=== PATIENT | female | born 1970 | race Caucasian/White ===

== ENCOUNTER 2017-02-27 21:03 | Observation (INO) ==
--- NOTE | 2017-02-27 21:15 | Emergency Department Note ---
Disposition Clinical Impression: Chest pain Qualifiers: Chest pain type: unspecified Qualified Code(s): R07.9 - Chest pain, unspecified Leukocytosis Qualifiers: Leukocytosis type: unspecified Qualified Code(s): D72.829 - Elevated white blood cell count, unspecified Disposition: Admitted As Inpatient Time of Disposition: 02:02 Chest Pain HPI - General Chief Complaint: ED Chest Pain Stated Complaint: Chest pain Time Seen by Provider: 02/27/17 21:06 Source: patient Limitations: no limitations Vital Signs Reviewed: Yes Nursing Notes Reviewed: Yes - History of Present Illness Pt complaint: chest pain Onset (ago): hour(s) Duration: intermittent Onset: during rest Pain Location: right chest Severity scale (1-10): 10 Pain Radiation: back (right thoracic region) Improves with: nothing Worsens with: inspiration Associated symptoms: Denies: vomiting, diaphoresis, dyspnea, palpitations, fever , cough, leg swelling Treatments prior to arrival chest pain: none - Related Data Home Medications Medication Instructions Recorded Confirmed Hydrochlorothiazide 25 mg PO DAILY 04/28/15 04/28/15 Loratadine [Claritin] 10 mg PO DAILY PRN 04/28/15 04/28/15 Previous Rx's Medication Instructions Recorded ALPRAZolam [Xanax 0.5 MG Tablet] 0.5 mg PO TID PRN #90 tablet 04/29/15 Docusate [Colace] 100 mg PO BID PRN #60 capsule 04/29/15 Ferrous Sulfate 325 mg PO BID #60 tablet 04/29/15 Ibuprofen [Motrin] 600 mg PO Q6HR PRN #40 tablet 04/29/15 OxyCODONE/APAP 5/325 [Percocet 1 each PO Q4HR PRN #40 tablet 04/29/15 5/325] Allergies Allergy/AdvReac Type Severity Reaction Status Date / Time No Known Allergies Allergy Verified 04/21/15 12:18 All systems ED: reviewed and negative except as stated. Constitutional: Denies: fever, chills Eyes: Denies: eye pain ENT ED: Denies: ear pain Cardiovascular: Reports: as per HPI Respiratory: Denies: cough, dyspnea, wheezes, hemoptysis Gastrointestinal: Denies: abdominal pain Musculoskeletal: Reports: as per HPI. Denies: neck pain Integumentary: Denies: rash Neurological: Denies: headache Psychiatric: Reports: anxiety Endocrine: Denies: fatigue Hematological/Lymphatic: Denies: easy bleeding Allergic/Immunologic: Denies: facial swelling Chest Pain PMH - Past Medical History Medical history: Reports: no medical history Psychiatric history: Reports: anxiety - Social History Smoking Status: Never smoker Alcohol use: Reports: none, occasionally Drug use: Reports: none Physical Exam - General Limitations: no limitations General appearance: alert, in no apparent distress - Head Head exam: normocephalic - Eye Eye exam: Present: EOMI - ENT ENT exam: mucous membranes moist - Neck Neck exam: Present: full ROM. Absent: tenderness - Chest Chest inspection: Present: symmetric chest wall rise - Respiratory Respiratory exam: Present: normal lung sounds bilaterally. Absent: respiratory distress, wheezes, stridor, accessory muscle use - Cardiovascular Cardiovascular exam: Present: regular rate, normal rhythm, normal heart sounds - Abdominal Exam Abdominal exam: Present: soft, Non-Tender - Extremities Exam Extremities exam: Present: full ROM - Back Exam Back exam: Present: full ROM. Absent: CVA tenderness (R), CVA tenderness (L) - Neurological Exam Neurological exam: Present: alert - Psychiatric Psychiatric exam: Present: normal affect - Skin Skin exam: Present: warm, dry, intact, normal color. Absent: rash, cyanosis, diaphoresis Course Course Narrative: Patient is a 46-year-old female male ambulates to the exam room with complaints of intermittent right-sided chest pain that started earlier today. Patient was initially seen at triage area per request of the nursing. Patient hypertensive otherwise vitals within normal limits. Patient denies history of PE, DVT, cough , fever, dyspnea, orthopnea, or similar symptoms on exertion. Patient is in no acute distress, she does not look toxic. Lungs clear to auscultation. Heart regular rate and rhythm. Pain is not worse with palpation , or movement of extremities. No radiation of pain to back, or upper extremities. No labored breathing, no diaphoresis. Radial pulses equal bilaterally. Workup initiated. - Reevaluation(s) Reevaluation #1: EKG ST changes in v4-v6, with comparison to EKG from 2015. Patient was discussed with Dr. Hutchinson who agreed with workup and decision for admit for cardiac rule out. Patient also mentions she had a stress test and echo a few months ago with her disaster or damage control specialist Julius. She had these performed after having palpitations. Patient tells me that these had been normal, and a performed at [facility] [place]. I have requested her records. Patient had contacted Dr. Madrid via text messaging while she was here in the department, patient mentioned she was agreeable for phone call. I had called Dr. Madrid and spoke with him regarding the patient. He did mention that patient had a normal stress and echo earlier this year, but had agreed that patient should be admitted regardless of patient's EKG comparison with her more recent EKG. Patient had initially declined IV, but is now agreeable, and is now requesting pain medication as well. Aspirin ordered. Nitroglycerin ordered. Time: 22:09 Reevaluation #2: No relief from Nitro. Two-view chest x-ray shows right middle lobe infiltrate. Patient also has a slight increased white blood cell count he denies fever home and is afebrile here. She does mention a cough, and is observed coughing in exam room, but states it is related to her allergies. Blood cultures, lactic ordered. Time: 22:18 Reevaluation #3: Patient did become hypotensive after nitroglycerin, fluids have been ordered. She has declined IV morphine for pain but was agreeable to Toradol, with mild improveent. At this point we have not received records from [facility] where patient had had recent cardiac workup. She is resting comfortably in exam bed. Patient discussed with and accepted by hospitalist Dr. Lopez who had requested repeat troponin, IV Rocephin, and po azithromycin. Time: 02:01 Vital Signs Temperature 98.2 F 02/27/17 21:04 Pulse Rate 91 02/27/17 21:04 Respiratory Rate 20 02/27/17 21:04 Blood Pressure 169/95 02/27/17 21:04 O2 Sat by Pulse Oximetry 100 02/27/17 21:04 Temperature 98.2 F 02/27/17 21:04 Pulse Rate 80 02/28/17 00:49 Respiratory Rate 18 02/28/17 00:49 Blood Pressure 117/78 02/28/17 00:49 O2 Sat by Pulse Oximetry 98 02/28/17 00:49 Oxygen Delivery Oxygen Delivery Room Air Chest Pain - Lab Data Result diagrams: 02/27/17 21:30 02/27/17 21:30 Lab Results 02/27/17 02/27/17 02/27/17 Range/Units 21:30 21:30 21:30 WBC 11.4 H (4.3-11.1) K/mcL RBC 4.58 (3.82-4.97) M/mcL Hgb 13.5 (11.5-15.4) g/dL Hct 39.4 (35.3-44.9) % MCV 86.0 (83.0-100.0) fL MCH 29.5 (28.0-33.3) pg MCHC 34.3 (31.6-35.5) g/dL RDW 12.7 (11.5-14.5) % Plt Count 360 (140-400) K/mcL MPV 9.4 (9.4-12.4) fL Immature Gran % 0.4 (0-4) % Seg Neutrophils % 67.6 % Lymphocytes % 21.6 % Monocytes % 8.7 % Eosinophils % 1.3 % Basophils % 0.4 % Neutrophils # 7.7 (1.6-8.9) K/mcL Lymphocytes # 2.5 (0.6-4.6) K/mcL Monocytes # 1.0 (0.0-1.3) K/mcL Eosinophils # 0.2 (0.0-0.6) K/mcL Basophils # 0.1 (0.0-0.2) K/mcL Immature Plt Fraction 2.0 (1.1-6.1) % Sodium 138 (136-145) mEq/L Potassium 3.0 L (3.5-4.5) mEq/L Chloride 102 (98-109) mEq/L Carbon Dioxide 23 (19-29) mEq/L BUN 24 H (7-20) mg/dL Creatinine 1.00 (0.57-1.11) mg/dL Est GFR ( Amer) > 60 (> 60) Est GFR (Non-Af Amer) 60 (> 60) BUN/Creatinine Ratio 24 (6-26) Glucose 95 (70-99) mg/dL Calculated Osmolality 290 (280-300) Lactic Acid (0.5-2.2) mmol/L Calcium 9.4 (8.6-10.8) mg/dL Troponin I 0.00 (0-0.03) ng/mL 08/31/17 Range/Units 22:38 WBC (4.3-11.1) K/mcL RBC (3.82-4.97) M/mcL Hgb (11.5-15.4) g/dL Hct (35.3-44.9) % MCV (83.0-100.0) fL MCH (28.0-33.3) pg MCHC (31.6-35.5) g/dL RDW (11.5-14.5) % Plt Count (140-400) K/mcL MPV (9.4-12.4) fL Immature Gran % (0-4) % Seg Neutrophils % % Lymphocytes % % Monocytes % % Eosinophils % % Basophils % % Neutrophils # (1.6-8.9) K/mcL Lymphocytes # (0.6-4.6) K/mcL Monocytes # (0.0-1.3) K/mcL Eosinophils # (0.0-0.6) K/mcL Basophils # (0.0-0.2) K/mcL Immature Plt Fraction (1.1-6.1) % Sodium (136-145) mEq/L Potassium (3.5-4.5) mEq/L Chloride (98-109) mEq/L Carbon Dioxide (19-29) mEq/L BUN (7-20) mg/dL Creatinine (0.57-1.11) mg/dL Est GFR ( Amer) (> 60) Est GFR (Non-Af Amer) (> 60) BUN/Creatinine Ratio (6-26) Glucose (70-99) mg/dL Calculated Osmolality (280-300) Lactic Acid 0.6 (0.5-2.2) mmol/L Calcium (8.6-10.8) mg/dL Troponin I (0-0.03) ng/mL - EKG Data EKG attestation: Yes I reviewed and interpreted this EKG. EKG results narrative: Moderate ST depression precordial leads, new with Comparison to EKG of 2015 Ventricular rate 82, IA interval 153, QRS duration 86, QT/QTc is 365/404 EKG shows normal: sinus rhythm Rate: normal Rhythm: arrhythmia ST segment depression in: v4, v5, v6 When compared to previous EKG there are: changes noted Attestation Statement - Attestation Attestation: For this encounter, I have reviewed the OUTREACH COUNSELOR or PA documentation, treatment plan, and medical decision making; and I have had face to face time with this patient 46-year-old with chest pain with radiation to the arm. No history of previous TX. Physical exam lungs are clear abdomen soft. EKG shows some new ST segment depression in precordial leads. Labs are pending patient will likely require admission.
[2017-02-27 21:37] LABS: Basophils # 0.1 K/mcL (0.0-0.2); Basophils % 0.4 %; Eosinophils # 0.2 K/mcL (0.0-0.6); Eosinophils % 1.3 %; Hematocrit 39.4 % (35.3-44.9); Hemoglobin 13.5 g/dL (11.5-15.4); Immature Granulocytes % 0.4 % (0-4); Lymphocytes # 2.5 K/mcL (0.6-4.6); Lymphocytes % 21.6 %; Mean Corpuscular HGB Conc 34.3 g/dL (31.6-35.5); Mean Corpuscular Hemoglobin 29.5 pg (28.0-33.3); Mean Platelet Volume 9.4 fL (9.4-12.4); Monocytes % 8.7 %; Neutrophils # 7.7 K/mcL (1.6-8.9); Platelet Count 360 K/mcL (140-400); Red Blood Count 4.58 M/mcL (3.82-4.97); Red Cell Distribution Width 12.7 % (11.5-14.5); Segmented Neutrophils % 67.6 %
[2017-02-27] MEDS ORDERED: Ondansetron 4 MG/2 ML VIAL IVP ONE (22:02)
[2017-02-27] MEDS ORDERED: Aspirin 81 MG TAB.CHEW PO ONE (22:02)
[2017-02-27] MEDS ORDERED: *HR* Morphine 2 MG/ML SYRINGE IVP PRN (22:02)
[2017-02-27 22:13] LABS: BUN/Creatinine Ratio 24 (6-26); Blood Urea Nitrogen 24 mg/dL (7-20); Calcium 9.4 mg/dL (8.6-10.8); Carbon Dioxide 23 mEq/L (19-29); Chloride 102 mEq/L (98-109); Glucose 95 mg/dL (70-99); Osmolality,Calculated 290 (280-300); Sodium 138 mEq/L (136-145); eGFR For African Americans > 60 (> 60); eGFR For Non-African Americans 60 (> 60)
[2017-02-27] MEDS: Nitroglycerin 0.4 MG TAB.SUBL SL ONE ×3 (22:30→22:40)
[2017-02-27] MEDS ORDERED: 0.9 % Sodium Chloride 1,000 ML ONE (22:45)
[2017-02-27] MEDS ORDERED: 0.9 % Sodium Chloride 1,000 ML IVC ONE ×2 (22:46→23:34)
[2017-02-27] MEDS ORDERED: Ketorolac 15 MG/ML VIAL IVP ONE (23:34)
[2017-02-28] MEDS ORDERED: *HR* OxyCODONE/APAP 5/325 TABLET PO ONE ×2 (00:23→06:01)
[2017-02-28] MEDS ORDERED: Azithromycin 250 MG TABLET PO ONE (01:58)
[2017-02-28] MEDS ORDERED: ALPRAZolam 0.5 MG TABLET PO ONE (06:00)
[2017-02-28] MEDS ORDERED: *HR* Morphine 2 MG/ML SYRINGE IVP PRN (06:16)
[2017-02-28] MEDS ORDERED: Ondansetron 4 MG/2 ML VIAL IVP PRN (06:16)
[2017-02-28] MEDS ORDERED: Acetaminophen 325 MG TABLET PO PRN (06:16)
[2017-02-28] MEDS ORDERED: Naloxone 0.4 MG/ML INJ IVP PRN (06:16)
[2017-02-28] MEDS ORDERED: ALPRAZolam 0.5 MG TABLET PO PRN (06:20)
--- NOTE | 2017-02-28 06:29 | Internal Med History&Physical ---
Date of Encounter: 02/28/17 Time of Encounter: 05:50 Assessment and Plan (1) Pneumonia Current visit: Yes Status: Acute Chest x-ray shows right mid lobe infiltrate. Consider community-acquired pneumonia. Not meet criteria for sepsis. - We will continue treat patient with IV azithromycin and Rocephin. - Pain control. Symptomatic and supportive treatment Qualifiers: Pneumonia type: due to Pneumococcus Laterality: right Lung location: middle lobe of lung Qualified Code(s): J13 - Pneumonia due to Streptococcus pneumoniae (2) DVT prophylaxis Current visit: Yes Status: Acute Heparin subcutaneously. (3) Chest pain Current visit: Yes Status: Acute Patient has right-sided infiltrate on chest x-ray. Right-sided pleural pain most likely caused by pneumonia. However, we will rule out others severe conditions. - We will place patient on cardiac monitoring and check 3 sets of troponin to rule out ACS. - Patient has a pleural pain, need to rule out segmental PE, will check d-dimer , if positive patient needs a CTA to rule out PE. Qualifiers: Chest pain type: chest pain on breathing Qualified Code(s): R07.1 - Chest pain on breathing; R07.81 - Pleurodynia Internal Medicine - H&P: HPI Chief complaint: Chest pain Admitted From: Home Plans for Post Hospital Care: Home History of present illness: Ms. Harrington is a 46 year old female with history of hypertension, S/P hysterectomy, present to ER for chest pain. Patient said that the pain started yesterday, located on the right chest, 10 out of 10, stabbing and sharp, radiated to the right side back. Pain is worse when patient moves or takes deep breath. Patient denies fever, shortness of breath, nausea, diaphoresis. Patient has a mild cough but it is chronic and was thought due to her allergy. Patient had stress test in [facility] recently (in this summer but cannot remember exact date), result is negative. In the emergency room, chest x-ray shows right middle lobe infiltrate. Patient was admitted as pneumonia. Past Med Surg Social Fam HX - Past Medical History Medical history: no medical history Psychiatric history: anxiety - Past Surgical History Surgical History: hysterectomy - Social History Smoking Status: Never smoker Smokeless Tobacco Status: No Alcohol use: none, occasionally Drug use: none - Family History Mother Living Status: Still Living Hx Family Cardiac Disorders: Yes Hx Family Respiratory Disorders: No Hx Family Cancer: No Hx Family GI Disorders: No Hx Family Genitourinary Disorders: No Hx Family Endocrine Disorder: No Hx Family Musculoskeletal Disorders: No Hx Family Neuromuscular Disorders: No Hx Family Neurologic Disorders: No Hx Family HEENT Disorders: No Hx Family Autoimmune Disorders: No Hx Family Reproductive Disorders: No Hx Family Psychosocial Disorders: No Hx Family Medical Disorders: No Internal Medicine - H&P: Meds Hydrochlorothiazide 25 mg PO DAILY 04/28/15 [History] Loratadine [Claritin] 10 mg PO DAILY PRN 04/28/15 [History] ALPRAZolam [Xanax 0.5 MG Tablet] 0.5 mg PO TID PRN #90 tablet 04/29/15 [Rx] Docusate [Colace] 100 mg PO BID PRN #60 capsule 04/29/15 [Rx] Ferrous Sulfate 325 mg PO BID #60 tablet 04/29/15 [Rx] Ibuprofen [Motrin] 600 mg PO Q6HR PRN #40 tablet 04/29/15 [Rx] OxyCODONE/APAP 5/325 [Percocet 5/325] 1 each PO Q4HR PRN #40 tablet 04/29/15 [Rx ] 3 Allergy/AdvReac Type Severity Reaction Status Date / Time No Known Allergies Allergy Verified 04/21/15 12:18 All Systems PM: A 10-system review of systems was performed and is negative for pertinent findings except as documented above in the HPI. - Constitutional Vitals: Temp Pulse Resp BP Pulse Ox 97.8 F 75 14 112/66 98 02/28/17 03:11 02/28/17 03:11 02/28/17 03:02/28/17 03:11 02/28/17 03:11 General appearance: Present: mild distress, A&O X 3, answers questions appropriately - Head Head exam: Present: atraumatic, normocephalic - Eye Eye exam: Present: PERRL, conjuntiva pink, sclera anicteric Pupils: Present: PERRL - Neck Neck exam general surgery: Present: supple, trachea midline. Absent: lymphadenopathy - Respiratory Respiratory exam: Present: CTAB. Absent: accessory muscle use, rales, rhonchi, wheezes - Cardiovascular Cardiovascular exam: Present: RRR, +S1, +S2. Absent: diastolic murmur, gallop, rubs, systolic murmur - GI/Abdominal GI/Abdominal exam: Present: normal bowel sounds, soft, no peritoneal signs. Absent: distended, tenderness - Extremities Exam Extremities exam: Present: warm, radial pulses palpable and symmetrical. Absent : calf tenderness, cyanotic, pedal edema - Neurological Exam Neurological exam: Present: CN II-XII intact, oriented X3, no focal deficits. Absent: pronater drift, facial droop, speech deficit - Skin Skin exam: Present: dry, intact Internal Med - H&P Results - Labs CBC & Chem 7: 02/27/17 21:30 02/27/17 21:30 Labs: Cardiac Enzymes 02/28/17 Range/Units 03:15 Troponin I 0.00 (0-0.03) ng/mL - EKG Data -: EKG Interpreted by Myself EKG shows normal: sinus rhythm (Mild ST depression)
[2017-02-28] MEDS: 0.9 % Sodium Chloride 1,000 ML IVC SCH ×2 (06:45→21:29)
[2017-02-28] MEDS: *HR* Heparin 5,000 UNIT/ML VIAL SQ SCH ×2 (06:46→17:33)
[2017-02-28] MEDS: hydroCHLOROthiazide 25 MG TABLET PO SCH (08:11)
[2017-02-28 09:44] LABS: Hematocrit 33.6 % (35.3-44.9); Mean Corpuscular HGB Conc 32.7 g/dL (31.6-35.5); Mean Corpuscular Hemoglobin 28.9 pg (28.0-33.3); Mean Corpuscular Volume 88.2 fL (83.0-100.0); Platelet Count 253 K/mcL (140-400); Red Blood Count 3.81 M/mcL (3.82-4.97); Red Cell Distribution Width 12.7 % (11.5-14.5)
[2017-02-28 09:51] LABS: Alanine Aminotransferase 6 Units/L (0-55); Albumin 2.7 g/dL (3.5-5.0); Alkaline Phosphatase 63 Units/L (38-126); Aspartate Amino Transferase 11 Units/L (5-34); BUN/Creatinine Ratio 20 (6-26); Bilirubin,Total 0.6 mg/dL (0.2-1.2); Blood Urea Nitrogen 20 mg/dL (7-20); Calcium 8.2 mg/dL (8.6-10.8); Carbon Dioxide 29 mEq/L (19-29); Chloride 106 mEq/L (98-109); Globulin 2.8 g/dL (2.4-3.5); Glucose 140 mg/dL (70-99); Osmolality,Calculated 295 (280-300); Potassium 3.4 mEq/L (3.5-4.5); Sodium 140 mEq/L (136-145); Total Protein 5.5 g/dL (6.0-8.3); eGFR For African Americans > 60 (> 60); eGFR For Non-African Americans > 60 (> 60)
[2017-02-28] MEDS: *HR* HYDROcodone/Acet 5/325 mg TABLET PO PRN ×2 (14:29→21:21)
--- NOTE | 2017-02-28 14:57 | Event Note ---
Date of Encounter: 02/28/17 Time of Encounter: 14:53 Seen and examoned at [facility]. Admitted overnight for pneumonia and chest pain. Says she feels better today, CP improved and occurs with deep inspiration. 1. Pneumonia: Chest x-ray shows right mid lobe infiltrate. Cont IV azithromycin and Rocephin. Urinary antigens, sputum culture, respiratory PCR pending 2. Chest pain: reports right sided CP, worse wit inspiration and now improved. Serial troponins negative, d-dimer normal. Low suspicion for ACS or pulmonary embolism. Suspect secondary to pneumonia. Treat underlying cause.
[2017-02-28 18:59] LABS: Adenovirus Not Detected (Not Detect); Bordetella Pertussis Not Detected (Not Detect); Chlamydophila pneumoniae Not Detected (Not Detect); Coronavirus 229E Not Detected (Not Detect); Coronavirus HKU1 Not Detected (Not Detect); Coronavirus NL63 Not Detected (Not Detect); Coronavirus OC43 Not Detected (Not Detect); Human Metapneumovirus Not Detected (Not Detect); Human Rhinovirus/Enterovirus Not Detected (Not Detect); Influenza A Subtype 2009 H1 Not Detected (Not Detect); Influenza A Untypeable Not Detected (Not Detect); Influenza B Not Detected (Not Detect); Mycoplasma pneumoniae Not Detected (Not Detect); Parainfluenza Virus 1 Not Detected (Not Detect); Parainfluenza Virus 2 Not Detected (Not Detect); Parainfluenza Virus 3 Not Detected (Not Detect); Parainfluenza Virus 4 Not Detected (Not Detect); Respiratory Syncytial Virus Not Detected (Not Detect)
[2017-03-01 01:49] LABS: Basophils % 0.7 %; Eosinophils # 0.2 K/mcL (0.0-0.6); Eosinophils % 3.1 %; Hematocrit 33.5 % (35.3-44.9); Hemoglobin 11.1 g/dL (11.5-15.4); Immature Granulocytes % 0.2 % (0-4); Lymphocytes # 2.2 K/mcL (0.6-4.6); Mean Corpuscular HGB Conc 33.1 g/dL (31.6-35.5); Mean Corpuscular Hemoglobin 29.6 pg (28.0-33.3); Mean Corpuscular Volume 89.3 fL (83.0-100.0); Mean Platelet Volume 10.1 fL (9.4-12.4); Monocytes # 0.5 K/mcL (0.0-1.3); Monocytes % 9.7 %; Neutrophils # 2.6 K/mcL (1.6-8.9); Platelet Count 234 K/mcL (140-400); Red Blood Count 3.75 M/mcL (3.82-4.97); Red Cell Distribution Width 12.8 % (11.5-14.5); Segmented Neutrophils % 47.3 %
[2017-03-01 02:06] LABS: BUN/Creatinine Ratio 20 (6-26); Blood Urea Nitrogen 23 mg/dL (7-20); Calcium 8.5 mg/dL (8.6-10.8); Carbon Dioxide 28 mEq/L (19-29); Chloride 109 mEq/L (98-109); Glucose 106 mg/dL (70-99); Osmolality,Calculated 300 (280-300); Potassium 3.7 mEq/L (3.5-4.5); Sodium 143 mEq/L (136-145); eGFR For African Americans > 60 (> 60); eGFR For Non-African Americans 51 (> 60)
[2017-03-01] MEDS: *HR* Heparin 5,000 UNIT/ML VIAL SQ SCH (06:00)
[2017-03-01] MEDS: *HR* HYDROcodone/Acet 5/325 mg TABLET PO PRN ×2 (06:00→14:54)
[2017-03-01] MEDS ORDERED: Azithromycin 500 MG in D5% in Water 250 ML IVPB SCH (07:00)
[2017-03-01] MEDS: hydroCHLOROthiazide 25 MG TABLET PO SCH (07:14)
[2017-03-01 08:58] LABS: Hematocrit 32.2 % (35.3-44.9); Hemoglobin 10.5 g/dL (11.5-15.4); Immature Platelets 1.5 % (1.1-6.1); Mean Corpuscular HGB Conc 32.6 g/dL (31.6-35.5); Mean Corpuscular Hemoglobin 29.3 pg (28.0-33.3); Mean Corpuscular Volume 89.9 fL (83.0-100.0); Mean Platelet Volume 9.9 fL (9.4-12.4); Red Blood Count 3.58 M/mcL (3.82-4.97); Red Cell Distribution Width 12.7 % (11.5-14.5)
[2017-03-01 09:12] LABS: Alanine Aminotransferase 35 Units/L (0-55); Albumin 2.6 g/dL (3.5-5.0); Albumin/Globulin Ratio 0.9 (1.1-2.2); Alkaline Phosphatase 63 Units/L (38-126); Aspartate Amino Transferase 54 Units/L (5-34); BUN/Creatinine Ratio 20 (6-26); Blood Urea Nitrogen 19 mg/dL (7-20); Calcium 8.1 mg/dL (8.6-10.8); Carbon Dioxide 26 mEq/L (19-29); Chloride 111 mEq/L (98-109); Globulin 2.9 g/dL (2.4-3.5); Glucose 152 mg/dL (70-99); Osmolality,Calculated 297 (280-300); Potassium 3.8 mEq/L (3.5-4.5); Sodium 141 mEq/L (136-145); Total Protein 5.5 g/dL (6.0-8.3); eGFR For African Americans > 60 (> 60); eGFR For Non-African Americans > 60 (> 60)
[2017-03-01 09:15] LABS: Bilirubin,Total < 0.3 mg/dL (0.2-1.2)
[2017-03-01 11:26] VITALS: BP 118/77
--- NOTE | 2017-03-01 14:56 | Discharge Summary ---
Date of Encounter: 03/01/17 Time of Encounter: 14:48 - Discharge Diagnosis (1) Community acquired bacterial pneumonia Priority: Primary Status: Acute - Discharge Medications Prescriptions: HYDROcodone/Acet 5/325 mg [Hunt 5-325 mg] 1 tab PO Q4HR PRN #10 tab PRN Reason: Moderate Pain (4-6) Azithromycin [Zithromax] 250 mg PO DAILY #3 tablet Cefdinir [Omnicef] 300 mg PO BID #8 capsule Naproxen [Naprosyn] 500 mg PO BID #20 tablet Home Medications: Hydrochlorothiazide 25 mg PO DAILY 04/28/15 [History] Loratadine [Claritin] 10 mg PO DAILY PRN 04/28/15 [History] Docusate [Colace] 100 mg PO BID PRN #60 capsule 04/29/15 [Rx] Ferrous Sulfate 325 mg PO BID #60 tablet 04/29/15 [Rx] ALPRAZolam [Xanax 1 MG Tablet] 1 mg PO TID PRN 02/28/17 [History] Azithromycin [Zithromax] 250 mg PO DAILY #3 tablet 03/01/17 [Rx] Cefdinir [Omnicef] 300 mg PO BID #8 capsule 03/01/17 [Rx] HYDROcodone/Acet 5/325 mg [Hunt 5-325 mg] 1 tab PO Q4HR PRN #10 tab 03/01/17 [ Rx] Naproxen [Naprosyn] 500 mg PO BID #20 tablet 03/01/17 [Rx] Allergies/Adverse Reactions: 3 Allergy/AdvReac Type Severity Reaction Status Date / Time No Known Allergies Allergy Verified 04/21/15 12:18 Date of admission: 02/28/17 02:05 Primary care physician: Ramón Stone Discharging clinician: Ever Diop - Patient Status Disposition: Home, Self-Care Condition: Good - Discharge Instructions Instructions: Chest Pain (DC), Community-acquired Pneumonia (DC) Follow Up With: Ramón Stone DO [Primary Care Provider] - Additional Instructions: Follow-up appointments: If there is not an appointment listed below, please call your physician and schedule a follow-up appointment. If you have congestive heart failure and your symptoms return, make an appointment with your physician. Medication List: Carry an up to date list of medications you are taking at all time. We have given you an updated medication list including any new medications that you have been prescribed. Please provide that list to your primary provider Symptoms: If your condition changes or you experience any of the following symptoms, notify your physician immediately: Unusual or worsening pain, fever, persistent nausea and vomiting, bleeding, increase in swelling (especially in your legs), sudden weight gain, extreme dizziness, chest pain, increased drainage or redness from a wound or incision. Go to the emergency department if you experience a problem with breathing. Weights: If you have a history of swelling or shortness of breath, weigh yourself daily and notify your physician if you have a weight gain of two or more pounds in one day or 5 or more pounds in a week. If you experience any of the warning signs for stroke: Sudden numbness or weakness of the face, arm or leg; especially on one side of the body, sudden confusion, trouble speaking or understanding, sudden trouble seeing in one or both eyes, sudden trouble walking, dizziness, loss of balance or coordination, sudden sever headache with no cause; Call 911 or go to the emergency room. Stroke is a medical emergency. Some risk factors for stroke: Age, cigarette smoking, diabetes, excessive alcohol consumption, family history , high blood pressure, overweight, physical inactivity, prior stroke, heart attack, diagnosis of carotid artery stenosis or other artery disease. If you smoke, STOP: Smoking or tobacco use significantly increases your risk of heart and lung disease. Your chance of disease greatly increases if you continue to smoke. For more information, call the [place] tobacco quit line for smoking cessation QUIT-NOW ( ) - Diet and Activity Activity: increase activity as tolerated Diet: advance to your usual diet Interval History: Ms. Harrington is a 46 year old female with history of hypertension, S/P hysterectomy, present to ER for chest pain. Patient said that the pain started yesterday, located on the right chest, 10 out of 10, stabbing and sharp, radiated to the right side back. Pain is worse when patient moves or takes deep breath. Patient denies fever, shortness of breath, nausea, diaphoresis. Patient has a mild cough but it is chronic and was thought due to her allergy. Patient had stress test in [facility] recently (in this summer but cannot remember exact date), result is negative. In the emergency room, chest x-ray shows right middle lobe infiltrate. Patient was admitted as pneumonia. Hospital course: Ms. Harrington is a 46 year old female She was treated with Two doses of Rocephin and azithromycin. She was discharged home in good condition to finish course of Omnicef and azithromycin. - Time Spent with Patient Total time spent providing and/or coordinating discharge services: - Constitutional Vitals: Temp Pulse Resp BP Pulse Ox 97.6 F 75 16 118/77 98 03/01/17 11:25 03/01/17 11:25 03/01/17 11:25 03/01/17 11:25 03/01/17 11:25 General appearance: Present: mild distress, A&O X 3, answers questions appropriately - Respiratory Respiratory exam: Present: CTAB. Absent: accessory muscle use, rales, rhonchi, wheezes - Cardiovascular Cardiovascular exam: Present: RRR, +S1, +S2. Absent: diastolic murmur, gallop, rubs, systolic murmur - GI/Abdominal GI/Abdominal exam: Present: normal bowel sounds, soft, no peritoneal signs. Absent: distended, tenderness
--- NOTE | 2017-03-04 07:55 | Electrocardiograph Report ---
[place] [id number] Test Date: 2017-02-27 Pat Name: Autumn Harrington Department: 104 Room: 3B14 Gender: F Sample Wrapper: RENEE : 1970 Requested By: Joseph Cortez Order Number: [id number] Reading MD: Toy Pruett DO Measurements Intervals [place] Rate: 82 P: 62 [place]: 153 QRS: 38 QRSD: 86 T: 45 QT: 365 QTc: 404 Interpretive Statements Sinus rhythm with sinus arrhythmia Electronically Signed On 02-28-2017 17:01:31 EDT by Toy Pruett DO
== END 2017-03-01 15:30 | disposition home or self-care (01) ==
LOC: 3BNU 21:03 → EMEROO 21:03 → 3BNU 02-28 02:45
PROVIDERS: ADMIT Internal Medicine; ATTEND Registered Nurse

== ENCOUNTER 2018-08-20 22:59 | Inpatient (IN) ==
[2018-08-20 23:29] LABS: Basophils # 0.1 K/mcL (0.0-0.2); Basophils % 0.8 %; Eosinophils # 0.2 K/mcL (0.0-0.6); Eosinophils % 2.1 %; Hematocrit 43.8 % (35.3-44.9); Hemoglobin 14.6 g/dL (11.5-15.4); Immature Granulocytes % 0.3 % (0-4); Lymphocytes # 2.1 K/mcL (0.6-4.6); Lymphocytes % 24.4 %; Mean Corpuscular HGB Conc 33.3 g/dL (31.6-35.5); Mean Corpuscular Hemoglobin 29.4 pg (28.0-33.3); Mean Corpuscular Volume 88.1 fL (83.0-100.0); Mean Platelet Volume 9.5 fL (9.4-12.4); Monocytes # 0.5 K/mcL (0.0-1.3); Neutrophils # 5.7 K/mcL (1.6-8.9); Platelet Count 350 K/mcL (140-400); Red Blood Count 4.97 M/mcL (3.82-4.97); Red Cell Distribution Width 13.2 % (11.5-14.5); Segmented Neutrophils % 66.4 %
--- NOTE | 2018-08-20 23:37 | Emergency Department Note ---
Disposition Clinical Impression: Unstable angina pectoris Chest pain Qualifiers: Chest pain type: unspecified Qualified Code(s): R07.9 - Chest pain, unspecified Disposition: Admitted As Inpatient Condition: Undetermined Time of Disposition: 00:16 Chest Pain HPI - General Chief Complaint: ED Chest Pain Stated Complaint: chest pains, just had ekg, had 24 hr monitor Time Seen by Provider: 08/20/18 23:05 Source: patient Mode of arrival: ambulatory Limitations: no limitations Vital Signs Reviewed: Yes Nursing Notes Reviewed: Yes - History of Present Illness HPI Narrative: 48-year-old female with history of diabetes, hypertension, arrives to the emergency department with intermittent episodes of bilateral chest pain radiating down to bilateral upper extremities with a large amount of pressure in bilateral arms that has been intermittent over the course the past 4 weeks. The patient states mostly this occurs when she is sitting walking up and down stairs or exerting herself slightly but states that over the past 2448 hrs. she has had episodes when she has been doing nothing. Patient's last episode just prior to arrival she went up steps and started having chest pain and it went away when she gets up steps. The patient states then she got into a bathtub and what she was sitting down in the bathtub had another episode of chest discomfort. The patient states she has associated shortness of breath, no diaphoresis or nausea at that time. Denies any other complaints at this time. She is resting comfortably with no chest pain at this time. Patient denies any hemoptysis, unilateral leg swelling, recent surgeries or immobilizations, history DVT or PE. - Related Data Home Medications Medication Instructions Recorded Confirmed Xanax 05/24/18 Previous Rx's Medication Instructions Recorded RX: Metformin HCl 500 mg PO BID #60 tablet 05/24/18 RX: glipiZIDE [Glucotrol] 5 mg PO BID #60 tablet 05/24/18 Allergies Allergy/AdvReac Type Severity Reaction Status Date / Time Penicillins [PCN] Allergy See Verified 05/24/18 15:10 Comments All systems ED: reviewed and negative except as stated. Constitutional: Denies: fever, chills, weakness ENT ED: Denies: dysphagia Cardiovascular: Reports: chest pain, dyspnea on exertion. Denies: orthopnea, edema, syncope Respiratory: Reports: dyspnea. Denies: cough, sputum production Gastrointestinal: Denies: abdominal pain, nausea, vomiting Genitourinary: Denies: urgency, dysuria Musculoskeletal: Denies: back pain Integumentary: Denies: rash Neurological: Denies: headache Chest Pain PMH - Past Medical History Medical history: Reports: diabetes, hypertension Surgical history: Reports: hysterectomy Psychiatric history: Reports: anxiety - Social History Smoking Status: Never smoker Alcohol use: Reports: none Drug use: Reports: none Physical Exam - General Limitations: no limitations General appearance: alert, in no apparent distress - Head Head exam: atraumatic, normocephalic, normal inspection - Eye Eye exam: Present: normal appearance, PERRL, EOMI - ENT ENT exam: normal exam, normal oropharynx, mucous membranes moist - Neck Neck exam: Present: normal inspection, full ROM, trachea midline - Chest Chest inspection: Present: normal inspection, symmetric chest wall rise - Respiratory Respiratory exam: Present: normal lung sounds bilaterally - Cardiovascular Cardiovascular exam: Present: regular rate, normal rhythm, normal heart sounds - Abdominal Exam Abdominal exam: Present: soft, Non-Tender. Absent: tenderness, distention, guarding, rebound, rigidity - Extremities Exam Extremities exam: Present: normal inspection, full ROM. Absent: tenderness, pedal edema - Neurological Exam Neurological exam: Present: alert, oriented X3 - Skin Skin exam: Present: warm, dry, intact, normal color Course Vital Signs Pulse Rate 83 08/20/18 23:14 Respiratory Rate 16 08/20/18 23:14 Blood Pressure 160/103 08/20/18 23:14 O2 Sat by Pulse Oximetry 100 08/20/18 23:14 Pulse Rate 83 08/20/18 23:14 Respiratory Rate 16 08/20/18 23:14 Blood Pressure 160/103 08/20/18 23:14 O2 Sat by Pulse Oximetry 100 08/20/18 23:14 Oxygen Delivery Oxygen Delivery Room Air Chest Pain - MDM Narrative Medical decision making narrative: Patient's evaluation in the emergency department given trace no acute findings. I am concerned with the patient's chest pain and concern about unstable angina. The patient will be admitted to the hospital at this time for further observation and workup and care. Patient made aware and agrees to plan. No further questions or concerns noted. Accepted by Dr. Espinal. - Lab Data Lab results reviewed: Yes I reviewed the patient's lab results. Result diagrams: 08/20/18 23:15 08/20/18 23:15 Lab Results 08/20/18 08/20/18 08/20/18 Range/Units 23:05 23:15 23:15 WBC 8.6 (4.3-11.1) K/mcL RBC 4.97 (3.82-4.97) M/mcL Hgb 14.6 (11.5-15.4) g/dL Hct 43.8 (35.3-44.9) % MCV 88.1 (83.0-100.0) fL MCH 29.4 (28.0-33.3) pg MCHC 33.3 (31.6-35.5) g/dL RDW 13.2 (11.5-14.5) % Plt Count 350 (140-400) K/mcL MPV 9.5 (9.4-12.4) fL Immature Gran % 0.3 (0-4) % Seg Neutrophils % 66.4 % Lymphocytes % 24.4 % Monocytes % 6.0 % Eosinophils % 2.1 % Basophils % 0.8 % Neutrophils # 5.7 (1.6-8.9) K/mcL Lymphocytes # 2.1 (0.6-4.6) K/mcL Monocytes # 0.5 (0.0-1.3) K/mcL Eosinophils # 0.2 (0.0-0.6) K/mcL Basophils # 0.1 (0.0-0.2) K/mcL PT 11.5 (9.4-12.1) Seconds INR 1.0 APTT 32.2 (26.0-36.0) Seconds Sodium 139 (136-145) mEq/L Potassium 3.7 (3.5-5.1) mEq/L Chloride 103 (98-107) mEq/L Carbon Dioxide 29 (23-29) mEq/L BUN 16 (6-20) mg/dL Creatinine 0.81 (0.60-1.20) mg/dL Est GFR ( Amer) > 60 (> 60) Est GFR (Non-Af Amer) > 60 (> 60) BUN/Creatinine Ratio 20 (6-26) Glucose 149 H (70-105) mg/dL Calculated Osmolality 292 (280-300) Calcium 9.3 (8.6-10.3) mg/dL Troponin I < 0.03 (< 0.04) ng/mL - Radiology Data Radiology results reviewed: Yes I reviewed the patient's radiology results. Chest X-Ray 08/20/18 23:05 IMPRESSION: No acute cardiopulmonary disease. D/ / Sameer Patrick MD / Sameer Patrick MD Interpreting Provider: Sameer Patrick MD - EKG Data EKG attestation: Yes I reviewed and interpreted this EKG. EKG results narrative: Heart rate 81 beats for minute. Normal sinus rhythm. No ST elevation or ST depression noted. EKG similar appearance EKG from August 18 2018. Attestation Statement - Attestation Attestation: Dr. Donovan note: Patient seen in conjunction with resident Dr. Timmy Le. Please see his ch arting for complete documentation. I spent [id number] time with the patient and I agree with the patient's treatment and disposition. Pain-free at time of my evaluation. No vomiting diarrhea. No diaphoresis. Patient is having episodes parasternal chest pain both at rest tonight and often with exertion of stairs. Pain goes to both arms and is lasting anywhere between a couple seconds up to 10 minutes. She is a new onset diabetic with a strong family history of coronary disease. Discusses a stress test that was true 4 years ago. Admitted in stable condition with unremarkable blood work and EKG.
[2018-08-20 23:41] LABS: Prothrombin Time 11.5 Seconds (9.4-12.1)
[2018-08-20 23:43] LABS: Activated Partial Thrombo Time 32.2 Seconds (26.0-36.0)
[2018-08-20 23:48] LABS: BUN/Creatinine Ratio 20 (6-26); Blood Urea Nitrogen 16 mg/dL (6-20); Calcium 9.3 mg/dL (8.6-10.3); Carbon Dioxide 29 mEq/L (23-29); Chloride 103 mEq/L (98-107); Glucose 149 mg/dL (70-105); Osmolality,Calculated 292 (280-300); Potassium 3.7 mEq/L (3.5-5.1); Sodium 139 mEq/L (136-145); eGFR For Non-African Americans > 60 (> 60)
[2018-08-20 23:49] LABS: Troponin I < 0.03 ng/mL (< 0.04)
[2018-08-21] MEDS ORDERED: Aspirin 81 MG TAB.CHEW PO STA (00:01)
[2018-08-21] MEDS ORDERED: Naloxone 0.4 MG/ML INJ IVP PRN (01:48)
[2018-08-21] MEDS ORDERED: D5% in Water 1,000 ML IVC PRN (01:52)
[2018-08-21] MEDS ORDERED: *HR* Dextrose 50 % in Water (Syg) 50 ML SYRINGE IVP PRN (01:52)
[2018-08-21] MEDS ORDERED: Dextrose Gel 15 GM/37.5 ML TUBE PO PRN ×2 (01:52)
[2018-08-21] MEDS ORDERED: Dextrose 4 GM Chewable Tablets PO PRN ×2 (01:52)
--- NOTE | 2018-08-21 02:07 | Internal Med History&Physical ---
Date of Encounter: 08/21/18 Time of Encounter: 01:00 Internal Medicine - H&P: HPI Chief complaint: Chest Pain Admitted From: Home Plans for Post Hospital Care: Home History of present illness: Ms. Harrington is a 48 year old female with past medical history significant for hypertension, diabetes, and anxiety who presents for complaints of intermittent 10/10 sharp chest pain across chest for past 3-4 weeks radiating down both arms and to jaw. Pain is associated with shortness of breath and is worse with exertion. Pain resolves spontaneously without intervention and usually lasts only minutes, however episode that prompted current ER visit lasted longer than an hour. Denies current headache, chest pain, palpitations, shortness of breath, cough, nausea, bowel or bladder changes. ER reported EKG as sinus rhythm with no ST elevation or ST depression noted, similar in appearance to EKG from 08/18/18. Has been following with PCP Dr Clarke for the same and reports having normal EKG, normal chest xray, and 24 hour holter monitor that she reports turning in yesterday but has yet to be analyzed. Also has independently set up an appointment with Dr Madrid in August who is a payment manager at [facility] for the same. Has seen Dr Madrid around two years ago for palpitations and reports a normal echocardiogram and stress test being completed at that time. Also follows regularly with gynecology Dr Centeno. Checks blood sugars regularly at home and reports they have been averaging around 100. Has signifi cant cardiac family history with father having CABG, mother having valve replacement, and 2 brothers with history of [place]. Denies any tobacco or drug use, reports seldom alcohol use. Past Med Surg Social Fam HX - Past Medical History Medical history: diabetes, hypertension Additional medical history: diabetes type 2, x 2. Psychiatric history: anxiety - Past Surgical History Surgical History: hysterectomy Additional surgical history: TMJ sx. - Social History Smoking Status: Never smoker Smokeless Tobacco Status: No Alcohol use: none, rarely, occasionally Drug use: none - Family History Mother Living Status: Still Living Hx Family Cardiac Disorders: Yes Hx Family Respiratory Disorders: No Hx Family Cancer: No Hx Family GI Disorders: No Hx Family Endocrine Disorder: No Hx Family Neuromuscular Disorders: No Hx Family Neurologic Disorders: No Hx Family HEENT Disorders: No Hx Family Autoimmune Disorders: No Brother Hx Family Cardiac Disorders: Yes Father Hx Family Cardiac Disorders: Yes Internal Medicine - H&P: Meds Metformin HCl 500 mg PO BID #60 tablet 05/24/18 [Rx] Xanax 05/24/18 [History] glipiZIDE [Glucotrol] 5 mg PO BID #60 tablet 05/24/18 [Rx] Allergy/AdvReac Type Severity Reaction Status Date / Time Penicillins [PCN] Allergy See Verified 05/24/18 15:10 Comments All Systems PM: A 10-system review of systems was performed and is negative for pertinent findings except as documented above in the HPI. - Constitutional Vitals: Temp Pulse Resp BP Pulse Ox 97.5 F L 80 18 144/85 99 08/21/18 00:50 08/21/18 00:50 08/21/18 00:50 08/21/18 00:50 08/21/18 00:50 Exam: General: Alert and oriented. Skin:Normal color, no rash, no lesions. HEENT:Pupils equal, round and reactive. Cardiovascular:Normal S1 & S2, no rubs, murmurs or gallops. No JVD. Pulse regular. Lungs:Normal breath sounds, no wheezes or crackles. Abdomen:Soft, non-tender, no rigidity. Normoactive bowel sounds. Extremities:No deformity, no edema or tenderness, no joint swelling or clubbing. Neurological:Normal cognition and motor skills. Pulses:Carotid and radial pulses normal +2. Rest of the physical exam is non contributory. Internal Med - H&P Results - Labs CBC & Chem 7: 08/20/18 23:15 08/20/18 23:15 Labs: Short CBC 08/20/18 Range/Units 23:15 WBC 8.6 (4.3-11.1) K/mcL Hgb 14.6 (11.5-15.4) g/dL Hct 43.8 (35.3-44.9) % Plt Count 350 (140-400) K/mcL Neutrophils # 5.7 (1.6-8.9) K/mcL BMP 08/20/18 23:15 Sodium 139 Potassium 3.7 Chloride 103 Carbon Dioxide 29 BUN 16 Creatinine 0.81 Glucose 149 H Calcium 9.3 Cardiac Enzymes 08/20/18 Range/Units 23:15 Troponin I < 0.03 (< 0.04) ng/mL - Impressions ITS Impressions Chest X-Ray 08/20/18 23:05 IMPRESSION: No acute cardiopulmonary disease. D/ / Sameer Patrick MD / Sameer Patrick MD Interpreting Provider: Sameer Patrick MD - Assessment and plan (1) Chest pain Current Visit: Yes Status: Acute Assessment and plan: Continuous cardiac monitoring. Initial troponin negative, serial troponins ordered. Echocardiogram and stress test ordered. 24 hour holter monitor turned in yesterday to [facility], check for evaluation in a.m. NPO. Qualifiers: Chest pain type: unspecified Qualified Code(s): R07.9 - Chest pain, unspecified (2) Diabetes mellitus Current Visit: Yes Status: Chronic Assessment and plan: Hold home medications. Accucheck q6 hours. Sliding scale insulin. Qualifiers: Diabetes mellitus type: type 2 Diabetes mellitus chcf insulin use: without chcf use Diabetes mellitus complication status: without complication Qualified Code(s): E11.9 - Type 2 diabetes mellitus without complications (3) Hypertension Current Visit: Yes Status: Chronic Assessment and plan: Currently not on any antihypertensives. Previously on Hydrochlorothiazide. Monitor blood pressures q4 hours. Qualifiers: Hypertension type: unspecified Qualified Code(s): I10 - Essential (primary) hypertension (4) Anxiety Current Visit: Yes Status: Chronic Assessment and plan: Continue home medications once verified. - Time Spent With Patient Total time spent is greater than 50% in coordination of care (as documented) at patient's floor/unit and/or counseling patient:
[2018-08-21] MEDS: Insulin LISPRO 300 UNITS/3 ML VIAL SQ SCH ×3 (05:38→19:48)
[2018-08-21] MEDS: *HR* Heparin 5,000 UNIT/ML VIAL SQ SCH ×2 (05:39→17:15)
[2018-08-21 07:03] LABS: BUN/Creatinine Ratio 22 (6-26); Blood Urea Nitrogen 16 mg/dL (6-20); Calcium 8.4 mg/dL (8.6-10.3); Carbon Dioxide 23 mEq/L (23-29); Chloride 104 mEq/L (98-107); Glucose 91 mg/dL (70-105); Osmolality,Calculated 289 (280-300); Potassium 3.5 mEq/L (3.5-5.1); Sodium 139 mEq/L (136-145); eGFR For Non-African Americans > 60 (> 60)
[2018-08-21 07:14] LABS: Troponin I < 0.03 ng/mL (< 0.04)
[2018-08-21 08:57] LABS: Basophils # 0.1 K/mcL (0.0-0.2); Basophils % 0.9 %; Eosinophils # 0.4 K/mcL (0.0-0.6); Eosinophils % 6.2 %; Hematocrit 36.8 % (35.3-44.9); Immature Granulocytes % 0.4 % (0-4); Lymphocytes # 1.9 K/mcL (0.6-4.6); Lymphocytes % 28.2 %; Mean Corpuscular Hemoglobin 29.5 pg (28.0-33.3); Mean Corpuscular Volume 86.8 fL (83.0-100.0); Mean Platelet Volume 9.6 fL (9.4-12.4); Monocytes # 0.5 K/mcL (0.0-1.3); Monocytes % 7.5 %; Neutrophils # 3.9 K/mcL (1.6-8.9); Platelet Count 299 K/mcL (140-400); Red Blood Count 4.24 M/mcL (3.82-4.97); Red Cell Distribution Width 13.2 % (11.5-14.5); Segmented Neutrophils % 56.8 %
[2018-08-21 09:02] LABS: Hemoglobin 12.5 g/dL (11.5-15.4)
[2018-08-21 09:29] LABS: Thyroid Stimulating Hormone 1.239 mcIU/mL (0.340-5.600)
--- NOTE | 2018-08-21 13:45 | Cardiology Consult Note ---
<Colby Frazier - Last Filed: 08/21/18 13:42> Date of Encounter: 08/21/18 Time of Encounter: 13:42 Assessment and Plan (1) Chest pain Current Visit: Yes Status: Acute Patient presented for 4 weeks intermittent chest pain on exertion Associated radiation to both arms and neck with heaviness No previous cardiac disease, negative stress and echo 2 years ago On admission EKG, CXR, Trops normal. Repeat EKG T inversion in V2-V3 Stress test demonstrated med/large reversible perfusion defect in anterior apical segment, Gated EF 70% Report reviewed, test read and confirmed by Dr Flores Based on significantly abnormal stress test and history patient is candidate for cardiac catheterization Recommendations Discussed cath with patient Discussed with Dr. Lozano for cath, waiting on patient consent/NPO status Further recommendations per Dr Flores Qualifiers: Chest pain type: chest pain due to myocardial ischemia Ischemic chest pain type: stable angina pectoris Qualified Code(s): I20.8 - Other forms of angina pectoris (2) Abnormal cardiovascular stress test Current Visit: Yes Status: Acute As noted above Discussion w patient/family: The assessment and plan as outlined above was discussed with the patient and/or family members who expressed understanding and agreement. All questions were answered. Thank you for involving us in the care of your patient. Please call with any questions. History of Present Illness Consult date: 08/21/18 Requesting physician: Armida Ramos Consult reason: abnormal stress Chief complaint: chest pain History of present illness: Ms. Harrington is a 48 year old female with a past medical history of HTN, DM. She presented with the chief complaint of chest pain x 4 weeks. Chest pain has been intermittent 10/10 pain, occurring daily on exertion with associated radiation to both arms. Cardiac history includes normal stress and echo 2 years ago. On admission EKG NSR and troponin negative, CXR negative. Repeat EKG T wave inversion in V2-V3. Stress test demonstrated large reversible perfusion defect in anterior apical segment, Gated EF 70%. Cardiology consulted for abnormal st ress. Patient confirmed HPI and history. Positive family history for early cardiac in 1st degree relatives. Past Med Surg Social Fam HX - Past Medical History Medical history: diabetes, hypertension Additional medical history: diabetes type 2, x 2. Psychiatric history: anxiety - Past Surgical History Surgical History: hysterectomy Additional surgical history: TMJ sx. - Social History Smoking Status: Never smoker Smokeless Tobacco Status: No Alcohol use: none Drug use: none - Family History Mother Living Status: Still Living Hx Family Cardiac Disorders: Yes Hx Family Respiratory Disorders: No Hx Family Cancer: No Hx Family GI Disorders: No Hx Family Endocrine Disorder: No Hx Family Neuromuscular Disorders: No Hx Family Neurologic Disorders: No Hx Family HEENT Disorders: No Hx Family Autoimmune Disorders: No Brother Hx Family Cardiac Disorders: Yes Father Living Status: Still Living Hx Family Cardiac Disorders: Yes Hx Family Cancer: Yes (colon) Medications and Allergies ALPRAZolam [Xanax 1 MG Tablet] 1 mg PO HS PRN 05/24/18 [History] Metformin HCl 500 mg PO BID #60 tablet 05/24/18 [Rx] Aspirin 81 mg PO DAILY 08/21/18 [History] Allergy/AdvReac Type Severity Reaction Status Date / Time Penicillins [PCN] Allergy Gastrointestinal Verified 08/21/18 09:07 Upset/nausea/vomiting All Systems Review: The remainder of the systems were reviewed and are negative - Constitutional Constitutional: no chills, no fever(s) - Cardiovascular Cardiovascular: chest pain with exertion, radiating jaw, neck or arm pain, other (chest pain wakes her up at night), no dyspnea at rest, no dyspnea on exertion, no irregular heart rhythm, no palpitations, no paroxysmal nocturnal dyspnea - Respiratory Respiratory: no cough, no dyspnea - Gastrointestinal Gastrointestinal: no abdominal pain, no nausea - Genitourinary Genitourinary: no dysuria - Musculoskeletal Musculoskeletal: no myalgias - Integumentary Integumentary: no erythema, no rash - Neurological Neurological: no abnormal speech, no focal weakness, no syncope - Psychiatric Psychiatric: no anxiety (patient was diagnosed with anxiety by PCP because of chest pains but patient denies, states chest pains were cardiac) - Hematological/Lymphatic Hematologic/Lymphatic: no easy bleeding, no easy bruising Physical Examination Vital Signs, Last 4 Hours Temp Pulse Resp BP Pulse Ox 08/21/18 11:44 98.0 F 77 16 161/99 98 General: Conversant, No Apparent Distress HEENT: Atraumatic, Normocephaly Neck: No JVD, Normal carotid pulses Cardiac: Reg Rate and Rhythm, Normal S1 and S2, No Murmur Lungs: Normal Breath Sounds, No Wheeze, Rales, Rhonchi Neuro: Alert and responsive, No focal deficits noted Abdomen: Soft, Non-Tender Skin: No rashes noted on visualized skin Musculoskeletal: No Chest Wall Tenderness Extremities: No Edema, Normal Pulses Results 08/21/18 08:27 08/21/18 06:02 Lab Results 08/20/18 08/20/18 08/20/18 23:05 23:15 23:15 WBC 8.6 Hgb 14.6 Hct 43.8 Plt Count 350 INR 1.0 APTT 32.2 Sodium 139 Potassium 3.7 Chloride 103 Carbon Dioxide 29 BUN 16 Creatinine 0.81 Glucose 149 H Calcium 9.3 Troponin I < 0.03 TSH 08/21/18 08/21/18 08/21/18 06:02 08:27 08:27 WBC 6.8 Hgb 12.5 D Hct 36.8 Plt Count 299 INR APTT Sodium 139 Potassium 3.5 Chloride 104 Carbon Dioxide 23 BUN 16 Creatinine 0.73 Glucose 91 Calcium 8.4 L Troponin I < 0.03 TSH 1.239 - Imaging and Cardiology Chest Xray: report reviewed (normal) Stress Test: report reviewed (medium to large reversible perfusion defect in anterior apical segment, gated EF 70%) Cardiac cath: pending Consult Discharge Plan - Plan Referrals: NONE,PCP [Primary Care Provider] - <Choco Flores - Last Filed: 08/21/18 15:17> Date of Encounter: 08/21/18 - Attending Attestation Patient was seen and evaluated independently by me. Findings, assessment and plan were discussed at length with patient, questions answered. Agree with nurse practitioner's/resident's documentation. Addition as follows, 48 yoCF ho DM, FH premature CAD. P/w accelerating typical exertional angina 4-5 wks, now class III, lasting up to 1 hr. ECG SR, TWI V2-3. Exercise SPECT + severe cp, large apical-mid/basal anterior and apical ischemia SDS 8, stress EF>70%. CBC/BMP wnl, no bleeding diathesis, no surgery in plan. VSS, CTA, RR, no LE edema, radial and DP 2+ B/L A: Accelerating exertional angina, class III Moderate to severe anterior ischemia on SPECT, likely >10% myocardium DM P: LHC today ASA, statin Choco Flores MD, PhD Assessment and Plan Discussion w patient/family: The assessment and plan as outlined above was discussed with the patient and/or family members who expressed understanding and agreement. All questions were answered. Thank you for involving us in the care of your patient. Please call with any questions. History of Present Illness History of present illness: Ms. Harrington is a 48 year old female All Systems Review: The remainder of the systems were reviewed and are negative Physical Examination Vital Signs, Last 4 Hours Temp Pulse Resp BP Pulse Ox 08/21/18 14:39 97.8 F 95 18 176/90 95 08/21/18 11:44 98.0 F 77 16 161/99 98 Results 08/21/18 08:27 08/21/18 06:02 Lab Results 08/20/18 08/20/18 08/20/18 23:05 23:15 23:15 WBC 8.6 Hgb 14.6 Hct 43.8 Plt Count 350 INR 1.0 APTT 32.2 Sodium 139 Potassium 3.7 Chloride 103 Carbon Dioxide 29 BUN 16 Creatinine 0.81 Glucose 149 H Calcium 9.3 Troponin I < 0.03 TSH 08/21/18 08/21/18 08/21/18 06:02 08:27 08:27 WBC 6.8 Hgb 12.5 D Hct 36.8 Plt Count 299 INR APTT Sodium 139 Potassium 3.5 Chloride 104 Carbon Dioxide 23 BUN 16 Creatinine 0.73 Glucose 91 Calcium 8.4 L Troponin I < 0.03 TSH 1.239
[2018-08-21] MEDS ORDERED: *HR* Heparin 10,000 UNIT/10 ML VIAL ONE (13:47)
[2018-08-21] MEDS ORDERED: ISOVUE-370 200 ML INFUS..BTL ONE ×2 (13:47→15:50)
[2018-08-21] MEDS ORDERED: Heparin 1,000 UNITS/500 mL 500 ML ONE (13:47)
[2018-08-21] MEDS ORDERED: 0.9 % Sodium Chloride 1,000 ML ONE (13:48)
[2018-08-21] MEDS ORDERED: Nitroglycerin 1,000 MCG/10 ML VIAL IV ONE (13:50)
--- NOTE | 2018-08-21 14:05 | Pre-Sedation Evaluation ---
Pre-sedation evaluation - Pre-sedation checklist Date of procedure: 08/21/18 Procedure: [facility] Recent Vitals: Last Vital Signs Temp 98.0 F 08/21/18 11:44 Pulse 77 08/21/18 11:44 Resp 16 08/21/18 11:44 BP 161/99 08/21/18 11:44 Pulse Ox 98 08/21/18 11:44 H&P (including ROS) documented in medical record: Yes Previous reaction to sedatives/anesthetics: No Dietary Status: NPO after Midnight Airway Assessment: Patient can open mouth completely, TMJ function normal, Micrognathia (under-bite, receding chin) absent, Neck with adequate range of mot ion Dentition: No loose teeth or bridges Possible difficult airway: No ASA Classification *see protocol: CLASS II-Mild systemic disease Plan of Care: Pt appropriate candidate for procedure/moderate/conscious sedation, Risks/benefits of procedure/sedation discussed w/ patient/family Cardiac Registry (Cardio Only) - Functional Capacity Functional Capacity: >=4 METS with symptoms - Clincal Frailty Scale Clinical Frailty Scale: Managing Well
[2018-08-21] MEDS ORDERED: *HR* FentaNYL (PF) 100 MCG/2 ML VIAL ONE (14:57)
[2018-08-21] MEDS ORDERED: *HR* Midazolam HCl 2 MG/2 ML VIAL ONE ×2 (14:57→15:25)
[2018-08-21] MEDS ORDERED: *HR* Bivalirudin 250 MG VIAL IVC ONE (15:08)
[2018-08-21] MEDS ORDERED: *HR* Ticagrelor 90 MG TABLET ONE (15:54)
[2018-08-21] MEDS ORDERED: Nitroglycerin 0.4 MG TAB.SUBL SL PRN (16:15)
[2018-08-21] MEDS ORDERED: 0.9 % Sodium Chloride 1,000 ML IVC SCH (16:15)
[2018-08-21] MEDS ORDERED: Acetaminophen 325 MG TABLET PO PRN (16:15)
--- NOTE | 2018-08-21 16:33 | Invasive Diagnostic Lab Proc ---
Name: Autumn Harrington Date of Study: 08/21/2018 Date: 1970 Ht: 59.8in Medical Record#: [id number] Age: 48 Wt: 103.62lb Gender: Female BSA: 1.41 Order #: [id number] BMI: 20.34 Physicians Procedure Physician: Soraya Lozano MD, [facility] Referring MD: Referring MD: Staff Name Position Time In Thu Frazier RN Monitor 02:57 PM Elieser Hernández RN Aquatics Instructor 02:57 PM Yokasta Tompkins RT Scrub 02:58 PM Indications Indication Abnormal Test - Stress Procedures Performed Procedure L HRT ARTERY/VENTRICLE ANGIO PRQ CARD ROBERTA STENT W/ANGIO 1 VSL Pre-Procedure Checklist Informed consent is complete signed and on chart. H&P is on chart. ID band is on and ID verified with patient. Patient NPO for procedure The procedure was described for the patient and questions were answered. Blood Pressure: 161/99 ECG is on chart. Rhythm: NSR Plan of Care Patient will tolerate the procedure without complications. Adequate level of comfort will be maintained. Hemodynamics will remain stable Patient will recover from procedure without complications. Respiratory function will be maintained. Cardiac rhythm will remain stable. Patient temperature will be maintained. Patient and/or family have verbalized understanding of the procedure. Patient Education Chief Complaint/Reason for Test: Cardiac Cath Developmental Category: Adult (18-64 years) Developmentally Appropriate for Age: Yes Learning Barriers: None Education Needs: Procedure Education Method: Verbal Information Taught: Cardiac Cath Educational Evaluation: Able to repeat information Intravenous Access Time IV Size Location DC'd Fluid/Drip Rate Units RN 02:02 PM 20g 1 07/03" Patent On Arrival 0.9NaCl 25 ml/hr Elieser Hernández RN Allergies No Known Allergies Penicillins NKA Vital Signs Time BP (mmHg) HR (bpm) O2 Sat. RR (bpm) LOC 02:02 PM 161 / 99 77 98 % 16 5 = Fully awake and oriented or at pre-proc level 02:58 PM / % 5 = Fully awake and oriented or at pre-proc level 02:58 PM / % 4 = Oriented but drowsy 03:13 PM / % 4 = Oriented but drowsy 03:28 PM / % 4 = Oriented but drowsy 03:43 PM / % 4 = Oriented but drowsy 03:07 PM 183 / 102 87 98 % 13 03:11 PM 169 / 98 87 99 % 15 03:16 PM 171 / 104 78 99 % 21 03:21 PM 176 / 109 80 99 % 26 03:26 PM 175 / 107 87 98 % 27 03:31 PM 176 / 115 103 98 % 15 03:36 PM 172 / 109 109 98 % 21 03:41 PM 186 / 126 113 97 % 28 03:46 PM 179 / 101 95 93 % 19 03:51 PM 149 / 101 106 95 % 22 03:56 PM 150 / 89 89 96 % 28 Procedural Medications Time Medication Dose Units Method Given By 03:06 PM Oxygen 2 L/min nasal cannula Elieser Hernández RN 03:08 PM Versed 2 mg Intravenous Elieser Hernández RN 03:08 PM Fentanyl 50 mcg Intravenous Elieser Hernández RN 03:18 PM Benadryl 25 mg Intravenous Elieser Hernández RN 03:25 PM Versed 1 mg Intravenous Elieser Hernández RN 03:25 PM Fentanyl 25 mcg Intravenous Elieser Hernández RN 03:28 PM Lidocaine 2% 18 ml Subcutaneous Soraya Lozano MD, FACC 03:38 PM Angiomax 0.75mg/kg bolus: 7 ml Intravenous Elieser Hernández RN 03:39 PM Angiomax 1.75mg/kg/hr: 16.4 ml/hr Intravenous Elieser Hernández RN 03:39 PM Versed 1 mg Intravenous Elieser Hernández RN 03:39 PM Fentanyl 25 mcg Intravenous Elieser Hernández RN 03:49 PM Nitroglycerin 200 mcg Intracoronary Soraya Lozano MD, FACC 03:49 PM Nitroglycerin 200 mcg Intracoronary Soraya Lozano MD, FACC 03:56 PM Brilinta 180 mg Orally Elieser Hernández RN ASA Classification: CLASS II- Mild systemic disease (i.e. well-controlled diabetes, hypertension, asthma, cigarette smoking) Art Score Preprocedure Postprocedure Activity 2- Moves 4 extremities sustained head lift Activity 2- Moves 4 extremities sustained head lift Circulation 2- SBP +/= 20 points of pre-anesthetic level Circulation 2- SBP +/= 20 points of pre-anesthetic level Consciousness 2- Awake and alert oriented x 3 Consciousness 2- Awake and alert oriented x 3 O2 Saturation 2- Able to maintain O2 satruation of 92% on room air O2 Saturation 2- Able to maintain O2 satruation of 92% on room air Respiratory 2- Able to deep breathe and cough well Respiratory 2- Able to deep breathe and cough well Total Score 10 Total Score 10 Contrast Agent: Isovue Diagnostic Contrast: 164 ml Total Contrast: 164 ml Fluoro Dose: 20 mGy Procedure Log Time Note Enter By 02:57 PM 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 at 14:57 [email or web address] 02:57 PM Patient charges- Angio tray pack, Navilyst 3mm J, Pulse Oximetry and ACIST tubing and transducer [email or web address] 02:57 PM Thu Frazier RN Position: Monitor Time in: 14:57 [email or web address] 02:58 PM Elieser Hernández RN Position: Aquatics Instructor Time in: 14:57 [email or web address] 02:58 PM Yokasta Tompkins Position: Scrub Time in: 14:58 [email or web address] 02:58 PM Time: 14:58 Patient comfortable and pain free: Yes [email or web address] 02:58 PM Time: 14:58LOC: 5 = Fully awake and oriented or at pre-proc level [email or web address] 02:58 PM CathStat 03:05 PM Physician arrived 15:04 [email or web address] 03:05 PM Jakob and gay completed [email or web address] 03:05 PM Sign in performed according to hospital policy. Informed consent was obtained. [email or web address] 03:05 PM Procedure start 15:05 [email or web address] 03:05 PM Vitals capture started with the following parameters, Patient=Adult, Interval=5 min, Initial Hhrcspam=104 mmHg, Deflation Rate=3 mmHg, Cuff placed on Right Arm 03:06 PM Time: 15:06 Oxygen on at 2 L/min per nasal cannula by Elieser Hernández RN [email or web address] 03:07 PM HR=87 bpm, ANUW=210/102 mmhg, SpO2=98.0 %, Resp=13 B/min, EtCO2=25 mmHg, Comment=nsr 03:08 PM Time: 15:08 Versed 2 mg Intravenous Given by Elieser Hernández RN [email or web address] 03:08 PM Time: 15:08 Fentanyl 50 mcg Intravenous Given by Elieser Hernández RN [email or web address] 03:10 PM Case Delayed no [email or web address] 03:10 PM Hair removed from procedure site in procedure lab using clippers. Bilateral groin prepped with Chloraprep by Alejandra Gale RN, then patient was draped. Skin intact. [email or web address] 03:11 PM HR=87 bpm, VLMU=139/98 mmhg, SpO2=99.0 %, Resp=15 B/min, EtCO2=27 mmHg 03:13 PM Time: 14:58LOC: 4 = Oriented but drowsy [email or web address] 03:13 PM Time: 14:58 Patient comfortable and pain free: Yes [email or web address] 03:16 PM HR=78 bpm, WXJM=148/104 mmhg, SpO2=99.0 %, Resp=21 B/min, Comment=nsr 03:18 PM Time: 15:18 Benadryl 25 mg Intravenous Given by Elieser Hernández RN [email or web address] 03:21 PM HR=80 bpm, NZFO=352/109 mmhg, SpO2=99.0 %, Resp=26 B/min, Comment=nsr 03:25 PM ASA Class CLASS II- Mild systemic disease (i.e. well-controlled diabetes, hypertension, asthma, cigarette smoking) scoates 03:25 PM Time: 15:25 Versed 1 mg Intravenous Given by Elieser Hernández RN scoates 03:25 PM Time: 15:25 Fentanyl 25 mcg Intravenous Given by Elieser Hernández RN scoates 03:26 PM HR=87 bpm, DPEE=210/107 mmhg, SpO2=98.0 %, Resp=27 B/min, Comment=nsr 03:28 PM Time out was performed according to hospital policy. Conscious sedation and anesthesia was achieved (see medication log with in this report above) scoates 03:28 PM Time: 15:28 18 ml Lidocaine 2% to right groin Subcutaneous Given by Soraya Lozano MD, [facility] scoates 03:28 PM Access obtained by percutaneous puncture. 5Fr 10cm Terumo Richardson sheath placed in right Femoral artery. [id number] scoates 03:28 PM Time: 15:13 Patient comfortable and pain free: Yes scoates 03:28 PM Time: 15:13LOC: 4 = Oriented but drowsy scoates 03:28 PM 5Fr FL 4 catheter inserted over the wire [facility] scoates 03:30 PM Pressure channel 3 zeroed. 03:30 PM Recorded Pressure: Ao, HR=91, Condition=Condition 1 (Aorta) Ao 166/110/135 03:31 PM SM=226 bpm, FJAQ=368/115 mmhg, SpO2=98.0 %, Resp=15 B/min, Comment=nsr 03:31 PM LCA angiography performed in multiple views. scoates 03:31 PM Catheter removed scoates 03:32 PM 5Fr FR 4 catheter inserted over the wire [facility] scoates 03:32 PM RCA angiography performed in multiple views. scoates 03:32 PM Recorded Pressure: Ao, XS=744, Condition=Condition 1 (Aorta) Ao 165/119/142 03:33 PM Coronary Dominance: right scoates 03:33 PM Catheter removed scoates 03:33 PM physician reviewing films scoates 03:35 PM Recorded Pressure: LV, KE=457, Condition=Condition 1 (Left Ventricle) LV 187/-3/23 03:35 PM 5Fr Pigtail catheter inserted over the wire [facility] scoates 03:35 PM Catheter crossed the aortic valve and was selectively placed in the left ventricle. Pressures recorded on pullback for left heart catheterization. scoates 03:36 PM Bolus angiogram of left Ventricle complete: 8 ml/sec for a total of 24 mls scoates 03:36 PM Recorded Pressure: LV, Ao, BB=360, Condition=Condition 1 (Left Ventricle) LV 157/57/73, (Aorta) Ao 161/105/139 03:36 PM Catheter removed scoates 03:36 PM PCI Status Urgent scoates 03:36 PM UE=924 bpm, BFJN=838/109 mmhg, SpO2=98.0 %, Resp=21 B/min, Comment=nsr 03:36 PM Sheath exchanged for a 6 Fr 11 cm Cordis Hailey sheath [id number] scoates 03:36 PM 6Fr XB LAD 3.5 [place] Bright-Tip guide catheter was used to cannulate the PCI vessel successfully. reused? No scoates 03:37 PM Inflation device was opened. scoates 03:39 PM Time: 15:38 Angiomax 0.75mg/kg bolus: 7 ml Intravenous Given by Elieser Hernández RN Yang pump scoates 03:39 PM Time: 15:39 Angiomax 1.75mg/kg/hr: 16.4 ml/hr Intravenous Given by Elieser Hernández RN Yang pump scoates 03:39 PM Time: 15:39 Versed 1 mg Intravenous Given by Elieser Hernández RN scoates 03:39 PM Time: 15:39 Fentanyl 25 mcg Intravenous Given by Elieser Hernández RN scoates 03:39 PM Lesion found in Proximal LAD. Pre Stenosis: 99 Pre LITTLE Flow: 3: Complete and Brisk Flow/Perfusion scoates 03:40 [address] pads in place scoates 03:41 PM .014 Prowater 182cm guide wire across target lesion- successful. reused? No scoates 03:41 PM Complaint: Pain; Pain Score: 10 (1-10); Pain Location: Chest; Relief Measure: Medication,MD aware; Response: . scoates 03:41 PM FB=664 bpm, SVVZ=409/126 mmhg, SpO2=97.0 %, Resp=28 B/min, EtCO2=28 mmHg, Comment=nsr 03:41 PM Recorded Pressure: Ao, LI=659, Condition=Condition 1 (Aorta) Ao 189/119/151 03:43 PM 2.0 mm x 8 mm Emerge Monorail balloon across target lesion- successful. reused? No scoates 03:43 PM Time: 15:28LOC: 4 = Oriented but drowsy scoates 03:43 PM Balloon inflated @ 10 lex for 15 seconds scoates 03:44 PM Balloon inflated @ 10 lex for 15 seconds scoates 03:45 PM Recorded Pressure: Ao, JZ=829, Condition=Condition 1 (Aorta) Ao 169/111/138 03:46 PM Balloon catheter removed intact. scoates 03:46 PM 2.75mm x 16mm Synergy drug-eluting stent across target lesion- successful Lot #[id number] scoates 03:46 PM HR=95 bpm, BJET=570/101 mmhg, SpO2=93.0 %, Resp=19 B/min, Comment=nsr 03:47 PM Stent deployed @ 12 lex for 30 seconds scoates 03:47 PM Recorded Pressure: Ao, KQ=134, Condition=Condition 1 (Aorta) Ao 158/116/136 03:48 PM Stent delivery system removed intact. scoates 03:49 PM Time: 15:49 Nitroglycerin 200 mcg Intracoronary Given by Soraya Lozano MD, [facility] scoates 03:50 PM Time: 15:49 Nitroglycerin 200 mcg Intracoronary Given by Soraya Lozano MD, [facility] scoates 03:51 PM Stent delivery system removed intact. scoates 03:51 PM Guide wire removed intact. scoates 03:51 PM XX=344 bpm, OGMB=649/101 mmhg, SpO2=95.0 %, Resp=22 B/min, Comment=nsr 03:52 PM Guide catheter removed intact. scoates 03:53 PM Bolus angiogram of right Femoral complete: 4 ml/sec for a total of 7 mls scoates 03:54 PM Procedure completed at 15:54 08/21/2018 scoates 03:56 PM Time: 15:56 Brilinta 180 mg Orally Given by Elieser Hernández RN scoates 03:56 PM HR=89 bpm, SCGM=565/89 mmhg, SpO2=96.0 %, Resp=28 B/min 03:56 PM Did you address LITTLE flow and Dominance? Yes scoates 03:58 PM Sign out completed: Radiation Dose 195 mGy, 20 Gy/cm2 Fluoro Time: 4.6 Isovue 370 - 200ml contrast 164 ml given by Soraya Lozano MD, [facility]. Complications: None. 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 Sedation minutes 33. Cardiac Rehab Consult needed: Yes. Confirmed administered medications: Yes scoates 03:58 PM Time: 15:43LOC: 4 = Oriented but drowsy scoates 03:58 PM Isovue 370 - 200ml,2 Bottle(s) used. scoates 03:58 PM Sheath left in place to be pulled on floor/holding area scoates 03:58 PM Estimated Blood Loss: less than 20cc scoates 03:58 PM Post ECG NSR scoates 03:59 PM Post Blood Pressure 150/89 scoates 03:59 PM 15:59 Post Pulses Bilateral DP & PT 2+ scoates 03:59 PM Information taught Cardiac Cath and PCI scoates 04:00 PM pt states that she is completely chest pain free at this time scoates 04:03 PM Education needs Procedure, Plan of Care, and Responsibilities of Patient in Care scoates 04:03 PM Learning barriers :None scoates 04:03 PM Education Methods Verbal scoates 04:03 PM Education evaluation Able to repeat information scoates 04:03 PM Site status No bleeding/hematoma - Rt Groin as reported by Keisha Murray RT (R) at 16:03 scoates 04:03 PM Opsite applied scoates 04:03 PM Plavix, Effient or Brilinta given Yes scoates 04:08 PM Report given to Imani JOSHI Pt taken to 2N Room #9. 16:08 scoates 04:08 PM Delay to floor No scoates 04:08 PM Patient out of room: 16:08 scoates 04:08 PM Family placed in consult room. scoates 04:11 PM Lesion found in Proximal RCA. Pre Stenosis: 30 Pre LITTLE Flow: scoates 04:11 PM Lesion found in Mid LAD. Pre Stenosis: 25 Pre LITTLE Flow: scoates 04:11 PM Lesion found in 1st Marginal. Pre Stenosis: 40 Pre LITTLE Flow: scoates 04:12 PM Arterial sheath pulled using manual compression and V+ Pad for 15 minutes by 2N nurse when appropriate scoates Complications Complication None Hemodynamics Pressures Site Systolic/A Wave Diastolic/V Wave Mean AO 166 110 135 AO 165 119 142 LV 187 -3 23 LV 157 57 73 AO 161 105 139 AO 189 119 151 AO 169 111 138 AO 158 116 136 Post Procedure Information Blood Pressure: 150/89 mmHg Rhythm: NSR Post procedural instructions were given Closure Device Time Device Success/Fail 08/21/2018 4:11:00 PM Manual Compression - sheath to be pulled on 2n when appropriate Site Checks Time Location Status Staff Sheath In? Note 04:03 PM Rt Groin No bleeding/hematoma Keisha Murray RT (R) Pulses Time Site Pre-Procedure Post-Procedure Note 08/21/2018 2:02:00 PM Bilateral DP & PT 2+ 08/21/2018 2:02:00 PM Bilateral radial 2+ 3:59:00 PM Bilateral DP & PT 2+ Updated by Katie Sanchez, RT(R) on 08/21/2018 4:23:24 PM electronically signed on 08/21/2018 4:25:13 PM with status of Final
[2018-08-21] MEDS ORDERED: *HR* Atropine Sulfate 1 MG/10 ML SYRINGE ONE (19:49)
[2018-08-21] MEDS ORDERED: ALPRAZolam 1 MG TABLET PO ONE (21:00)
[2018-08-21] MEDS ORDERED: Haloperidol Lactate 5 MG/ML VIAL IVP ONE (22:15)
[2018-08-22] MEDS: Insulin LISPRO 300 UNITS/3 ML VIAL SQ SCH ×2 (00:05→05:48)
[2018-08-22 04:07] LABS: Cholesterol 156 mg/dL (< 200); HDL Cholesterol 39 mg/dL (40-59); LDL Cholesterol,Calculated 100 mg/dL (0-99); Triglycerides 83 mg/dL (< 150)
[2018-08-22] MEDS: *HR* Heparin 5,000 UNIT/ML VIAL SQ SCH (05:47)
[2018-08-22 08:30] LABS: BUN/Creatinine Ratio 19 (6-26); Blood Urea Nitrogen 13 mg/dL (6-20); Carbon Dioxide 24 mEq/L (23-29); Chloride 108 mEq/L (98-107); Glucose 233 mg/dL (70-105); Osmolality,Calculated 296 (280-300); Potassium 3.7 mEq/L (3.5-5.1); Sodium 139 mEq/L (136-145); eGFR For Non-African Americans > 60 (> 60)
[2018-08-22 08:32] LABS: Basophils # 0.1 K/mcL (0.0-0.2); Basophils % 0.9 %; Eosinophils # 0.2 K/mcL (0.0-0.6); Eosinophils % 3.2 %; Hematocrit 33.5 % (35.3-44.9); Hemoglobin 11.1 g/dL (11.5-15.4); Immature Granulocytes % 0.3 % (0-4); Lymphocytes # 1.7 K/mcL (0.6-4.6); Lymphocytes % 24.5 %; Mean Corpuscular HGB Conc 33.1 g/dL (31.6-35.5); Mean Corpuscular Hemoglobin 29.8 pg (28.0-33.3); Mean Corpuscular Volume 90.1 fL (83.0-100.0); Mean Platelet Volume 10.1 fL (9.4-12.4); Monocytes # 0.6 K/mcL (0.0-1.3); Monocytes % 9.1 %; Neutrophils # 4.2 K/mcL (1.6-8.9); Platelet Count 267 K/mcL (140-400); Red Blood Count 3.72 M/mcL (3.82-4.97); Red Cell Distribution Width 13.3 % (11.5-14.5)
--- NOTE | 2018-08-22 08:33 | Cardiology Progress Note ---
Date of Encounter: 08/22/18 Time of Encounter: 08:27 Assessment and Plan (1) CAD (coronary artery disease) Current Visit: Yes Status: Acute LHC yesterday for abnormal stress test. Single vessel CAD. Successful PTCA/ROBERTA to pLAD. DAPT (ASA and Brilinta) uninterrupted x 1 year. Pt verbalizes understanding. Continue Statin, BB, ACEi. Right femoral access site healing well. No bleeding, hematoma or ecchymosis noted. Restrictions discussed. TTE EF preserved. Cardiology signing off. Reconsult PRN .Will coordinate outpt follow-up in 3-4 weeks. Qualifiers: Coronary Disease-Associated Artery/Lesion type: [place] artery [place] vs. transplanted heart: [place] heart Associated angina: angina presence unspecified Qualified Code(s): I25.10 - Atherosclerotic heart disease of [place] coronary artery without angina pectoris Discussion w patient/family: The assessment and plan as outlined above was discussed with the patient and/or family members who expressed understanding and agreement. All questions were answered. Thank you for involving us in the care of your patient. Please call with any questions. I will discuss all the above with Dr. Flores and make changes as necessary. Subjective Principal diagnosis: CAD Interval history: Reports diaphoresis this AM d/t hypoglycemia. Denies chest pain or dyspnea overnight. S/P LHC yesterday with PTCA/ROBERTA to pLAD. Objective Vital Signs, Last 4 Hours Temp Pulse Resp BP Pulse Ox 08/22/18 07:42 97.8 F 82 16 134/91 98 08/22/18 07:40 98 08/22/18 07:03 87 98 Vital Signs Temp Pulse Pulse Resp BP Pulse Ox 08/22/18 07:42 97.8 F 82 16 134/91 98 08/22/18 07:40 98 08/22/18 07:03 87 98 08/22/18 04:03 98.2 F 83 15 116/72 97 08/22/18 04:00 98.2 F 81 15 116/72 98 08/22/18 01:10 87 117/69 97 08/21/18 23:57 98.8 F 86 14 111/71 97 08/21/18 22:45 70 132/81 99 08/21/18 21:57 78 132/82 97 08/21/18 21:05 92 154/87 98 08/21/18 20:43 98.0 F 75 18 151/91 98 08/21/18 20:36 86 83 144/88 08/21/18 20:20 85 85 145/91 08/21/18 20:16 81 81 157/91 08/21/18 20:10 88 88 156/93 08/21/18 20:05 88 88 168/98 08/21/18 20:00 89 89 149/93 08/21/18 19:15 80 150/89 08/21/18 18:30 82 82 148/89 08/21/18 18:00 78 78 146/96 08/21/18 17:30 75 138/86 08/21/18 17:15 78 78 142/89 08/21/18 17:00 81 81 147/90 08/21/18 16:45 79 79 145/90 08/21/18 16:38 98.1 F 96 96 16 144/86 98 08/21/18 14:39 97.8 F 95 18 176/90 95 08/21/18 11:44 98.0 F 77 16 161/99 98 Intake and Output 08/21/18 08/22/18 08/22/18 23:59 07:59 15:59 Intake Total 200 / 200 200 / 200 120 / 120 Output Total 400 / 400 700 / 700 Balance -200 / -200 -500 / -500 120 / 120 Intake: Oral 200 / 200 200 / 200 120 / 120 Output: Urine 400 / 400 700 / 700 Other: Meal NPO Percent of Meal Consumed 0% Weight 50.9 kg Blood Glucose* 199 28 157 Patient Weight 08/22/18 23:59 Weight 50.9 kg General: Conversant, No Apparent Distress HEENT: Atraumatic, Normocephaly, Mucus Membranes Moist Neck: No JVD, Normal carotid pulses Cardiac: Reg Rate and Rhythm, Normal S1 and S2, No Murmur Lungs: Normal Breath Sounds, No Wheeze, Rales, Rhonchi Neuro: Alert and responsive, No focal deficits noted Abdomen: Soft, Non-Tender Skin: Other (right femoral access site healing well. No bleeding, hematoma or ecchymosis noted.) Musculoskeletal: No Chest Wall Tenderness Extremities: No Clubbing, No Cyanosis, No Edema, Normal Pulses Results 08/21/18 08:27 08/22/18 03:24 Lab Results 08/21/18 08/21/18 08:27 08:27 WBC 6.8 Hgb 12.5 D Hct 36.8 Plt Count 299 TSH 1.239 Short CBC 08/21/18 Range/Units 08:27 WBC 6.8 (4.3-11.1) K/mcL Hgb 12.5 D (11.5-15.4) g/dL Hct 36.8 (35.3-44.9) % Plt Count 299 (140-400) K/mcL Neutrophils # 3.9 (1.6-8.9) K/mcL BMP 08/22/18 Range/Units 03:24 Sodium 139 (136-145) mEq/L Potassium 3.7 (3.5-5.1) mEq/L Chloride 108 H (98-107) mEq/L Carbon Dioxide 24 (23-29) mEq/L BUN 13 (6-20) mg/dL Creatinine 0.69 (0.60-1.20) mg/dL Glucose 233 H (70-105) mg/dL Calcium 8.0 L (8.6-10.3) mg/dL Impressions Echocardiogram 08/21/18 01:50 Impressions: LVEF 60-65%. Normal LV chamber size and function. Normal left ventricular diastolic function. Mild concentric left ventricular hypertrophy. Normal right ventricular structure and function. Unable to estimate RVSP due to lack of TR jet. No significant valvular dysfunction. Left Ventricular Wall Motion: Rest Echo Findings All wall segments showed normal motion. Findings: Study Quality * Technically adequate exam. ECG Findings * Normal sinus rhythm. Left Ventricle * LVEF 60-65%. * Normal LV chamber size and function. * Normal left ventricular diastolic function. * Mild concentric left ventricular hypertrophy. Right Ventricle * Normal right ventricular structure and function. Left Atrium * Normal left atrial size. Right Atrium * Normal right atrial size. Interatrial Septum * No evidence of PFO by color Doppler. Aortic Valve * No aortic regurgitation. * No aortic stenosis. * Aortic valve not well visualized. Mitral Valve * Normal mitral valve structure. * No mitral regurgitation. * No mitral stenosis. Tricuspid Valve * Trace tricuspid regurgitation. * No tricuspid stenosis. * Normal tricuspid valve structure. * Unable to estimate RVSP due to lack of TR jet. Pulmonic Valve * No pulmonic regurgitation. Aorta * Normally sized aortic root. Pericardium * The pericardium appears normal. IVC * Normal IVC dimensions and inspiratory collapse. Pulmonary Artery * Normal visualized portions of the main pulmonary artery. Active Medications Acetaminophen (Tylenol) 650 mg PO Q6HR PRN PRN Reason: Mild Pain Stop: 02/20/19 16:16 Last Admin: 08/21/18 20:35 Dose: 650 mg Aspirin (Aspirin) 81 mg PO DAILY [facility] Stop: 02/21/19 09:01 Last Admin: 08/22/18 07:37 Dose: 81 mg Atorvastatin Calcium (Lipitor) 80 mg PO HS [facility] Stop: 02/20/19 21:01 Last Admin: 08/21/18 20:35 Dose: 80 mg Carvedilol (Coreg) 6.25 mg PO BIDWM [facility]; Protocol Stop: 02/20/19 17:01 Last Admin: 08/22/18 07:36 Dose: 6.25 mg Dextrose (Glucose Tablets) 28 gm PO ONCE PRN PRN Reason: Hypoglycemia Stop: 02/20/19 01:53 Dextrose (Glucose Tablets) 16 gm PO ONCE PRN PRN Reason: Hypoglycemia Stop: 02/20/19 01:53 Dextrose/Water (Dextrose 50% (Syg)) 25 ml IVP AD PRN PRN Reason: Hypoglycemia Stop: 02/20/19 01:53 Last Admin: 08/22/18 07:59 Dose: 25 ml Glucagon (Glucagen) 1 mg IM ONCE PRN PRN Reason: Hypoglycemia Stop: 02/20/19 01:53 Glucose (Gluctose) 15 gm PO ONCE PRN PRN Reason: Hypoglycemia Stop: 02/20/19 01:53 Glucose (Gluctose) 30 gm PO ONCE PRN PRN Reason: Hypoglycemia Stop: 02/20/19 01:53 Heparin Sodium (Porcine) (Heparin) 5,000 unit SQ Q12HCO [facility] Stop: 02/20/19 06:01 Last Admin: 08/22/18 05:47 Dose: 5,000 unit Dextrose (Dextrose 5%) 1,000 mls @ 100 mls/hr IVC .Q10H PRN PRN Reason: HYPOGLYCEMIA Stop: 02/20/19 01:53 Insulin Human Lispro (Humalog) 0 units SQ Q6HR [facility]; Protocol Stop: 02/20/19 06:01 Last Admin: 08/22/18 05:48 Dose: 4 units Lisinopril (Zestril) 2.5 mg PO DAILY [facility]; Protocol Stop: 02/21/19 09:01 Last Admin: 08/22/18 07:37 Dose: 2.5 mg Naloxone HCl (Narcan) 0.4 mg IVP Q2M PRN PRN Reason: SEE COMMENTS Stop: 02/20/19 01:49 Nitroglycerin (Nitroglycerin) 0.4 mg SL Q5M PRN PRN Reason: Chest Pain Stop: 02/20/19 16:16 Ticagrelor (Brilinta) 90 mg PO BID [facility] Stop: 02/21/19 09:01 Last Admin: 08/22/18 07:36 Dose: 90 mg - Imaging and Cardiology Echo: report reviewed Cardiac cath: report reviewed - EKG Interpretation EKG results cardiology: other (12 hr tele AVG HR 78, SR) Consult Discharge Plan - Plan Referrals: NONE,PCP [Primary Care Provider] -
[2018-08-22] MEDS ORDERED: *HR* Ticagrelor 90 MG TABLET PO SCH (09:00)
[2018-08-22] MEDS ORDERED: Aspirin 81 MG TAB.CHEW PO SCH (09:00)
--- NOTE | 2018-08-22 09:17 | Discharge Summary ---
- NOTES TO OUTPATIENT PROVIDER Notes to Outpatient Provider: Patient discharged on aspirin, atorvastatin, Coreg, lisinopril and Brillinta. Patient to follow-up cardiology in 3-4 weeks Orders not resulted at time of discharge: Pending orders 08/21/18 01:51 NM kristy perf SPECT multi [NM] Routine 08/21/18 16:15 ECG 12 lead ECG [ECG] Stat 08/22/18 06:00 ECG 12 lead ECG [ECG] AM 0600 Date of Encounter: 08/22/18 Time of Encounter: 09:14 - Discharge Diagnosis (1) Chest pain Priority: Primary Status: Acute Qualifiers: Chest pain type: chest pain due to myocardial ischemia Ischemic chest pain type: stable angina pectoris Qualified Code(s): I20.8 - Other forms of angina pectoris (2) Diabetes mellitus Priority: Secondary Status: Chronic Qualifiers: Diabetes mellitus type: type 2 Diabetes mellitus shelter insulin use: without shelter use Diabetes mellitus complication status: without complication Qualified Code(s): E11.9 - Type 2 diabetes mellitus without complications (3) Anxiety Priority: Secondary Status: Chronic (4) Hypertension Priority: Secondary Status: Chronic Qualifiers: Hypertension type: unspecified Qualified Code(s): I10 - Essential (primary) hypertension (5) CAD (coronary artery disease) Priority: Primary Status: Acute Qualifiers: Coronary Disease-Associated Artery/Lesion type: [place] artery [place] vs. transplanted heart: [place] heart Associated angina: angina presence unspecified Qualified Code(s): I25.10 - Atherosclerotic heart disease of [place] coronary artery without angina pectoris Hospital course: Ms. Harrington is a 48 year old female with past medical history of hypertension, diabetes and anxiety who came in with chest pain. Initial set of troponins were negative. Chest x-ray was unremarkable Patient had a stress test done which was positive for ischemia. Cardiology was consulted. Patient underwent LHC which showed single-vessel disease and had PTCA/ROBERTA to pLAD. Patient's echocardiogram with preserved ejection fraction of 60-65%, mild LVH, normal segmental wall motion. Patient was started on aspirin and Brillinta which is to be continued for 1 year uninterrupted. Patient to also continue atorvastatin, Coreg and lisinopril. Patient is stable to be discharged home. All prescriptions were provided to the patient. Patient to follow-up with cardiology in 2-4 weeks. Discharge discussed with: patient, nurse - Time Spent with Patient Total time spent providing and/or coordinating discharge services: Greater than 30 minutes - Discharge Medications Prescriptions: New Atorvastatin [Lipitor] 80 mg PO HS 30 Days #30 tablet Carvedilol [Coreg] 6.25 mg PO BIDWM 30 Days #60 tablet Lisinopril [Zestril] 2.5 mg PO DAILY 30 Days #30 tablet Nitroglycerin 0.4 mg SL Q5M PRN 30 Days #15 tab.subl PRN Reason: Chest Pain Ticagrelor [Brilinta] 90 mg PO BID 30 Days #60 tablet Continue ALPRAZolam [Xanax 1 MG Tablet] 1 mg PO HS PRN PRN Reason: Anxiety Metformin HCl 500 mg PO BID #60 tablet Aspirin 81 mg PO DAILY Home Medications: ALPRAZolam [Xanax 1 MG Tablet] 1 mg PO HS PRN 05/24/18 [History] Metformin HCl 500 mg PO BID #60 tablet 05/24/18 [Rx] Aspirin 81 mg PO DAILY 08/21/18 [History] Atorvastatin [Lipitor] 80 mg PO HS 30 Days #30 tablet 08/22/18 [Rx] Carvedilol [Coreg] 6.25 mg PO BIDWM 30 Days #60 tablet 08/22/18 [Rx] Lisinopril [Zestril] 2.5 mg PO DAILY 30 Days #30 tablet 08/22/18 [Rx] Nitroglycerin 0.4 mg SL Q5M PRN 30 Days #15 tab.subl 08/22/18 [Rx] Ticagrelor [Brilinta] 90 mg PO BID 30 Days #60 tablet 08/22/18 [Rx] Allergies/Adverse Reactions: Allergy/AdvReac Type Severity Reaction Status Date / Time Penicillins [PCN] Allergy Gastrointestinal Verified 08/21/18 09:07 Upset/nausea/vomiting Date of admission: 08/21/18 13:04 Primary care physician: PCP NONE Consults: 08/21/18 12:58 Consult to Cardiology [CONS] Routine Comment: Consulting Provider: Cardiology Tiffany Reason for Consult: abnormal stress test Call Completed: Yes 08/21/18 16:15 Consult to Cardiac Rehabilitation-Phase1 [CONS] Routine Comment: Reason for Consult: post op PCI Call Completed: Yes Discharging clinician: Salvador Antonio - Constitutional Vitals: Temp Pulse Resp BP Pulse Ox 97.8 F 82 16 134/91 98 08/22/18 07:42 08/22/18 07:42 08/22/18 07:42 08/22/18 07:42 08/22/18 07:42 Exam: General: In no acute distress. Conversant. Respiratory exam: CTAB. no accessory muscle use, rales, rhonchi, wheezes Cardiovascular exam: RRR, +S1, +S2. no murmur, gallop, rubs. GI/Abdominal exam: Non-tender, Non-distended, normal bowel sounds, soft, no peritoneal signs. Extremities exam: full ROM, no pedal edema, warm, pulses palpable in b/l lower extremities. no calf tenderness. Rt femoral site without hematoma or ecchymosis Neurological exam: CN II-XII intact, AO X3, no focal deficits. no pronater drift, facial droop, speech deficit Skin exam: No skin rash, ulcer, purpura or ecchymosis. - Patient Status Disposition: Home, Self-Care Condition: Undetermined - Discharge Instructions Instructions: Diabetes Mellitus Type 2 in Adults (GEN) Follow Up With: Neftaly Green, WET PROCESS TECHNICIAN [Advanced Practice Nurse] - NONE,PCP [Primary Care Provider] - Additional Instructions: RISK FACTORS: STOP SMOKING: If you smoke, STOP. Smoking or tobacco use significantly increases your risk of heart disease because nicotine causes the arteries to narrow or constrict. It also causes fats to stick to the artery. Your chances of having a heart attack are greatly increased if you continue to smoke. For more information, call the education line for smoking cessation 0-335-DDFSJBZ EAT A LOW FAT/CHOLESTEROL/SODIUM DIET: This diet may help reduce your chances of having a heart attack. LIFTING: Avoid lifting anything more than 10 pounds for 5-7 days Prior to straining, laughing, sneezing and/or coughing, apply manual pressure directly over insertion site. ACTIVITY: You may walk or climb stairs as tolerated You can resume sexual activity as tolerated In general, you are encouraged to engage in a minimum of 30 minutes or more of moderate intensity physical activity, such as brisk walking, daily or at least 3-4 times weekly BATHING Do not submerge the site into water (bath tub, hot tub, swimming pool) for 1 week. This can be a source for infection into the blood stream. You may shower after 24 hours SITE CARE: After 24 hours, you may remove the dressing and leave the site open to air. Keep the site clean and dry. Clean gently and pat dry. You can expect bruising and tenderness that gradually resolve within a week or two. Return to work as instructed per your physician Resume driving as instructed per physician Keep all scheduled follow up appointments Resume medications as instructed IMPORTANT: If prescribed a Platelet Aggregation Inhibitor such as, Plavix, Brilinta or Effient: Duration of therapy is minimum one year These medications are often used in combination with Aspirin in prevention of future heart attacks Never discontinue unless consult with your Retrofit Installer STROKE (CVA) Risk factors for a stroke are: Age, cigarette smoking, diabetes, excessive alcohol consumption, family history, high blood pressure, overweight, physical inactivity, prior stroke, heart attack, diagnosis of carotid artery stenosis or other artery disease. Warning signs: Sudden numbness or weakness of the face, arm or leg; especially on one side of the body, sudden confusion, trouble speaking or understanding, sudden trouble seeing in one or both eyes, sudden trouble walking, dizziness, loss of balance or coordination, sudden severe headache with no cause. Call 911 or go to the Emergency Room. CONGESTIVE HEART FAILURE: If you have been diagnosed with Congestive Heart Failure (CHF) and your symptoms return, make an appointment with your physician Weigh yourself daily. Notify your physician if you have a weight gain of two or more pounds in one day or five or more pounds in one week. If you experience any difficulty breathing, please call 911 BLEEDING: Although the risk of bleeding is minimal, it can happen. If you have any bleeding from the site, apply firm pressure above the puncture site for 10-15 minutes. If the bleeding does not stop, continue manual pressure and call 911 Contact your physician if: You develop a fever greater than 101 degrees Fahrenheit Your site becomes reddened or has any drainage You have an increase in pain or burning at the site or if a large knot forms at the site. If you experience chest pain, shortness of breath, dizziness, or extreme tiredness, stop the activity and rest. Please notify your physicians office if you experience any of these symptoms and they are not relieved by rest please call 911! - Diet and Activity Diet: diabetic diet
[2018-08-22 11:29] VITALS: BP 145/85
--- NOTE | 2018-08-22 20:34 | Electrocardiograph Report ---
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
--- NOTE | 2018-08-22 20:57 | Electrocardiograph Report ---
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
== END 2018-08-22 12:15 | disposition home or self-care (01) | DRG 175 ==
LOC: EMEROOARM 22:59 → 3BNU 22:59 → SUATTDRO 08-21 13:04 → 2NNU 08-21 16:11
PROVIDERS: ADMIT Pediatrics; ATTEND Internal Medicine

== ENCOUNTER 2019-02-09 17:16 | Inpatient (IN) ==
[2019-02-09] MEDS ORDERED: 0.9 % Sodium Chloride 1,000 ML IVC ONE ×3 (18:32→22:57)
--- NOTE | 2019-02-09 18:32 | Emergency Department Note ---
Disposition Clinical Impression: Pyelonephritis Disposition: Admitted As Inpatient Condition: Fair Time of Disposition: 21:02 General Adult HPI - General Chief complaint: ED Abdominal Pain Stated complaint: Low BP Time Seen by Provider: 02/09/19 18:00 Source: patient Mode of arrival: ambulatory Nursing Notes Reviewed: Yes Vital Signs Reviewed: Yes - History of Present Illness HPI Narrative: Patient is a 48-year-old female with a past medical history of CAD with stent placement in 2019, as well as bilateral renal stones currently seeing Dr. Guillen presents the ED for evaluation of worsening right-sided flank pain as well as blood and urine and fever. She was seen at her primary care physician's office prior to arrival and he noted a blood pressure with a systolic in the 80s given his concerns she was sent to the ER for evaluation. She states she has plans to see Dr. Guillen next week for removal of one of her kidney stones. Pain Scale: 5 - Related Data Home Medications Medication Instructions Recorded Confirmed ALPRAZolam [Xanax 1 MG Tablet] 1 mg PO HS PRN 05/24/18 02/10/19 Aspirin 81 mg PO DAILY 08/21/18 02/10/19 Atorvastatin Calcium [Lipitor] 80 mg PO HS 09/24/18 02/10/19 Carvedilol [Coreg] 6.25 mg PO BID 09/24/18 02/10/19 Lisinopril 5 mg PO DAILY 09/24/18 02/10/19 Nitroglycerin [Nitrostat] 0.4 mg SL PRN PRN 09/24/18 02/10/19 Ticagrelor [Brilinta] 90 mg PO BID 09/24/18 02/10/19 OxyCODONE/APAP 5/325 [Percocet 1 each PO Q12H PRN 02/10/19 02/10/19 5/325 MG] Previous Rx's Medication Instructions Recorded Metformin HCl 500 mg PO BID #60 tablet 05/24/18 Allergies Allergy/AdvReac Type Severity Reaction Status Date / Time Penicillins [PCN] Allergy Gastrointestinal Verified 02/10/19 08:45 Upset/nausea/vomiting All systems ED: reviewed and negative except as stated. Review of Systems: As Per HPI Constitutional: Reports: fever, chills Cardiovascular: Denies: chest pain, palpitations, dyspnea on exertion Respiratory: Denies: cough, dyspnea Gastrointestinal: Reports: abdominal pain, nausea, vomiting. Denies: diarrhea, constipation, hematemesis, melena Genitourinary: Reports: hematuria. Denies: urgency, dysuria, frequency, discharge, abnormal menses Musculoskeletal: Denies: back pain, neck pain Integumentary: Denies: rash Past Medical History - Past Medical History Attestation: Yes The following information was validated with the patient. 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 Temp of 101.8 on my evaluation and tachycardic. HEAD: Normocephalic; atraumatic. EYES: PERRL, no scleral icterus. NOSE: The nose is normal in appearance without rhinorrhea RESP: Normal chest excursion with respiration; breath sounds clear and equal bilaterally; no wheezes, rhonchi, or rales CARD: Regular rhythm, without murmurs, rub or gallop ABD: Non-distended; non-tender, soft,without rigidity, rebound or guarding BACK: Right CVA tenderness. SKIN: Normal for age and race; warm and dry; no apparent lesions - General General appearance: alert, in no apparent distress Course Course Narrative: Inner sepsis evaluation she is found have a leukocytosis as well as DESHAWN and a lactic acid of 3.0. Her urine was positive for infection. Initially chest x- ray was ordered she did have a cough that started today however my evaluation it appears negative for pneumonia at this time. She is given 2 L of fluid total. She had improvement of her tachycardia. She is also given a dose of Tylenol for fever. She is treated her pain with Dilaudid. I discussed her case with Dr. Guillen urologist on-call and he agrees to see her in the mornings I placed a consult ordered. She will be admitted to hospital for further management and started on Rocephin antibiotic Vital Signs Temperature 99.1 F 02/09/19 17:18 Pulse Rate 84 02/09/19 17:18 Respiratory Rate 16 02/09/19 17:18 Blood Pressure 107/59 02/09/19 17:18 O2 Sat by Pulse Oximetry 98 02/09/19 17:18 Temperature 99.3 F 02/09/19 21:40 Pulse Rate 97 02/09/19 21:40 Respiratory Rate 16 02/09/19 18:01 Blood Pressure 105/62 02/09/19 21:40 O2 Sat by Pulse Oximetry 98 02/09/19 21:40 Oxygen Delivery Oxygen Delivery Room Air Medical Decision Making - Medical Records Medical records reviewed: Yes I reviewed the patient's medical records. - Lab Data Lab results reviewed: Yes I reviewed the patient's lab results. Result diagrams: 02/10/19 03:32 02/10/19 03:32 Lab Results 02/09/19 02/09/19 02/09/19 Range/Units 18:30 18:30 18:30 WBC 15.6 H D (4.3-11.1) K/mcL RBC 3.88 (3.82-4.97) M/mcL Hgb 11.9 (11.5-15.4) g/dL Hct 36.2 (35.3-44.9) % MCV 93.3 (83.0-100.0) fL MCH 30.7 (28.0-33.3) pg MCHC 32.9 (31.6-35.5) g/dL RDW 13.4 (11.5-14.5) % Plt Count 236 (140-400) K/mcL MPV 9.8 (9.4-12.4) fL Immature Gran % 0.4 (0-4) % Seg Neutrophils % 84.5 % Lymphocytes % 5.2 % Monocytes % 9.8 % Eosinophils % 0.0 % Basophils % 0.1 % Neutrophils # 13.2 H (1.6-8.9) K/mcL Lymphocytes # 0.8 (0.6-4.6) K/mcL Monocytes # 1.5 H (0.0-1.3) K/mcL Eosinophils # 0.0 (0.0-0.6) K/mcL Basophils # 0.0 (0.0-0.2) K/mcL Sodium 134 L (136-145) mEq/L Potassium 4.1 (3.5-5.1) mEq/L Chloride 100 (98-107) mEq/L Carbon Dioxide 24 (23-29) mEq/L BUN 24 H (6-20) mg/dL Creatinine 1.51 H (0.60-1.20) mg/dL Est GFR ( Amer) 45 L (> 60) Est GFR (Non-Af Amer) 37 L (> 60) BUN/Creatinine Ratio 16 (6-26) Glucose 152 H (70-105) mg/dL Calculated Osmolality 285 (280-300) Lactic Acid 3.0 H (0.5-2.2) mmol/L Calcium 8.9 (8.6-10.3) mg/dL Urine Color (Yellow) Urine Clarity (Clear) Urine pH (5.0-8.0) pH Units Ur Specific [place] (1.010-1.025) Urine Protein (Neg-Trace) mg/dL Urine Glucose (UA) (Normal) mg/dL Urine Ketones (Negative) mg/dL Urine Blood (Negative) Urine Nitrite (Negative) Urine Bilirubin (Negative) Urine Urobilinogen (Normal) mg/dL Ur Leukocyte Esterase (Negative) Urine Microscopic RBC (0-3) per hpf Urine Microscopic WBC (0-3) per hpf Ur Squamous Epith Cells (None-Few) per lpf Urine Bacteria (None-Few) per hpf Hyaline Casts (None-Few) per lpf Ur Culture Indicated? (NO) 02/09/19 Range/Units 19:26 WBC (4.3-11.1) K/mcL RBC (3.82-4.97) M/mcL Hgb (11.5-15.4) g/dL Hct (35.3-44.9) % MCV (83.0-100.0) fL MCH (28.0-33.3) pg MCHC (31.6-35.5) g/dL RDW (11.5-14.5) % Plt Count (140-400) K/mcL MPV (9.4-12.4) fL Immature Gran % (0-4) % Seg Neutrophils % % Lymphocytes % % Monocytes % % Eosinophils % % Basophils % % Neutrophils # (1.6-8.9) K/mcL Lymphocytes # (0.6-4.6) K/mcL Monocytes # (0.0-1.3) K/mcL Eosinophils # (0.0-0.6) K/mcL Basophils # (0.0-0.2) K/mcL Sodium (136-145) mEq/L Potassium (3.5-5.1) mEq/L Chloride (98-107) mEq/L Carbon Dioxide (23-29) mEq/L BUN (6-20) mg/dL Creatinine (0.60-1.20) mg/dL Est GFR ( Amer) (> 60) Est GFR (Non-Af Amer) (> 60) BUN/Creatinine Ratio (6-26) Glucose (70-105) mg/dL Calculated Osmolality (280-300) Lactic Acid (0.5-2.2) mmol/L Calcium (8.6-10.3) mg/dL Urine Color Dark Yellow (Yellow) Urine Clarity Turbid A (Clear) Urine pH 5.5 (5.0-8.0) pH Units Ur Specific [place] 1.021 (1.010-1.025) Urine Protein >=300 H (Neg-Trace) mg/dL Urine Glucose (UA) Normal (Normal) mg/dL Urine Ketones Negative (Negative) mg/dL Urine Blood Large H (Negative) Urine Nitrite Positive A (Negative) Urine Bilirubin Small H (Negative) Urine Urobilinogen Normal (Normal) mg/dL Ur Leukocyte Esterase Moderate H (Negative) Urine Microscopic RBC TNTC H (0-3) per hpf Urine Microscopic WBC TNTC H (0-3) per hpf Ur Squamous Epith Cells Many H (None-Few) per lpf Urine Bacteria Many H (None-Few) per hpf Hyaline Casts None Seen (None-Few) per lpf Ur Culture Indicated? YES A (NO) - Radiology Data Radiology results reviewed: Yes I reviewed the patient's radiology results. Vital Signs Temp Pulse Resp BP Pulse Ox 02/09/19 19:44 101.8 F H 108 115/67 100 02/09/19 18:14 98 02/09/19 18:01 99.1 F 84 16 107/59 98 02/09/19 17:18 99.1 F 84 16 107/59 98 Intake and Output 02/09/19 02/09/19 02/09/19 07:59 15:59 23:59 Intake Total 2009 Balance 2009 Intake: IV Fluids 2009 0.9 % Sodium Chloride 1,000 ML 1999 / 1999 @ 999 mls/hr IVC .Q1H1M ONE Rx# :[id number] Rocephin 1,000 MG In Water for inj. (sterile) 10 ML @ 600 mls/ hr IVP ONCE ONE Rx#:[id number] Other: Weight 42.184 kg Patient Weight 02/09/19 23:59 Weight 42.184 kg Abdomen/Pelvis CT 02/09/19 18:20 IMPRESSION: Bilateral nephrolithiasis with a fairly large stone on each side, larger on the right. These have increased in size. The right-sided stone is in the central renal pelvis. However no hydronephrosis or other obstructive change of either kidney and no ureteral stone. D/ / Manny Durand MD / Manny Durand MD Interpreting Provider: Manny Durand MD Attestation Statement - Attestation Attestation: I, Harjinder Lopez, examined this patient and my medical decision-making was reviewed with the TECHNICAL SUPPORT TECHNICIAN/PA/Advanced Practice Nurse/Resident Physician. I agree with the documented findings, disposition and treatment plan as described except to the extent set forth below. 48-year-old female presents emergency Department with concerns of abdominal pain and pain in the bilateral low back. Patient reports a history of bilateral nephrolithiasis 4 months ago. She is scheduled for procedure to be performed with urologist within the next 2 weeks. Today the patient reports having fever, rigor, and had a low blood pressure at the primary care provider's office prior to arrival. Patient was hypotensive upon arrival. This improved with IV fluids. Patient was started on antibiotics in the emergency department. Patient is awake alert and answered questions appropriate. She will be admitted to hospitalist for further care and evaluation.
[2019-02-09 19:08] LABS: Basophils % 0.1 %; Hematocrit 36.2 % (35.3-44.9); Hemoglobin 11.9 g/dL (11.5-15.4); Immature Granulocytes % 0.4 % (0-4); Lymphocytes # 0.8 K/mcL (0.6-4.6); Lymphocytes % 5.2 %; Mean Corpuscular HGB Conc 32.9 g/dL (31.6-35.5); Mean Corpuscular Hemoglobin 30.7 pg (28.0-33.3); Mean Corpuscular Volume 93.3 fL (83.0-100.0); Mean Platelet Volume 9.8 fL (9.4-12.4); Monocytes # 1.5 K/mcL (0.0-1.3); Monocytes % 9.8 %; Platelet Count 236 K/mcL (140-400); Red Blood Count 3.88 M/mcL (3.82-4.97); Red Cell Distribution Width 13.4 % (11.5-14.5); Segmented Neutrophils % 84.5 %
[2019-02-09 19:16] LABS: Neutrophils # 13.2 K/mcL (1.6-8.9); White Blood Count 15.6 K/mcL (4.3-11.1)
[2019-02-09 19:18] LABS: Calcium 8.9 mg/dL (8.6-10.3); Potassium 4.1 mEq/L (3.5-5.1)
[2019-02-09] MEDS ORDERED: cefTRIAXone 1,000 MG in Water for inj. (sterile) 10 ML IVP ONE (19:32)
[2019-02-09 19:47] LABS: Bilirubin,Urine Small (Negative); Blood,Urine Large (Negative); Clarity,Urine Turbid (Clear); Color,Urine Dark Yellow (Yellow); Glucose,Urine (UA) Normal (Normal); Ketones,Urine Negative (Negative); Leukocyte Esterase,Urine Moderate (Negative); Nitrite,Urine Positive (Negative); PH,Urine 5.5 pH Units (5.0-8.0); Protein,Urine >=300 mg/dL (Neg-Trace); Specific Gravity,Urine 1.021 (1.010-1.025); Urobilinogen,Urine Normal (Normal)
[2019-02-09 19:48] LABS: Bacteria,Urine Many per hpf (None-Few); Hyaline Casts,Urine None Seen per lpf (None-Few); Squamous Epithelial Cell,Urine Many per lpf (None-Few); WBC,Urine TNTC per hpf (0-3)
[2019-02-09] MEDS ORDERED: *HR* HYDROmorphone (PF) 1 MG/ML SYRINGE IVP ONE (19:56)
[2019-02-09 19:58] LABS: RBC,Urine TNTC per hpf (0-3)
[2019-02-09] MEDS ORDERED: Naloxone 0.4 MG/ML INJ IVP PRN (22:45)
[2019-02-09] MEDS ORDERED: Ondansetron 4 MG/2 ML VIAL IVP PRN (22:45)
--- NOTE | 2019-02-09 22:57 | Internal Med History&Physical ---
<Jose Matos - Last Filed: 02/10/19 04:25> Date of Encounter: 02/10/19 Time of Encounter: 01:00 Internal Medicine - H&P: HPI History of present illness: Ms. Harrington is a 48-year-old female with a PMH of CAD S/P stent placement 2019, b/l renal stones, DM, HLD, HTN, and anxiety who presented to [facility] ED on 02/09/19 with chief complaint of worsening R-sided flank pain, hematuria, and fever. Was seen by PCP prior to arrival; was noted to have a BP in the 80s; was sent to the ER as a result of this. Had an appointment to see Dr. Guillen next week for removal of one of her kidney stones. Upon arrival, vital signs were significant for a BP of 107/59, temperature 99.1. All other vital signs were WNL. Labs demonstrated elevated WBCs of 15.6 with L shift, low Na+ at 134, Cr 1.51, glucose 152, and lactate 3.0. UA demonstrated the presence of turbid urine with a large amount of blood, (+) nitrates, moderate amount of leukocyte esterase, TNTC RBCs and WBCs, and many urine bacte beatrice. Urine CX was obtained. CT abd/pelv demonstrated b/l nephrolithiasis with a fairly large stone in each side, larger on the R. Stones with increased in size compared to prior study. R stone is in central renal pelvis. No hydronephrosis or obstructive changes seen. No stones visualized in the ureters. Patient was given 2 L of fluid in the emergency department. Tachycardia improved. She was given Tylenol for her temperature. Also was given Dilaudid for pain control. Urologist Dr. Guillen was consulted from the ED. Blood cultures 2 were ordered. She was also given a one-time dose of Rocephin in the ED. During my assessment, patient states that she is feeling better than when she did prior to arrival. She still reports some flank pain, but overall states that this has improved. Our plan is to continue IV Rocephin 1 g daily. We will continue IV fluid hydration with normal saline at 125 mL per hour for her acute kidney injury. Both metformin and lisinopril are being held in the setting of DESHAWN. She will be seen tomorrow by urology. Medical Hx: CAD s/p 1 stent in July (on ASA and Brilinta), DM, HLD, HTN, IA Social Hx: Never smoker, never drinker, no illicit drugs Family Hx: CAD Past Med Surg Social Fam HX - Past Medical History Medical history: coronary artery disease, diabetes, hyperlipidemia, hypertension, kidney stones, myocardial infarction Additional medical history: diabetes type 2, x 2. Psychiatric history: anxiety - Past Surgical History Surgical History: angioplasty/stent Additional surgical history: TMJ sx. heart cath - Social History Smoking Status: Never smoker Smokeless Tobacco Status: No Alcohol use: rarely Drug use: none - Family History Mother Living Status: Still Living Hx Family Cardiac Disorders: Yes Hx Family Respiratory Disorders: No Hx Family Cancer: No Hx Family GI Disorders: No Hx Family Endocrine Disorder: No Hx Family Neuromuscular Disorders: No Hx Family Neurologic Disorders: No Hx Family HEENT Disorders: No Hx Family Autoimmune Disorders: No Brother Hx Family Cardiac Disorders: Yes Father Living Status: Still Living Hx Family Cardiac Disorders: Yes Hx Family Cancer: Yes (colon) Internal Medicine - H&P: Meds ALPRAZolam [Xanax 1 MG Tablet] 1 mg PO HS PRN 05/24/18 [History] Metformin HCl 500 mg PO BID #60 tablet 05/24/18 [Rx] Aspirin 81 mg PO DAILY 08/21/18 [History] Atorvastatin Calcium [Lipitor] 80 mg PO HS 09/24/18 [History] Carvedilol [Coreg] 6.25 mg PO BID 09/24/18 [History] Lisinopril 5 mg PO DAILY 09/24/18 [History] Nitroglycerin [Nitrostat] 0.4 mg SL PRN PRN 09/24/18 [History] Ticagrelor [Brilinta] 90 mg PO BID 09/24/18 [History] OxyCODONE/APAP 5/325 [Percocet 5/325 MG] 1 each PO Q12H PRN 02/10/19 [History] Allergy/AdvReac Type Severity Reaction Status Date / Time Penicillins [PCN] Allergy Gastrointestinal Verified 02/10/19 08:45 Upset/nausea/vomiting All Systems PM: A 10-system review of systems was performed and is negative for pertinent findings except as documented above in the HPI. - Constitutional Constitutional: no chills, no fever(s), no night sweats - Cardiovascular Cardiovascular ROS IM: no chest pain, no dyspnea, no palpitations - Gastrointestinal Gastrointestinal: no abdominal pain, no diarrhea, no melena, no nausea, no vomiting - Genitourinary Genitourinary: flank pain, no dysuria - Constitutional Vitals: Temp Pulse Resp BP Pulse Ox 99.0 F 90 15 94/56 97 02/09/19 22:26 02/09/19 22:26 02/09/19 22:26 02/09/19 22:26 02/09/19 22:26 Exam: General: A&O X3, conversant, no acute distress Head: atraumatic, normocephalic Eye: PERRL, EOMI, conjuntiva pink, sclera anicteric Neck: Supple, trachea midline; No lymphadenopathy Respiratory: CTAB. No accessory muscle use, wheezes, rales, or rhonchi Cardiovascular: Tachycardic, +S1, +S2; no murmurs, rubs, gallops Abdomen: Soft, nontender; flank tenderness on the right Extremities: warm, radial pulses palpable and symmetrical Neurological: no focal deficits Psychiatric: Normal affect, normal mood Skin: Dry, intact Internal Med - H&P Results - Labs CBC & Chem 7: 02/10/19 03:32 02/09/19 18:30 Labs: Short CBC 02/09/19 Range/Units 18:30 WBC 15.6 H D (4.3-11.1) K/mcL Hgb 11.9 (11.5-15.4) g/dL Hct 36.2 (35.3-44.9) % Plt Count 236 (140-400) K/mcL Neutrophils # 13.2 H (1.6-8.9) K/mcL BMP 02/09/19 18:30 Sodium 134 L Potassium 4.1 Chloride 100 Carbon Dioxide 24 BUN 24 H Creatinine 1.51 H Glucose 152 H Calcium 8.9 Urine 02/09/19 Range/Units 19:26 Urine Color Dark Yellow (Yellow) Urine Clarity Turbid A (Clear) Urine pH 5.5 (5.0-8.0) pH Units Ur Specific [place] 1.021 (1.010-1.025) Urine Protein >=300 H (Neg-Trace) mg/dL Urine Glucose (UA) Normal (Normal) mg/dL - Impressions ITS Impressions Abdomen/Pelvis CT 02/09/19 18:20 IMPRESSION: Bilateral nephrolithiasis with a fairly large stone on each side, larger on the right. These have increased in size. The right-sided stone is in the central renal pelvis. However no hydronephrosis or other obstructive change of either kidney and no ureteral stone. D/ / Manny Durand MD / Manny Durand MD Interpreting Provider: Manny Durand MD Chest X-Ray 02/09/19 19:55 IMPRESSION: No acute process. D/ / Dom Rangel MD / Dom Rangel MD Interpreting Provider: Dom Rangel MD - Assessment and Plan (1) Sepsis Current Visit: Yes Status: Acute Assessment and plan: Assessment - Patient meets 3/4 SIRS criteria: Fever, tachycardia, leukocytosis - Causative organism is unknown at this time; infection source is likely UTI - UA: large amount of blood, (+) nitrites, moderate amount of leukocyte esterase, TNTC RBCs and WBCs, and many urine bacteria - Patient was given a one-time dose of ceftriaxone in the ED Plan - Rocephin IV 1g daily - Blood and urine CX are ordered and currently pending; tailor antibiotic therapy accordingly - Continue IV hydration with normal saline - Repeat lactate and CBC, BMP with a.m. labs Qualifiers: Qualified Code(s): A41.9 - Sepsis, unspecified organism; R65.20 - Severe sepsis without septic shock (2) DESHAWN (acute kidney injury) Current Visit: Yes Status: Acute Assessment and plan: Assessment - Creatinine was found to be elevated at 1.51 - Creatinine is normal at baseline - Likely prerenal in etiology secondary to hypotension - CT scan showed nephrolithiasis, but no evidence of hydronephrosis or obstruction Plan - Continue hydration with IV fluids - Urology has been consulted for stone removal - Holding home metformin and lisinopril (3) Nephrolithiasis Current Visit: Yes Status: Acute Assessment and plan: As demonstrated on CT scan: - b/l nephrolithiasis with fairly large stone on each side, larger on the right; increased in size - The right-sided stone is in the central renal pelvis - However no hydronephrosis or other obstructive change of either kidney and no ureteral stone (4) UTI (urinary tract infection) Current Visit: Yes Status: Acute Assessment and plan: - As demonstrated on urinalysis - Continue treatment with IV Rocephin daily as documented above Qualifiers: Qualified Code(s): N39.0 - Urinary tract infection, site not specified (5) Diabetes Current Visit: Yes Status: Acute Assessment and plan: - Sliding scale insulin - Hold home metformin Qualifiers: Qualified Code(s): E11.9 - Type 2 diabetes mellitus without complications (6) CAD (coronary artery disease) Current Visit: Yes Status: Acute Assessment and plan: - Resume patients home ASA and Brilinta Qualifiers: Qualified Code(s): I25.10 - Atherosclerotic heart disease of [place] coronary artery without angina pectoris (7) HTN (hypertension) Current Visit: Yes Status: Acute Assessment and plan: - Holding home antihypertensives in the setting of hypotension Qualifiers: Qualified Code(s): I10 - Essential (primary) hypertension (8) DVT prophylaxis Current Visit: Yes Status: Acute Assessment and plan: - SQ Heparin - Time Spent With Patient Total time spent is greater than 50% in coordination of care (as documented) at patient's floor/unit and/or counseling patient: <Diana Feng Z - Last Filed: 02/11/19 07:26> Date of Encounter: 02/09/19 Internal Medicine - H&P: HPI History of present illness: Ms. Harrington is a 48 year old female All Systems PM: A 10-system review of systems was performed and is negative for pertinent findings except as documented above in the HPI. - Constitutional Vitals: Temp Pulse Resp BP Pulse Ox 97.5 F L 65 15 111/64 97 02/11/19 07:11 02/11/19 07:11 02/11/19 07:11 02/11/19 07:11 02/11/19 07:11 Internal Med - H&P Results - Labs CBC & Chem 7: 02/11/19 03:30 02/11/19 03:30 Labs: Short CBC 02/11/19 Range/Units 03:30 WBC 6.7 (4.3-11.1) K/mcL Hgb 9.9 L (11.5-15.4) g/dL Hct 30.2 L (35.3-44.9) % Plt Count 174 (140-400) K/mcL Neutrophils # 6.2 (1.6-8.9) K/mcL BMP 02/11/19 03:30 Sodium 131 L Potassium 4.6 Chloride 103 Carbon Dioxide 18 L BUN 26 H Creatinine 0.99 Glucose 376 H Calcium 7.8 L - Impressions ITS Impressions Abdomen/Pelvis CT 02/09/19 18:20 IMPRESSION: Bilateral nephrolithiasis with a fairly large stone on each side, larger on the right. These have increased in size. The right-sided stone is in the central renal pelvis. However no hydronephrosis or other obstructive change of either kidney and no ureteral stone. D/ / Manny Durand MD / Manny Durand MD Interpreting Provider: Manny Durand MD Chest X-Ray 02/09/19 19:55 IMPRESSION: No acute process. D/ / Dom Rangel MD / Dom Rangel MD Interpreting Provider: Dom Rangel MD Retrograde Pyelogram 02/10/19 15:00 IMPRESSION: Intraprocedural fluoroscopic spot images as above. See separate procedure report for more information. D/ / Tl Peters MD / Tl Peters MD Interpreting Provider: Tl Peters MD - Time Spent With Patient Total time spent is greater than 50% in coordination of care (as documented) at patient's floor/unit and/or counseling patient: - Attending Attestation patient was seen on 02/09 I performed a history and physical examination of the patient and discussed his management with the resident. I reviewed the residents note and agree with the documented findings and plan of care.
[2019-02-09] MEDS ORDERED: ALPRAZolam 1 MG TABLET PO PRN (23:19)
[2019-02-09] MEDS: *HR* Ticagrelor 90 MG TABLET PO SCH (23:46)
[2019-02-10] MEDS: Insulin LISPRO 300 UNITS/3 ML VIAL SQ SCH ×3 (01:00→12:25)
[2019-02-10] MEDS: 0.9 % Sodium Chloride 1,000 ML IVC SCH ×2 (01:02→09:18)
[2019-02-10] MEDS ORDERED: Acetaminophen IV 500 MG/50 ML INFUS..BTL IVPB ONE (04:02)
[2019-02-10 04:10] LABS: Basophils % 0.2 %; Hematocrit 29.7 % (35.3-44.9); Immature Granulocytes % 0.6 % (0-4); Lymphocytes # 0.5 K/mcL (0.6-4.6); Lymphocytes % 4.4 %; Mean Corpuscular HGB Conc 32.7 g/dL (31.6-35.5); Mean Corpuscular Hemoglobin 30.8 pg (28.0-33.3); Mean Corpuscular Volume 94.3 fL (83.0-100.0); Mean Platelet Volume 9.8 fL (9.4-12.4); Monocytes # 1.2 K/mcL (0.0-1.3); Monocytes % 9.9 %; Neutrophils # 10.4 K/mcL (1.6-8.9); Platelet Count 173 K/mcL (140-400); Red Blood Count 3.15 M/mcL (3.82-4.97); Red Cell Distribution Width 13.5 % (11.5-14.5); Segmented Neutrophils % 84.9 %; White Blood Count 12.3 K/mcL (4.3-11.1)
[2019-02-10 04:12] LABS: Hemoglobin 9.7 g/dL (11.5-15.4)
[2019-02-10 04:27] LABS: BUN/Creatinine Ratio 22 (6-26); Blood Urea Nitrogen 23 mg/dL (6-20); Calcium 7.3 mg/dL (8.6-10.3); Carbon Dioxide 17 mEq/L (23-29); Chloride 110 mEq/L (98-107); Glucose 129 mg/dL (70-105); Osmolality,Calculated 287 (280-300); Potassium 3.8 mEq/L (3.5-5.1); Sodium 136 mEq/L (136-145); eGFR For African Americans > 60 (> 60); eGFR For Non-African Americans 57 (> 60)
[2019-02-10] MEDS ORDERED: *HR* Dextrose 50 % in Water (Syg) 50 ML SYRINGE IVP PRN ×2 (04:27→16:25)
[2019-02-10] MEDS ORDERED: D5% in Water 1,000 ML IVC PRN ×2 (04:27→16:25)
[2019-02-10] MEDS ORDERED: Dextrose Gel 15 GM/37.5 ML TUBE PO PRN ×4 (04:27→16:25)
[2019-02-10] MEDS: *HR* Ticagrelor 90 MG TABLET PO SCH ×3 (08:01→21:40)
[2019-02-10] MEDS ORDERED: cefTRIAXone 2,000 MG in Water for inj. (sterile) 10 ML IVP SCH (09:00)
[2019-02-10] MEDS ORDERED: Aspirin 81 MG TAB.CHEW PO SCH (09:00)
[2019-02-10] MEDS ORDERED: cefTRIAXone 2,000 MG in Water for inj. (sterile) 20 ML IVP SCH (09:00)
[2019-02-10] MEDS ORDERED: cefTRIAXone 1,000 MG in Water for inj. (sterile) 10 ML IVP SCH (09:00)
--- NOTE | 2019-02-10 10:44 | Urology - Consult Note ---
<Connie Oates N - Last Filed: 02/10/19 10:41> Date of Encounter: 02/10/19 Time of Encounter: 08:20 - Assessment and Plan (1) Nephrolithiasis Current Visit: Yes Status: Acute Assessment and plan: Patient is a 48-year-old female who presents with bilateral nephrolithiasis. Patient was tentatively scheduled to undergo a right ureteroscopic stone extraction with Dr. Guillen in 1 week. Patient presents with intractable right flank pain, fever and urinary tract infection. We discussed surgical risks and benefits, and patient verbalized understanding. Patient signed consent, and she is prepared undergo a cystoscopy, right retrograde pyelogram and right ureteral stent placement later this afternoon with Dr. Guillen. Patient will continue to remain nothing by mouth. (2) UTI (urinary tract infection) Current Visit: Yes Status: Acute Assessment and plan: Patient is a 48-year-old female who presents with a urinary tract infection. Currently, vital signs are stable and afebrile, although, patient has sustained a maximum temperature to 102.8F overnight. White blood cell count is improved to 12.3. Patient is receiving IV Rocephin. Blood and urine cultures are pending. Qualifiers: Urinary tract infection type: acute cystitis Hematuria presence: with hem aturia Qualified Code(s): N30.01 - Acute cystitis with hematuria (3) Right flank pain Current Visit: Yes Status: Acute Assessment and plan: Patient is a 48-year-old female who presents with intractable right flank pain. Patient has an enlarging right renal pelvis stone that may be creating a ball valve effect and intermittently obstructing renal outflow. We will plan to proceed with ureteral stent placement. Patient is aware she will require a staged stone extraction procedure. Urology CN:HPI Consult date: 02/10/19 Reason for consult Urology: Other (nephrolithiasis; UTI) Requesting physician: Leeroy Sheffield History of present illness: Patient is a 48-year-old female who presents with bilateral nephrolithiasis and a urinary tract infection. Patient is tentatively scheduled to undergo a right ureteroscopic stone extraction with Dr. Guillen in 1 week. Patient reports acute worsening in right flank pain as well as fever, chills and gross hematuria. Patient initially presented to her PCP office and was subsequently sent to the emergency department secondary to fever and hypotension. Patient underwent a CT of the abdomen and pelvis revealing interval increase in size of right renal stone as well as bilateral nephrolithiasis without obvious obstruction or hydronephrosis. Patient sustained a maximum temperature to 102.8, and blood and urine cultures have been collected. Acute kidney injury is improved from a serum creatinine of 1.5-1.04. Currently, patient is lying in bed in no apparent distress, and she has been nothing by mouth. She reports a positive family history of renal stones through her father. Patient is currently being anticoagulated with Brilinta secondary to recent history of CAD and cardiac stent placement. Past Med Surg Social Fam HX - Past Medical History Medical history: coronary artery disease, diabetes, hyperlipidemia, hypertension, kidney stones, myocardial infarction Additional medical history: diabetes type 2, x 2. Psychiatric history: anxiety - Past Surgical History Surgical History: angioplasty/stent Additional surgical history: TMJ sx. heart cath - Social History Smoking Status: Never smoker Smokeless Tobacco Status: No Alcohol use: rarely Drug use: none - Family History Mother Living Status: Still Living Hx Family Cardiac Disorders: Yes Hx Family Respiratory Disorders: No Hx Family Cancer: No Hx Family GI Disorders: No Hx Family Endocrine Disorder: No Hx Family Neuromuscular Disorders: No Hx Family Neurologic Disorders: No Hx Family HEENT Disorders: No Hx Family Autoimmune Disorders: No Brother Hx Family Cardiac Disorders: Yes Father Living Status: Still Living Hx Family Cardiac Disorders: Yes Hx Family Cancer: Yes (colon) Medications and Allergies ALPRAZolam [Xanax 1 MG Tablet] 1 mg PO HS PRN 05/24/18 [History] Metformin HCl 500 mg PO BID #60 tablet 05/24/18 [Rx] Aspirin 81 mg PO DAILY 08/21/18 [History] Atorvastatin Calcium [Lipitor] 80 mg PO HS 09/24/18 [History] Carvedilol [Coreg] 6.25 mg PO BID 09/24/18 [History] Lisinopril 5 mg PO DAILY 09/24/18 [History] Nitroglycerin [Nitrostat] 0.4 mg SL PRN PRN 09/24/18 [History] Ticagrelor [Brilinta] 90 mg PO BID 09/24/18 [History] OxyCODONE/APAP 5/325 [Percocet 5/325 MG] 1 each PO Q12H PRN 02/10/19 [History] Allergy/AdvReac Type Severity Reaction Status Date / Time Penicillins [PCN] Allergy Gastrointestinal Verified 02/10/19 08:45 Upset/nausea/vomiting Review of Systems - Constitutional chills, fatigue, fever(s) - EENT Nose, mouth and throat: no dizziness, no headache(s) - Cardiovascular no chest pain, no diaphoresis - Respiratory no cough, no dyspnea - Gastrointestinal abdominal pain, nausea, no vomiting - Genitourinary Genitourinary: dysuria, hematuria, no change in urinary stream, no difficulty urinating, no urinary frequency, no urinary hesitancy, no urinary incontinence, no urinary urgency - Musculoskeletal back pain, no muscle weakness - Integumentary no erythema, no rash - Neurological no confusion, no syncope - Psychiatric no anxiety, no confusion - Hematologic/Lymphatic easy bleeding, easy bruising - Allergic/Immunologic no throat swelling, no wheezing Exam Initial Vital Signs Temp Pulse Resp BP Pulse Ox 99.1 F 84 16 107/59 98 02/09/19 17:18 02/09/19 17:18 02/09/19 17:18 02/09/19 17:18 02/09/19 17:18 - General physical appearance Present: well developed, no distress, no pain - Eyes Present: PERRL, normal ocular movement - ENT Present: normal nares, no hearing loss, no congestion - Neck Present: no masses, trachea midline, no lymphadenopathy - Respiratory Present: normal respiratory effort - Cardiovascular Cardiovascular exam IM: RRR - Abdomen Abdomen: Present: soft, non tender. Absent: distended - Genitourinary Present: other (right cvat ) - Integumentary Present: no rash, no abnormal pigmentation - Neurologic Present: normal coordination - Musculoskeletal Present: other (normal posture ) Urology Results - Labs 02/10/19 03:32 02/10/19 03:32 Abnormal lab results WBC 12.3 K/mcL (4.3-11.1) H 02/10/19 03:32 RBC 3.15 M/mcL (3.82-4.97) L 02/10/19 03:32 Hgb 9.7 g/dL (11.5-15.4) L D 02/10/19 03:32 Hct 29.7 % (35.3-44.9) L 02/10/19 03:32 Neutrophils # 10.4 K/mcL (1.6-8.9) H 02/10/19 03:32 Lymphocytes # 0.5 K/mcL (0.6-4.6) L 02/10/19 03:32 Monocytes # 1.5 K/mcL (0.0-1.3) H 02/09/19 18:30 Sodium 134 mEq/L (136-145) L 02/09/19 18:30 Chloride 110 mEq/L (98-107) H 02/10/19 03:32 Carbon Dioxide 17 mEq/L (23-29) L 02/10/19 03:32 BUN 23 mg/dL (6-20) H 02/10/19 03:32 Creatinine 1.51 mg/dL (0.60-1.20) H 02/09/19 18:30 Est GFR ( Amer) 45 (> 60) L 02/09/19 18:30 Est GFR (Non-Af Amer) 57 (> 60) L 02/10/19 03:32 Glucose 129 mg/dL (70-105) H 02/10/19 03:32 POC Glucose 127 mg/dL (70-99) H 02/10/19 05:27 Lactic Acid 3.0 mmol/L (0.5-2.2) H 02/09/19 18:30 Calcium 7.3 mg/dL (8.6-10.3) L 02/10/19 03:32 Urine Clarity Turbid (Clear) A 02/09/19 19:26 Urine Protein >=300 mg/dL (Neg-Trace) H 02/09/19 19:26 Urine Blood Large (Negative) H 02/09/19 19:26 Urine Nitrite Positive (Negative) A 02/09/19 19:26 Urine Bilirubin Small (Negative) H 02/09/19 19:26 Ur Leukocyte Esterase Moderate (Negative) H 02/09/19 19:26 Urine Microscopic RBC TNTC per hpf (0-3) H 02/09/19 19:26 Urine Microscopic WBC TNTC per hpf (0-3) H 02/09/19 19:26 Ur Squamous Epith Cells Many per lpf (None-Few) H 02/09/19 19:26 Urine Bacteria Many per hpf (None-Few) H 02/09/19 19:26 Ur Culture Indicated? YES (NO) A 02/09/19 19:26 Diabetes panel 02/09/19 02/10/19 Range/Units 18:30 03:32 Sodium 134 L 136 (136-145) mEq/L Potassium 4.1 3.8 (3.5-5.1) mEq/L Chloride 100 110 H (98-107) mEq/L Carbon Dioxide 24 17 L (23-29) mEq/L BUN 24 H 23 H (6-20) mg/dL Creatinine 1.51 H 1.04 (0.60-1.20) mg/dL Glucose 152 H 129 H (70-105) mg/dL Calcium 8.9 7.3 L (8.6-10.3) mg/dL Calcium panel 02/09/19 02/10/19 Range/Units 18:30 03:32 Calcium 8.9 7.3 L (8.6-10.3) mg/dL Pituitary panel 02/09/19 02/10/19 Range/Units 18:30 03:32 Sodium 134 L 136 (136-145) mEq/L Potassium 4.1 3.8 (3.5-5.1) mEq/L Chloride 100 110 H (98-107) mEq/L Carbon Dioxide 24 17 L (23-29) mEq/L BUN 24 H 23 H (6-20) mg/dL Creatinine 1.51 H 1.04 (0.60-1.20) mg/dL Glucose 152 H 129 H (70-105) mg/dL Calcium 8.9 7.3 L (8.6-10.3) mg/dL Adrenal panel 02/09/19 02/10/19 Range/Units 18:30 03:32 Sodium 134 L 136 (136-145) mEq/L Potassium 4.1 3.8 (3.5-5.1) mEq/L Chloride 100 110 H (98-107) mEq/L Carbon Dioxide 24 17 L (23-29) mEq/L BUN 24 H 23 H (6-20) mg/dL Creatinine 1.51 H 1.04 (0.60-1.20) mg/dL Glucose 152 H 129 H (70-105) mg/dL Calcium 8.9 7.3 L (8.6-10.3) mg/dL All other labs normal. - Imaging CT scan - abdomen: report reviewed, image reviewed CT scan - pelvis: report reviewed, image reviewed Consult Discharge Plan - Plan Referrals: Jai Clarke Jr, MD [Primary Care Provider] - <Yaya Guillen W - Last Filed: 02/10/19 15:27> Date of Encounter: 02/10/19 - Assessment and Plan (1) Nephrolithiasis Current Visit: Yes Status: Acute Assessment and plan: Patient seen and examined independently. History, review of systems and physical exam findings of PA verified. All pertinent imaging reviewed. I am in agreement with the assessment and plan as outlined by our Urologic Surgery Department Physician War[employer] Knitter Helper, Иван. Discussed CT findings, urgent potential life-threatening situation with obstructing stone in setting of active urinary tract infection. Patient with developing picture of urosepsis. Plan: Urgent urinary diversion by stent placement today. (2) Pyelonephritis Current Visit: Yes Status: Acute Assessment and plan: Fevers above 102, white count 15 right flank pain consistent with pyelonephritis. Right ureteropelvic junction calculus suspected intermittent obstruction. Plan: Urgent urinary diversion by stent placement under anesthesia today. (3) Right flank pain Current Visit: Yes Status: Acute Assessment and plan: Patient agreeable to urgent urinary diversion by stent placement under anesthesia today. Stage ureteroscopic address of stone as scheduled for next week. Home on culture specific oral antibiotics for 1014 days. Exam Initial Vital Signs Temp Pulse Resp BP Pulse Ox 99.1 F 84 16 107/59 98 02/09/19 17:18 02/09/19 17:18 02/09/19 17:18 02/09/19 17:18 02/09/19 17:18 Urology Results - Labs 02/10/19 03:32 02/10/19 03:32 Abnormal lab results WBC 12.3 K/mcL (4.3-11.1) H 02/10/19 03:32 RBC 3.15 M/mcL (3.82-4.97) L 02/10/19 03:32 Hgb 9.7 g/dL (11.5-15.4) L D 02/10/19 03:32 Hct 29.7 % (35.3-44.9) L 02/10/19 03:32 Neutrophils # 10.4 K/mcL (1.6-8.9) H 02/10/19 03:32 Lymphocytes # 0.5 K/mcL (0.6-4.6) L 02/10/19 03:32 Monocytes # 1.5 K/mcL (0.0-1.3) H 02/09/19 18:30 Sodium 134 mEq/L (136-145) L 02/09/19 18:30 Chloride 110 mEq/L (98-107) H 02/10/19 03:32 Carbon Dioxide 17 mEq/L (23-29) L 02/10/19 03:32 BUN 23 mg/dL (6-20) H 02/10/19 03:32 Creatinine 1.51 mg/dL (0.60-1.20) H 02/09/19 18:30 Est GFR ( Amer) 45 (> 60) L 02/09/19 18:30 Est GFR (Non-Af Amer) 57 (> 60) L 02/10/19 03:32 Glucose 129 mg/dL (70-105) H 02/10/19 03:32 POC Glucose 127 mg/dL (70-99) H 02/10/19 05:27 Lactic Acid 3.0 mmol/L (0.5-2.2) H 02/09/19 18:30 Calcium 7.3 mg/dL (8.6-10.3) L 02/10/19 03:32 Urine Clarity Turbid (Clear) A 02/09/19 19:26 Urine Protein >=300 mg/dL (Neg-Trace) H 02/09/19 19:26 Urine Blood Large (Negative) H 02/09/19 19:26 Urine Nitrite Positive (Negative) A 02/09/19 19:26 Urine Bilirubin Small (Negative) H 02/09/19 19:26 Ur Leukocyte Esterase Moderate (Negative) H 02/09/19 19:26 Urine Microscopic RBC TNTC per hpf (0-3) H 02/09/19 19:26 Urine Microscopic WBC TNTC per hpf (0-3) H 02/09/19 19:26 Ur Squamous Epith Cells Many per lpf (None-Few) H 02/09/19 19:26 Urine Bacteria Many per hpf (None-Few) H 02/09/19 19:26 Ur Culture Indicated? YES (NO) A 02/09/19 19:26 Diabetes panel 02/09/19 02/10/19 Range/Units 18:30 03:32 Sodium 134 L 136 (136-145) mEq/L Potassium 4.1 3.8 (3.5-5.1) mEq/L Chloride 100 110 H (98-107) mEq/L Carbon Dioxide 24 17 L (23-29) mEq/L BUN 24 H 23 H (6-20) mg/dL Creatinine 1.51 H 1.04 (0.60-1.20) mg/dL Glucose 152 H 129 H (70-105) mg/dL Calcium 8.9 7.3 L (8.6-10.3) mg/dL Calcium panel 02/09/19 02/10/19 Range/Units 18:30 03:32 Calcium 8.9 7.3 L (8.6-10.3) mg/dL Pituitary panel 02/09/19 02/10/19 Range/Units 18:30 03:32 Sodium 134 L 136 (136-145) mEq/L Potassium 4.1 3.8 (3.5-5.1) mEq/L Chloride 100 110 H (98-107) mEq/L Carbon Dioxide 24 17 L (23-29) mEq/L BUN 24 H 23 H (6-20) mg/dL Creatinine 1.51 H 1.04 (0.60-1.20) mg/dL Glucose 152 H 129 H (70-105) mg/dL Calcium 8.9 7.3 L (8.6-10.3) mg/dL Adrenal panel 02/09/19 02/10/19 Range/Units 18:30 03:32 Sodium 134 L 136 (136-145) mEq/L Potassium 4.1 3.8 (3.5-5.1) mEq/L Chloride 100 110 H (98-107) mEq/L Carbon Dioxide 24 17 L (23-29) mEq/L BUN 24 H 23 H (6-20) mg/dL Creatinine 1.51 H 1.04 (0.60-1.20) mg/dL Glucose 152 H 129 H (70-105) mg/dL Calcium 8.9 7.3 L (8.6-10.3) mg/dL All other labs normal.
--- NOTE | 2019-02-10 12:31 | Event Note ---
Date of Encounter: 02/10/19 Time of Encounter: 09:30 H&P reviewed. 48-year-old female with history of nephrolithiasis is admitted for severe sepsis with DESHAWN secondary to pyelonephritis. Improving on IV Abx and IVF. Discussed with Urology, for OR later today. NPO till procedure and resume diabetic diet postop. Follow up on blood/urine cultures.
[2019-02-10] MEDS ORDERED: Ondansetron 4 MG/2 ML VIAL ONE (13:13)
[2019-02-10] MEDS ORDERED: Dexamethasone 4 MG/ML VIAL ONE (13:13)
[2019-02-10] MEDS ORDERED: Lidocaine -MPF 2% 2 ML VIAL ONE (13:13)
[2019-02-10] MEDS ORDERED: *HR* FentaNYL (PF) 100 MCG/2 ML VIAL ONE (13:16)
[2019-02-10] MEDS ORDERED: *HR* Propofol 200 MG/20 ML VIAL IVP ONE (13:16)
[2019-02-10] MEDS ORDERED: *HR* Midazolam HCl 2 MG/2 ML VIAL ONE (13:16)
[2019-02-10] MEDS ORDERED: Isovue-300 50 ML VIAL ONE (14:17)
--- NOTE | 2019-02-10 14:35 | Anesthesia Evaluation PreOp ---
Date of Encounter: 02/10/19 Time of Encounter: 14:33 - Past History Planned Operation: CYSTO, RIGHT RPG, RIGHT URETERIC STENT Cardiac History: HTN, Cardiac Stent (ROBERTA pLAD 07/2018, ON DAPT) Pulmonary History: Denies Any Significant HX ENVIRONMENTAL SCIENCE TECHNICIAN History: Denies Any Significant HX Other Medical History: Diabetes Type II, Other (ANEMIA) Anesthesia History: No Prior Anesthetic Complications, Past Anesthesia Alcohol Use: rarely Drug use: none Medications and Allergies ALPRAZolam [Xanax 1 MG Tablet] 1 mg PO HS PRN 05/24/18 [History] Metformin HCl 500 mg PO BID #60 tablet 05/24/18 [Rx] Aspirin 81 mg PO DAILY 08/21/18 [History] Atorvastatin Calcium [Lipitor] 80 mg PO HS 09/24/18 [History] Carvedilol [Coreg] 6.25 mg PO BID 09/24/18 [History] Lisinopril 5 mg PO DAILY 09/24/18 [History] Nitroglycerin [Nitrostat] 0.4 mg SL PRN PRN 09/24/18 [History] Ticagrelor [Brilinta] 90 mg PO BID 09/24/18 [History] OxyCODONE/APAP 5/325 [Percocet 5/325 MG] 1 each PO Q12H PRN 02/10/19 [History] Allergy/AdvReac Type Severity Reaction Status Date / Time Penicillins [PCN] Allergy Gastrointestinal Verified 02/10/19 08:45 Upset/nausea/vomiting - Meds/Allergy Pre-op Review Medications Reviewed: Yes Allergies Reviewed: Yes Beta Blockers on Current Med List: Yes If Beta Blockers taken, Date/Time (Last Dose taken): ON HOLD - HYPOTENSION Anesthesia Results - Labs 02/10/19 03:32 02/10/19 03:32 Anesthesia Exam Vital Signs/O2 Sat, Most Current Temp Pulse Resp BP Pulse Ox 98.9 F 87 18 102/59 98 02/10/19 11:34 02/10/19 11:34 02/10/19 11:34 02/10/19 11:34 02/10/19 11:34 Weight: 45 KG - BMI 20 NPO (# of Hours): 8 - HEENT Mallampati: II Teeth: Normal - Cardiac Rhythm: Regular - Pulmonary Breath Sounds: bilateral Clear Anesthesia Assess/Plan ASA Score: 3 Anesthetic Plan: General Monitoring Plan: Standard Monitors Recovery Plan: PACU
[2019-02-10] MEDS ORDERED: *HR* Promethazine 25 MG/ML VIAL IVP PRN ×2 (14:54→16:25)
[2019-02-10] MEDS ORDERED: *HR* OxyCODONE Immed Rel 5 MG TABLET PO PRN (14:54)
[2019-02-10] MEDS ORDERED: *HR* FentaNYL (PF) 100 MCG/2 ML VIAL IVP PRN (14:54)
[2019-02-10] MEDS ORDERED: Ondansetron 4 MG/2 ML VIAL IVP ONE ×2 (14:54→16:25)
[2019-02-10] MEDS ORDERED: *HR* Labetalol 20 MG/4 ML SYRINGE IVP PRN ×2 (14:54→16:25)
[2019-02-10] MEDS ORDERED: EPHEDrine 50 MG/ML VIAL ONE (15:18)
--- NOTE | 2019-02-10 15:31 | Operative Note ---
Date of procedure: 02/10/19 Pre-op diagnosis: Right renal pelvic calculus, right flank pain Post-op diagnosis: same Procedure: Cystoscopy, right retrograde ureteral pyelography with intraoperative interpretation of radiographic images in real time by surgeon to facilitate procedure, right double-J stent placement Implants: 6 x 24 right double-J stent Complications: None Anesthesia: GETA Surgeon: Yaya Guillen Was there an patient clerical assistant present: No Estimated blood loss (cc): 0 Specimen: None Condition: stable Disposition: PACU Procedure in Detail: The patient brought to the operating theater and placed on table in supine position. The patient identified by name date of and administered a general anesthetic. The patient placed dorsal lithotomy then prepped and draped in the normal sterile fashion. A cystoscope was inserted urethral meatus and advanced with the bladder under direct visualization. The urine was quite cloudy emergently consistent with active infection. The right ureteral orifice was identified and cannulated with a 5-[place] open-ended catheter. With gentle injection of contrast a right retrograde ureteral pyelogram was performed. Intraoperative interpretation of the graphic images in real time by surgeon to facilitate procedure revealed a filling defect in the very distal ureter near the catheter. Is unclear if this was an air bubble or a stone. However, this did not move throughout the retrograde. A large filling defect was identified within the renal pelvis. Based on these findings urinary diversion was indicated. Under fluoroscopic guidance a Glidewire was advanced above the stone into the upper portion of the right collecting system. A 6 x 24 stent was advanced under fluoroscopic guidance. The Glidewire was removed. Proximal and distal curls sent were confirmed in good position fluoroscopically. This ended the operative procedure.
--- NOTE | 2019-02-10 15:57 | Anesthesia Evaluation Post Op ---
Date of Encounter: 02/10/19 Time of Encounter: 16:00 - Vital Signs Vital Signs: Vital Signs/O2 Sat/Glucose, Most Current Temp Pulse Resp BP Pulse Ox 02/10/19 15:52 86 25 122/66 97 02/10/19 15:44 96 22 125/69 97 02/10/19 15:34 98.2 F 101 20 127/71 97 - Lungs Lungs: Clear Ascult./Percussion - Airway Airway: Non-obstructed - Cardiovascular Regular Rate - Mental Status Mental Status: Alert & Oriented, Answers Appropriately - Pain Pain Scale: 0 - Nausea Vomiting Nausea Vomiting: Not Present - Hydration Hydration: Ice chips - Discharge PostOp Status: Transfer Patient to floor
[2019-02-10] MEDS ORDERED: Naloxone 0.4 MG/ML INJ IVP PRN (16:25)
[2019-02-10] MEDS ORDERED: Ondansetron 4 MG/2 ML VIAL IVP PRN (16:25)
[2019-02-10] MEDS: ALPRAZolam 1 MG TABLET PO PRN (21:40)
[2019-02-11] MEDS: Insulin LISPRO 300 UNITS/3 ML VIAL SQ SCH ×4 (01:27→17:16)
[2019-02-11 03:46] LABS: Basophils % 0.1 %; Hematocrit 30.2 % (35.3-44.9); Hemoglobin 9.9 g/dL (11.5-15.4); Immature Granulocytes % 0.7 % (0-4); Lymphocytes # 0.3 K/mcL (0.6-4.6); Lymphocytes % 4.5 %; Mean Corpuscular HGB Conc 32.8 g/dL (31.6-35.5); Mean Corpuscular Hemoglobin 30.4 pg (28.0-33.3); Mean Corpuscular Volume 92.6 fL (83.0-100.0); Mean Platelet Volume 10.1 fL (9.4-12.4); Monocytes # 0.2 K/mcL (0.0-1.3); Neutrophils # 6.2 K/mcL (1.6-8.9); Platelet Count 174 K/mcL (140-400); Red Blood Count 3.26 M/mcL (3.82-4.97); Red Cell Distribution Width 13.3 % (11.5-14.5); Segmented Neutrophils % 91.7 %; White Blood Count 6.7 K/mcL (4.3-11.1)
[2019-02-11 04:06] LABS: BUN/Creatinine Ratio 26 (6-26); Blood Urea Nitrogen 26 mg/dL (6-20); Calcium 7.8 mg/dL (8.6-10.3); Carbon Dioxide 18 mEq/L (23-29); Chloride 103 mEq/L (98-107); Glucose 376 mg/dL (70-105); Osmolality,Calculated 292 (280-300); Potassium 4.6 mEq/L (3.5-5.1); Sodium 131 mEq/L (136-145); eGFR For African Americans > 60 (> 60); eGFR For Non-African Americans 60 (> 60)
[2019-02-11] MEDS: Aspirin 81 MG TAB.CHEW PO SCH (09:06)
[2019-02-11] MEDS: cefTRIAXone 2,000 MG in Water for inj. (sterile) 20 ML IVP SCH (09:06)
[2019-02-11] MEDS: *HR* Ticagrelor 90 MG TABLET PO SCH ×2 (09:06→21:00)
--- NOTE | 2019-02-11 11:00 | Internal Med Progress Note ---
Hospitalist Progress Note - Encounter Date of Encounter: 02/11/19 Time of Encounter: 08:30 - Subjective Interval History: No acute events overnight. Underwent R DJ stent insertion yesterday by Urology uneventfully and has not had any further spikes in temp. No flank pain or N/V. - Exam Vitals: Temp Pulse Resp BP Pulse Ox 97.5 F L 65 15 111/64 97 02/11/19 07:11 02/11/19 07:11 02/11/19 07:11 02/11/19 07:11 02/11/19 07:11 Exam: General: A&O X3, conversant, no acute distress Respiratory: CTAB. No accessory muscle use, wheezes, rales, or rhonchi Cardiovascular: normal rate and rhythm, S1S2 Abdomen: Soft, nontender : No significant CVA tenderness bilaterally Neurological: no focal deficits - Assessment and Plan (1) Sepsis Current Visit: Yes Status: Acute Assessment and Plan: presented with flank pain and had fever, tachycardia, and leukocytosis likely due to pyelonephritis with known nephrolithiasis. No obstructive uropathy identified underwent R DJ stent insertion yesterday, POD #1 afebrile > 24 hours on IV Rocephin, continue urine culture growing GNR, will follow up on final culture results (2) Pyelonephritis Current Visit: Yes Status: Acute Assessment and Plan: as above (3) DESHAWN (acute kidney injury) Current Visit: Yes Status: Acute Assessment and Plan: normalized on IVF, will d/c further IVF (4) Nephrolithiasis Current Visit: Yes Status: Acute Assessment and Plan: as above for sepsis will have staged procedure next Wed per Urology (5) CAD (coronary artery disease) Current Visit: Yes Status: Chronic Assessment and Plan: resume home meds (6) Diabetes Current Visit: Yes Status: Chronic Assessment and Plan: metformin on hold, low dose sliding scale ADA diet (7) DVT prophylaxis Current Visit: Yes Status: Acute Assessment and Plan: EPCD - Time Spent with Patient Total time spent is greater than 50% in coordination of care (as documented) at patient's floor/unit and/or counseling patient: 25 - 35 minutes Plan of Care Discussed with: patient - Is Patient Candidate for Palliative Care Consider palliative consult if one or more criteria present:: Multiple recent admissions; same symptoms/problem and no prior consult Internal Medicine: Result - Labs CBC & Chem 7: 02/11/19 03:30 02/11/19 03:30 Labs: Short CBC 02/11/19 Range/Units 03:30 WBC 6.7 (4.3-11.1) K/mcL Hgb 9.9 L (11.5-15.4) g/dL Hct 30.2 L (35.3-44.9) % Plt Count 174 (140-400) K/mcL Neutrophils # 6.2 (1.6-8.9) K/mcL BMP 02/11/19 03:30 Sodium 131 L Potassium 4.6 Chloride 103 Carbon Dioxide 18 L BUN 26 H Creatinine 0.99 Glucose 376 H Calcium 7.8 L - Impressions Impressions Retrograde Pyelogram 02/10/19 15:00 IMPRESSION: Intraprocedural fluoroscopic spot images as above. See separate procedure report for more information. D/ / Tl Peters MD / Tl Peters MD Interpreting Provider: Tl Peters MD Consult Discharge Plan - Plan Referrals: Jai Clarke Jr, MD [Primary Care Provider] - Yaya Guillen [Partnered Physician] - (1) Sepsis Qualifiers: Sepsis type: sepsis due to unspecified organism Sepsis acute organ dysfunction status: with acute organ dysfunction Severe sepsis acute organ dysfunction type: acute renal failure Acute renal failure type: unspecified Severe sepsis shock status: without septic shock Qualified Code(s): A41.9 - Sepsis, unspecified organism; R65.20 - Severe sepsis without septic shock; N17.9 - Acute kidney failure, unspecified (5) CAD (coronary artery disease) Qualifiers: Coronary Disease-Associated Artery/Lesion type: [place] artery [place] vs. transplanted heart: [place] heart Associated angina: without angina Qualified Code(s): I25.10 - Atherosclerotic heart disease of [place] coronary artery without angina pectoris (6) Diabetes Qualifiers: Diabetes mellitus type: type 2 Diabetes mellitus care home insulin use: without care home use Diabetes mellitus complication status: without complication Qualified Code(s): E11.9 - Type 2 diabetes mellitus without complications
--- NOTE | 2019-02-11 11:09 | Urology Progress Note ---
Date of Encounter: 02/11/19 Time of Encounter: 09:00 - Assessment and Plan (1) Nephrolithiasis Current Visit: Yes Status: Acute Assessment and plan: Patient is a 48-year-old female who presents with bilateral nephrolithiasis. Cruz delong underwent cystoscopy, right retrograde pyelogram and right ureteral stent placement yesterday with Dr. Guillen. She is recovering very well postoperatively. Patient will be discharged with oral antibiotics for 10-14 days. She is tentatively scheduled to undergo right ureteroscopic stone extra ction on 02/17/2019. [place] [facility] will contact patient to coordinate her procedure time. (2) UTI (urinary tract infection) Current Visit: Yes Status: Acute Assessment and plan: Patient is a 40-year-old female who presents with urinary tract infection. Preliminary urine culture is positive for gram-negative rods. Vital signs have remained stable and afebrile overnight. White blood cell count is trending down, and renal function is much improved. Patient will require an additional 10-14 days of oral culture sensitive antibiotics. Qualifiers: Urinary tract infection type: acute cystitis Hematuria presence: with hematuria Qualified Code(s): N30.01 - Acute cystitis with hematuria (3) Right flank pain Current Visit: Yes Status: Acute Progress Note Subjective: no new complaints, feels better Narrative: POD #1. Patient seen and examined sitting upright in bed eating breakfast in no apparent distress. Patient is tolerating normal diet without nausea or vomiting. Patient reports she is voiding well without difficulty. Patient admits to some stent discomfort, but overall she is much improved. She denies any fever, chills, gross hematuria or flank pain. Objective Initial Vital Signs Temp Pulse Resp BP Pulse Ox 99.1 F 84 16 107/59 98 02/09/19 17:18 02/09/19 17:18 02/09/19 17:18 02/09/19 17:18 02/09/19 17:18 - General physical appearance Present: well developed, no distress, no pain - Respiratory Present: normal expansion, normal respiratory effort - Abdomen Present: soft, non tender. Absent: distended - Integumentary Present: no rash, no abnormal pigmentation - Musculoskeletal Present: normal posture - Psychiatric Present: oriented to time, oriented to person, oriented to place, speech is normal, memory intact - Labs 02/11/19 03:30 02/11/19 03:30 Diabetes panel 02/11/19 Range/Units 03:30 Sodium 131 L (136-145) mEq/L Potassium 4.6 (3.5-5.1) mEq/L Chloride 103 (98-107) mEq/L Carbon Dioxide 18 L (23-29) mEq/L BUN 26 H (6-20) mg/dL Creatinine 0.99 (0.60-1.20) mg/dL Glucose 376 H (70-105) mg/dL Calcium 7.8 L (8.6-10.3) mg/dL Calcium panel 02/11/19 Range/Units 03:30 Calcium 7.8 L (8.6-10.3) mg/dL Pituitary panel 02/11/19 Range/Units 03:30 Sodium 131 L (136-145) mEq/L Potassium 4.6 (3.5-5.1) mEq/L Chloride 103 (98-107) mEq/L Carbon Dioxide 18 L (23-29) mEq/L BUN 26 H (6-20) mg/dL Creatinine 0.99 (0.60-1.20) mg/dL Glucose 376 H (70-105) mg/dL Calcium 7.8 L (8.6-10.3) mg/dL Adrenal panel 02/11/19 Range/Units 03:30 Sodium 131 L (136-145) mEq/L Potassium 4.6 (3.5-5.1) mEq/L Chloride 103 (98-107) mEq/L Carbon Dioxide 18 L (23-29) mEq/L BUN 26 H (6-20) mg/dL Creatinine 0.99 (0.60-1.20) mg/dL Glucose 376 H (70-105) mg/dL Calcium 7.8 L (8.6-10.3) mg/dL Consult Discharge Plan - Plan Referrals: Jai Clarke Jr, MD [Primary Care Provider] - Yaya Guillen [Partnered Physician] -
[2019-02-11] MEDS ORDERED: Ketorolac 15 MG/ML VIAL IVP ONE (19:04)
[2019-02-11] MEDS ORDERED: *HR* OxyCODONE/APAP 5/325 TABLET PO PRN (19:06)
[2019-02-11] MEDS ORDERED: Insulin LISPRO 300 UNITS/3 ML VIAL SQ SCH (21:00)
[2019-02-11] MEDS: ALPRAZolam 1 MG TABLET PO PRN (23:41)
[2019-02-12 05:24] LABS: Basophils % 0.1 %; Eosinophils % 0.2 %; Hematocrit 29.3 % (35.3-44.9); Hemoglobin 9.4 g/dL (11.5-15.4); Immature Granulocytes % 0.9 % (0-4); Lymphocytes % 10.4 %; Mean Corpuscular HGB Conc 32.1 g/dL (31.6-35.5); Mean Corpuscular Hemoglobin 29.9 pg (28.0-33.3); Mean Corpuscular Volume 93.3 fL (83.0-100.0); Mean Platelet Volume 10.6 fL (9.4-12.4); Monocytes # 0.9 K/mcL (0.0-1.3); Monocytes % 9.1 %; Neutrophils # 7.9 K/mcL (1.6-8.9); Platelet Count 217 K/mcL (140-400); Red Blood Count 3.14 M/mcL (3.82-4.97); Red Cell Distribution Width 13.5 % (11.5-14.5); Segmented Neutrophils % 79.3 %
[2019-02-12 05:44] LABS: BUN/Creatinine Ratio 33 (6-26); Blood Urea Nitrogen 33 mg/dL (6-20); Calcium 8.2 mg/dL (8.6-10.3); Carbon Dioxide 23 mEq/L (23-29); Chloride 107 mEq/L (98-107); Glucose 218 mg/dL (70-105); Osmolality,Calculated 296 (280-300); Potassium 4.2 mEq/L (3.5-5.1); Sodium 136 mEq/L (136-145); eGFR For African Americans > 60 (> 60); eGFR For Non-African Americans 60 (> 60)
[2019-02-12] MEDS: *HR* Ticagrelor 90 MG TABLET PO SCH (09:03)
[2019-02-12] MEDS: Aspirin 81 MG TAB.CHEW PO SCH (09:03)
[2019-02-12] MEDS: Insulin LISPRO 300 UNITS/3 ML VIAL SQ SCH ×2 (09:04→11:33)
[2019-02-12] MEDS: cefTRIAXone 2,000 MG in Water for inj. (sterile) 20 ML IVP SCH (09:06)
--- NOTE | 2019-02-12 09:46 | Discharge Summary ---
- NOTES TO OUTPATIENT PROVIDER Notes to Outpatient Provider: Follow-up with urology as outpatient Orders not resulted at time of discharge: Pending orders 02/09/19 18:30 Culture,Blood [BC] Stat Date of Encounter: 02/12/19 Time of Encounter: 08:00 - Discharge Diagnosis (1) Sepsis Priority: Primary Status: Acute Qualifiers: Sepsis type: sepsis due to unspecified organism Sepsis acute organ dysfunction status: with acute organ dysfunction Severe sepsis acute organ dysfunction type: acute renal failure Acute renal failure type: unspecified Severe sepsis shock status: without septic shock Qualified Code(s): A41.9 - Sepsis, unspecified organism; R65.20 - Severe sepsis without septic shock; N17.9 - Acute kidney failure, unspecified (2) Pyelonephritis Priority: Secondary Status: Acute (3) DESHAWN (acute kidney injury) Priority: Secondary Status: Acute (4) Nephrolithiasis Priority: Secondary Status: Acute (5) CAD (coronary artery disease) Priority: Secondary Status: Chronic Qualifiers: Coronary Disease-Associated Artery/Lesion type: [place] artery [place] vs. transplanted heart: [place] heart Associated angina: without angina Qualified Code(s): I25.10 - Atherosclerotic heart disease of [place] coronary artery wit hout angina pectoris (6) Diabetes Priority: Secondary Status: Chronic Qualifiers: Diabetes mellitus type: type 2 Diabetes mellitus correction insulin use: without correction use Diabetes mellitus complication status: without complication Qualified Code(s): E11.9 - Type 2 diabetes mellitus without complications (7) DVT prophylaxis Priority: Secondary Status: Acute Hospital course: Ms. Harrington is a 48 year old female with history of nephrolithiasis, CAD s/p PCI who was admitted for severe sepsis with DESHAWN secondary to pyelonephritis. Underwent right double-J stent insertion by Urology on 02/10 uneventfully. Blood cultures remained negative but urine culture came back +ve for Klebsiella pneumoniae sensitive to Augmentin. After completing 4 days of IV Rocephin while inpatient, she will complete additional 7 days of oral Augmentin at the time of discharge. She is scheduled for outpatient R ureteroscopic stone extraction on 02/17. Discharge discussed with: patient, nurse, store consultant - Time Spent with Patient Total time spent providing and/or coordinating discharge services: 31 mins - Discharge Medications Prescriptions: New Amoxicillin/Clavulanate [Augmentin] 875 mg PO BIDWM 7 Days #14 tablet Continued ALPRAZolam [Xanax 1 MG Tablet] 1 mg PO HS PRN PRN Reason: Anxiety Metformin HCl 500 mg PO BID #60 tablet Aspirin 81 mg PO DAILY Ticagrelor [Brilinta] 90 mg PO BID Lisinopril 5 mg PO DAILY Atorvastatin Calcium [Lipitor] 80 mg PO HS Carvedilol [Coreg] 6.25 mg PO BID Nitroglycerin [Nitrostat] 0.4 mg SL PRN PRN PRN Reason: Angina OxyCODONE/APAP 5/325 [Percocet 5/325 MG] 1 each PO Q12H PRN PRN Reason: Pain Home Medications: ALPRAZolam [Xanax 1 MG Tablet] 1 mg PO HS PRN 05/24/18 [History] Metformin HCl 500 mg PO BID #60 tablet 05/24/18 [Rx] Aspirin 81 mg PO DAILY 08/21/18 [History] Atorvastatin Calcium [Lipitor] 80 mg PO HS 09/24/18 [History] Carvedilol [Coreg] 6.25 mg PO BID 09/24/18 [History] Lisinopril 5 mg PO DAILY 09/24/18 [History] Nitroglycerin [Nitrostat] 0.4 mg SL PRN PRN 09/24/18 [History] Ticagrelor [Brilinta] 90 mg PO BID 09/24/18 [History] OxyCODONE/APAP 5/325 [Percocet 5/325 MG] 1 each PO Q12H PRN 02/10/19 [History] Amoxicillin/Clavulanate [Augmentin] 875 mg PO BIDWM 7 Days #14 tablet 02/12/19 [Rx] Allergies/Adverse Reactions: Allergy/AdvReac Type Severity Reaction Status Date / Time Penicillins [PCN] Allergy Gastrointestinal Verified 02/10/19 08:45 Upset/nausea/vomiting Date of admission: 02/11/19 13:46 Primary care physician: Jai Clarke Jr, MD Consults: 02/09/19 20:37 Consult to Urology [CONS] Stat Consulting Provider: Urology Tiffany Reason for Consult: Sepsis UTI Time Notified: 20:38 Call Completed: Yes - Constitutional Vitals: Temp Pulse Resp BP Pulse Ox 97.6 F 76 14 127/80 96 02/12/19 06:46 02/12/19 06:46 02/12/19 06:46 02/12/19 06:46 02/12/19 06:46 Exam: General: A&O X3, conversant, no acute distress Respiratory: CTAB. No accessory muscle use, wheezes, rales, or rhonchi Cardiovascular: normal rate and rhythm, S1S2 Abdomen: Soft, nontender : No significant CVA tenderness bilaterally Neurological: no focal deficits - Patient Status Disposition: Home, Self-Care Condition: Fair Functional capacity at discharge: independent ambulation Overall status at discharge: patient is progressing back to baseline - Discharge Instructions Instructions: Chronic Hypertension (DC), Urinary Tract Infection in Women (DC), Sepsis (DC) Follow Up With: Jai Clarke Jr, MD [Primary Care Provider] - 02/19/19 11:30 am (Follow up as scheduled. ) Yaya Guillen [Partnered Physician] - 02/18/19 10:30 am (Follow up as scheduled. ) - Diet and Activity Activity: resume usual activities as tolerated Diet: diabetic diet
[2019-02-12 11:29] VITALS: BP 116/74
--- NOTE | 2019-02-12 13:35 | Urology Progress Note ---
<Connie Oates N - Last Filed: 02/12/19 13:28> Date of Encounter: 02/12/19 Time of Encounter: 09:50 - Assessment and Plan (1) Nephrolithiasis Current Visit: Yes Status: Acute Assessment and plan: Patient is a 48-year-old female who presents 2 days status post cystoscopy, right retrograde ureteral pyelography with intraoperative interpretation of radiographic images in real time by surgeon to facilitate procedure, right double-J stent placement. Patient is recovering very well postoperatively. Patient has been instructed by cardiology to hold anticoagulation for [address] Guillen recommends holding for at least 2-3 days prior to ureteroscopy scheduled for 02/17/2019. (2) UTI (urinary tract infection) Current Visit: Yes Status: Acute Assessment and plan: Patient is a 48-year-old female who presents today status post ureteral stent placement. Patient has a Klebsiella urinary tract infection, and she is receiving IV Rocephin. Vital signs are stable and afebrile. Urology recomm ended an additional 10-14 days of oral culture sensitive antibiotics. She is scheduled to undergo a ureteroscopic stone extraction with Dr. Guillen on 02/17/2019. Qualifiers: Urinary tract infection type: acute cystitis Hematuria presence: with hematuria Qualified Code(s): N30.01 - Acute cystitis with hematuria (3) Right flank pain Current Visit: Yes Status: Acute Progress Note Narrative: POD #2. Patient seen and examined sitting upright in bed eating breakfast in no apparent distress. Patient is tolerating normal diet without nausea or vomiting. Patient reports stent discomfort as well managed at present. She denies any fever, chills or flank pain. Objective Initial Vital Signs Temp Pulse Resp BP Pulse Ox 99.1 F 84 16 107/59 98 02/09/19 17:18 02/09/19 17:18 02/09/19 17:18 02/09/19 17:18 02/09/19 17:18 - General physical appearance Present: no distress, no pain - Respiratory Present: normal expansion, normal respiratory effort - Abdomen Present: soft, non tender. Absent: distended - Integumentary Present: no rash, no abnormal pigmentation - Musculoskeletal Present: normal posture - Psychiatric Present: oriented to time, oriented to person, oriented to place, speech is normal, memory intact - Labs 02/12/19 04:53 02/12/19 04:53 Diabetes panel 02/12/19 Range/Units 04:53 Sodium 136 (136-145) mEq/L Potassium 4.2 (3.5-5.1) mEq/L Chloride 107 (98-107) mEq/L Carbon Dioxide 23 (23-29) mEq/L BUN 33 H (6-20) mg/dL Creatinine 0.99 (0.60-1.20) mg/dL Glucose 218 H (70-105) mg/dL Calcium 8.2 L (8.6-10.3) mg/dL Calcium panel 02/12/19 Range/Units 04:53 Calcium 8.2 L (8.6-10.3) mg/dL Pituitary panel 02/12/19 Range/Units 04:53 Sodium 136 (136-145) mEq/L Potassium 4.2 (3.5-5.1) mEq/L Chloride 107 (98-107) mEq/L Carbon Dioxide 23 (23-29) mEq/L BUN 33 H (6-20) mg/dL Creatinine 0.99 (0.60-1.20) mg/dL Glucose 218 H (70-105) mg/dL Calcium 8.2 L (8.6-10.3) mg/dL Adrenal panel 02/12/19 Range/Units 04:53 Sodium 136 (136-145) mEq/L Potassium 4.2 (3.5-5.1) mEq/L Chloride 107 (98-107) mEq/L Carbon Dioxide 23 (23-29) mEq/L BUN 33 H (6-20) mg/dL Creatinine 0.99 (0.60-1.20) mg/dL Glucose 218 H (70-105) mg/dL Calcium 8.2 L (8.6-10.3) mg/dL Consult Discharge Plan - Plan Instructions: Urinary Tract Infection in Women (DC), Sepsis (DC), Chronic Hypertension (DC) Referrals: Jai Clarke Jr, MD [Primary Care Provider] - 02/19/19 11:30 am (Follow up as scheduled. ) Yaya Guillen [Partnered Physician] - 02/18/19 10:30 am (Follow up as scheduled. ) Prescriptions: Amoxicillin/Clavulanate [Augmentin] 875 mg PO BIDWM 7 Days #14 tablet Ciprofloxacin [Cipro] 500 mg PO BID 7 Days #14 tablet OxyCODONE/APAP 5/325 [Percocet 5/325 MG] 1 each PO Q12H PRN 5 Days #10 tablet PRN Reason: Pain <Yaya Guillen - Last Filed: 02/12/19 14:15> Date of Encounter: 02/12/19 - Assessment and Plan (1) Nephrolithiasis Current Visit: Yes Status: Acute Assessment and plan: Patient seen and examined independently. I am in agreement with the assessment and plan as outlined by our Urologic Surgery Department Physician Truck Repair Service Estimator, Иван. Discussed details of upcoming procedure with patient. She is agreeab le to proceed next Friday for definitive surgical management of stone via ureteroscopy laser lithotripsy. She will remain on aspirin. She will hold anticoagulation as instructed by cardiology. Okay for discharge from urology standpoint. Home on antibiotics through date of surgery. (2) Pyelonephritis Current Visit: Yes Status: Acute (3) Right flank pain Current Visit: Yes Status: Acute Objective Initial Vital Signs Temp Pulse Resp BP Pulse Ox 99.1 F 84 16 107/59 98 02/09/19 17:18 02/09/19 17:18 02/09/19 17:18 02/09/19 17:18 02/09/19 17:18 - Labs 02/12/19 04:53 02/12/19 04:53 Diabetes panel 02/12/19 Range/Units 04:53 Sodium 136 (136-145) mEq/L Potassium 4.2 (3.5-5.1) mEq/L Chloride 107 (98-107) mEq/L Carbon Dioxide 23 (23-29) mEq/L BUN 33 H (6-20) mg/dL Creatinine 0.99 (0.60-1.20) mg/dL Glucose 218 H (70-105) mg/dL Calcium 8.2 L (8.6-10.3) mg/dL Calcium panel 02/12/19 Range/Units 04:53 Calcium 8.2 L (8.6-10.3) mg/dL Pituitary panel 02/12/19 Range/Units 04:53 Sodium 136 (136-145) mEq/L Potassium 4.2 (3.5-5.1) mEq/L Chloride 107 (98-107) mEq/L Carbon Dioxide 23 (23-29) mEq/L BUN 33 H (6-20) mg/dL Creatinine 0.99 (0.60-1.20) mg/dL Glucose 218 H (70-105) mg/dL Calcium 8.2 L (8.6-10.3) mg/dL Adrenal panel 02/12/19 Range/Units 04:53 Sodium 136 (136-145) mEq/L Potassium 4.2 (3.5-5.1) mEq/L Chloride 107 (98-107) mEq/L Carbon Dioxide 23 (23-29) mEq/L BUN 33 H (6-20) mg/dL Creatinine 0.99 (0.60-1.20) mg/dL Glucose 218 H (70-105) mg/dL Calcium 8.2 L (8.6-10.3) mg/dL
== END 2019-02-12 14:35 | disposition home or self-care (01) | DRG 720 ==
LOC: EMEROOARM 17:16 → 3ANU 17:16 → SUATTDRO 21:32 → 3ANU 21:54
PROVIDERS: ADMIT Internal Medicine Nephrology; ATTEND Internal Medicine

== ENCOUNTER 2019-02-23 08:04 | Observation (INO) ==
[2019-02-23 08:54] LABS: Bilirubin,Urine Negative (Negative); Blood,Urine Large (Negative); Clarity,Urine Cloudy (Clear); Color,Urine Yellow (Yellow); Glucose,Urine (UA) Normal (Normal); Ketones,Urine Negative (Negative); Leukocyte Esterase,Urine Large (Negative); Nitrite,Urine Negative (Negative); PH,Urine 5.5 pH Units (5.0-8.0); Protein,Urine 100 mg/dL (Neg-Trace); Specific Gravity,Urine 1.019 (1.010-1.025); Urobilinogen,Urine Normal (Normal)
[2019-02-23 08:59] LABS: Bacteria,Urine None Seen per hpf (None-Few); Hyaline Casts,Urine None Seen per lpf (None-Few); RBC,Urine TNTC per hpf (0-3); Squamous Epithelial Cell,Urine Many per lpf (None-Few); WBC,Urine TNTC per hpf (0-3)
[2019-02-23 09:03] LABS: Basophils # 0.1 K/mcL (0.0-0.2); Basophils % 0.6 %; Eosinophils # 0.3 K/mcL (0.0-0.6); Hemoglobin 9.8 g/dL (11.5-15.4); Immature Granulocytes % 0.6 % (0-4); Lymphocytes # 1.1 K/mcL (0.6-4.6); Lymphocytes % 13.4 %; Mean Corpuscular HGB Conc 32.7 g/dL (31.6-35.5); Mean Corpuscular Hemoglobin 30.1 pg (28.0-33.3); Mean Platelet Volume 9.2 fL (9.4-12.4); Monocytes # 0.6 K/mcL (0.0-1.3); Monocytes % 6.9 %; Neutrophils # 6.3 K/mcL (1.6-8.9); Platelet Count 350 K/mcL (140-400); Red Blood Count 3.26 M/mcL (3.82-4.97); Red Cell Distribution Width 12.9 % (11.5-14.5); Segmented Neutrophils % 75.5 %; White Blood Count 8.4 K/mcL (4.3-11.1)
[2019-02-23 09:25] LABS: BUN/Creatinine Ratio 19 (6-26); Blood Urea Nitrogen 19 mg/dL (6-20); Calcium 8.6 mg/dL (8.6-10.3); Carbon Dioxide 24 mEq/L (23-29); Chloride 103 mEq/L (98-107); Glucose 134 mg/dL (70-105); Osmolality,Calculated 292 (280-300); Potassium 3.5 mEq/L (3.5-5.1); Sodium 139 mEq/L (136-145); Troponin I < 0.03 ng/mL (< 0.04); eGFR For African Americans > 60 (> 60); eGFR For Non-African Americans > 60 (> 60)
--- NOTE | 2019-02-23 09:26 | Emergency Department Note ---
Disposition Clinical Impression: Malaise Fatigue Qualifiers: Fatigue type: unspecified Qualified Code(s): R53.83 - Other fatigue Disposition: Home, Self-Care Condition: Fair Time of Disposition: 09:28 General Adult HPI - General Chief complaint: ED Weakness Stated complaint: Excessive Tiredness Time Seen by Provider: 02/23/19 08:07 Source: patient Limitations: language barrier Nursing Notes Reviewed: Yes Vital Signs Reviewed: Yes - History of Present Illness HPI Narrative: 48-year-old female presents emergency Department with concerns of increased fatigue. Patient reports symptoms have been present over the past 2-3 days. This was especially worse yesterday, she presents emergency department for further evaluation of her fatigue and her blood pressure. Patient noted her blood pressure to be 96 systolic yesterday area she takes carvedilol and lisinopril for treatment of hypertension. Patient denies chest pain, shortness of breath, palpitations, syncope. She has a history of recent cardiac disease and had one stent placed 6 months ago. She recently has been treated for urinary tract infection with ciprofloxacin and had a kidney stone removed by Dr. Guillen that was 10 mm in size. Patient reports hematuria over the past few days and notes that her urine has been cloudy. Patient denies recent fever. Pain Scale: 0 - Related Data Home Medications Medication Instructions Recorded Confirmed ALPRAZolam [Xanax 1 MG Tablet] 1 mg PO HS PRN 05/24/18 02/23/19 Aspirin 81 mg PO DAILY 08/21/18 02/23/19 Atorvastatin Calcium [Lipitor] 80 mg PO HS 09/24/18 02/23/19 Carvedilol [Coreg] 6.25 mg PO BID 09/24/18 02/23/19 Lisinopril 5 mg PO DAILY 09/24/18 02/23/19 Nitroglycerin [Nitrostat] 0.4 mg SL PRN PRN 09/24/18 02/23/19 Ticagrelor [Brilinta] 90 mg PO BID 09/24/18 02/23/19 Previous Rx's Medication Instructions Recorded Metformin HCl 500 mg PO BID #60 tablet 05/24/18 Ciprofloxacin [Cipro] 500 mg PO BID 7 Days #14 tablet 02/12/19 OxyCODONE/APAP 5/325 [Percocet 1 each PO Q12H PRN 5 Days #10 02/12/19 5/325 MG] tablet Ciprofloxacin [Cipro] 500 mg PO BID 3 Days #6 tablet 02/17/19 Oxybutynin [Ditropan] 5 mg PO TID PRN 7 Days #20 tablet 02/17/19 Oxycodone HCl/Acetaminophen 1 each PO Q4-6H PRN 3 Days #10 02/17/19 [Percocet 5-325 mg Tablet] tablet Tamsulosin [Flomax] 0.4 mg PO DAILY 10 Days #10 02/17/19 cap.er.24h Allergies Allergy/AdvReac Type Severity Reaction Status Date / Time Amoxicillin [From Augmentin] Allergy Rash Verified 02/23/19 08:08 clavulanic acid Allergy Rash Verified 02/23/19 08:08 [From Augmentin] Penicillins [PCN] AdvReac Gastrointestinal Verified 02/23/19 08:08 Upset/nausea/vomiting All systems ED: reviewed and negative except as stated. Review of Systems: As Per HPI Past Medical History - Past Medical History Attestation: Yes The following information was validated with the patient. Source: patient Medical history: Reports: coronary artery disease, diabetes, hyperlipidemia, hypertension, kidney stones, myocardial infarction Surgical history: Reports: angioplasty/stent, , SANDRA/BSO Psychiatric history: Reports: anxiety CASE MONITOR history: Reports: no CASE MONITOR history - Social History Smoking Status: Former smoker Smokeless Tobacco Status: No Alcohol use: Reports: rarely Drug use: Reports: none Physical Exam General: Alert and in no acute distress Skin: Warm, dry, intact Head: Normocephalic and atraumatic Neck: Supple, trachea midline and no tenderness Cardiovascular: RRR, no murmur, normal perfusion Respiratory: CTAB, no wheezing, cough, or respiratory distress Musculoskeletal: Normal strength, no tenderness, swelling or deformity GI: Soft, nontender, nondistended. Bowel sounds present Neuro: A&O to person, place, time and situation. No focal deficits noted on exam Psychiatric: cooperative and appropriate mood and affect. - General Limitations: language barrier General appearance: alert, in no apparent distress Course Vital Signs Temperature 97.8 F 02/23/19 08:06 Pulse Rate 70 02/23/19 08:06 Respiratory Rate 16 02/23/19 08:06 Blood Pressure 104/66 02/23/19 08:06 O2 Sat by Pulse Oximetry 99 02/23/19 08:06 Temperature 98.2 F 02/23/19 17:03 Pulse Rate 80 02/23/19 17:03 Respiratory Rate 17 02/23/19 17:03 Blood Pressure 122/73 02/23/19 17:03 O2 Sat by Pulse Oximetry 96 02/23/19 17:03 Oxygen Delivery Oxygen Delivery Room Air Medical Decision Making - MDM Narrative Medical decision making narrative: Patient laboratory evaluation does not have significant abnormality. She does not have an obvious urinary tract infection on exam. Patient is concerned about her weakness and fatigue. She does have a history of cardiac disease in the past. Patient will be admitted for further evaluation of her weakness and fatigue as a possible atypical presentation of ACS. - Medical Records Medical records reviewed: Yes I reviewed the patient's medical records. - Lab Data Lab results reviewed: Yes I reviewed the patient's lab results. Result diagrams: 02/23/19 08:30 02/23/19 08:30 Lab Results 02/23/19 02/23/19 02/23/19 Range/Units 08:26 08:26 08:30 WBC 8.4 (4.3-11.1) K/mcL RBC 3.26 L (3.82-4.97) M/mcL Hgb 9.8 L (11.5-15.4) g/dL Hct 30.0 L (35.3-44.9) % MCV 92.0 (83.0-100.0) fL MCH 30.1 (28.0-33.3) pg MCHC 32.7 (31.6-35.5) g/dL RDW 12.9 (11.5-14.5) % Plt Count 350 (140-400) K/mcL MPV 9.2 L (9.4-12.4) fL Immature Gran % 0.6 (0-4) % Seg Neutrophils % 75.5 % Lymphocytes % 13.4 % Monocytes % 6.9 % Eosinophils % 3.0 % Basophils % 0.6 % Neutrophils # 6.3 (1.6-8.9) K/mcL Lymphocytes # 1.1 (0.6-4.6) K/mcL Monocytes # 0.6 (0.0-1.3) K/mcL Eosinophils # 0.3 (0.0-0.6) K/mcL Basophils # 0.1 (0.0-0.2) K/mcL Sodium (136-145) mEq/L Potassium (3.5-5.1) mEq/L Chloride (98-107) mEq/L Carbon Dioxide (23-29) mEq/L BUN (6-20) mg/dL Creatinine (0.60-1.20) mg/dL Est GFR ( Amer) (> 60) Est GFR (Non-Af Amer) (> 60) BUN/Creatinine Ratio (6-26) Glucose (70-105) mg/dL Calculated Osmolality (280-300) Calcium (8.6-10.3) mg/dL Troponin I (< 0.04) ng/mL Urine Color Yellow (Yellow) Urine Clarity Cloudy A (Clear) Urine pH 5.5 (5.0-8.0) pH Units Ur Specific [place] 1.019 (1.010-1.025) Urine Protein 100 H (Neg-Trace) mg/dL Urine Glucose (UA) Normal (Normal) mg/dL Urine Ketones Negative (Negative) mg/dL Urine Blood Large H (Negative) Urine Nitrite Negative (Negative) Urine Bilirubin Negative (Negative) Urine Urobilinogen Normal (Normal) mg/dL Ur Leukocyte Esterase Large H (Negative) Urine Microscopic RBC TNTC H (0-3) per hpf Urine Microscopic WBC TNTC H (0-3) per hpf Ur Squamous Epith Cells Many H (None-Few) per lpf Urine Bacteria None Seen (None-Few) per hpf Hyaline Casts None Seen (None-Few) per lpf Ur Culture Indicated? YES A (NO) Urine Test Negative (Negative) 02/23/19 Range/Units 08:30 WBC (4.3-11.1) K/mcL RBC (3.82-4.97) M/mcL Hgb (11.5-15.4) g/dL Hct (35.3-44.9) % MCV (83.0-100.0) fL MCH (28.0-33.3) pg MCHC (31.6-35.5) g/dL RDW (11.5-14.5) % Plt Count (140-400) K/mcL MPV (9.4-12.4) fL Immature Gran % (0-4) % Seg Neutrophils % % Lymphocytes % % Monocytes % % Eosinophils % % Basophils % % Neutrophils # (1.6-8.9) K/mcL Lymphocytes # (0.6-4.6) K/mcL Monocytes # (0.0-1.3) K/mcL Eosinophils # (0.0-0.6) K/mcL Basophils # (0.0-0.2) K/mcL Sodium 139 (136-145) mEq/L Potassium 3.5 (3.5-5.1) mEq/L Chloride 103 (98-107) mEq/L Carbon Dioxide 24 (23-29) mEq/L BUN 19 (6-20) mg/dL Creatinine 0.98 (0.60-1.20) mg/dL Est GFR ( Amer) > 60 (> 60) Est GFR (Non-Af Amer) > 60 (> 60) BUN/Creatinine Ratio 19 (6-26) Glucose 134 H (70-105) mg/dL Calculated Osmolality 292 (280-300) Calcium 8.6 (8.6-10.3) mg/dL Troponin I < 0.03 (< 0.04) ng/mL Urine Color (Yellow) Urine Clarity (Clear) Urine pH (5.0-8.0) pH Units Ur Specific [place] (1.010-1.025) Urine Protein (Neg-Trace) mg/dL Urine Glucose (UA) (Normal) mg/dL Urine Ketones (Negative) mg/dL Urine Blood (Negative) Urine Nitrite (Negative) Urine Bilirubin (Negative) Urine Urobilinogen (Normal) mg/dL Ur Leukocyte Esterase (Negative) Urine Microscopic RBC (0-3) per hpf Urine Microscopic WBC (0-3) per hpf Ur Squamous Epith Cells (None-Few) per lpf Urine Bacteria (None-Few) per hpf Hyaline Casts (None-Few) per lpf Ur Culture Indicated? (NO) Urine Test (Negative) - Radiology Data Radiology results reviewed: Yes I reviewed the patient's radiology results. - EKG Data EKG #1 EKG attestation: Yes I reviewed and interpreted this EKG. EKG results narrative: Normal sinus rhythm with a rate of 64 without evidence of STEMI or other dysrhythmia. QTC of 421, QRS 95
[2019-02-23] MEDS ORDERED: 0.9 % Sodium Chloride 1,000 ML IVC ONE (09:57)
[2019-02-23] MEDS ORDERED: MOM Conc 10 ML UD.LIQ PO PRN (11:34)
[2019-02-23] MEDS ORDERED: traMADol 50 MG TABLET PO PRN (11:34)
[2019-02-23] MEDS ORDERED: *HR* Promethazine 25 MG/ML VIAL IVP PRN (11:34)
[2019-02-23] MEDS ORDERED: Naloxone 0.4 MG/ML INJ IVP PRN (11:34)
[2019-02-23] MEDS ORDERED: Acetaminophen 325 MG TABLET PO PRN (11:34)
[2019-02-23] MEDS ORDERED: Ondansetron 4 MG/2 ML VIAL IVP PRN (11:34)
[2019-02-23] MEDS ORDERED: Mag Hydrox/Al Hydrox/Simeth 30 ML UDC PO PRN (11:34)
[2019-02-23] MEDS ORDERED: Nitroglycerin 0.4 MG TAB.SUBL SL PRN (11:36)
[2019-02-23] MEDS ORDERED: ALPRAZolam 1 MG TABLET PO PRN (11:36)
[2019-02-23] MEDS ORDERED: *HR* OxyCODONE/APAP 5/325 TABLET PO PRN (11:36)
--- NOTE | 2019-02-23 11:41 | Internal Med History&Physical ---
Date of Encounter: 02/23/19 Time of Encounter: 11:41 Internal Medicine - H&P: HPI Admitted From: Home Plans for Post Hospital Care: Home History of present illness: Ms. Harrington is a 48 year old female presents emergency Department with concerns of increased fatigue with chest pressure. He was diagnosed with CAD about 6 months ago with one stent placement. She currently takes aspirin and Brilinta. She also reported bilateral kidney stone, lithotripsy was performed about one week ago and a JJ stent was placed on right-sided ureter. She has been taking oral Cipro for UTI since 02/09. She was discharged home on 02/17. She reported starting having chest pressure and lack of energy since the past Friday. She also reported having taken pain medicine because of kidney stone. Her blood pressure was notably low as she checks her blood pressure yesterday, the systolic blood pressure was 96. She currently takes carvedilol and lisinopril. She noted her urine has been cloudy with hematuria. But she denies fever, chills, night sweats, she reported absence of dysuria, urgency, or frequency. In the ED, her blood pressure was soft with systolic BP around 100-110. UA showed large amount of WBC and RBC. X-ray showed no acute pulmonary abnormalities, bilateral nephrolithiasis with right ureteral stent. She was admitted for further evaluation. CODE STATUS will be full code. Past Med Surg Social Fam HX - Past Medical History Medical history: coronary artery disease, diabetes, hyperlipidemia, hypertension, kidney stones, myocardial infarction Additional medical history: diabetes type 2, x 2. Psychiatric history: anxiety - Past Surgical History Surgical History: angioplasty/stent, , SANDRA/BSO Additional surgical history: TMJ sx. ureteral stent placement - Social History Smoking Status: Former smoker Smokeless Tobacco Status: No Alcohol use: rarely Drug use: none - Family History Mother Living Status: Still Living Hx Family Cardiac Disorders: Yes Hx Family Respiratory Disorders: No Hx Family Cancer: No Hx Family GI Disorders: No Hx Family Endocrine Disorder: No Hx Family Neuromuscular Disorders: No Hx Family Neurologic Disorders: No Hx Family HEENT Disorders: No Hx Family Autoimmune Disorders: No Brother Hx Family Cardiac Disorders: Yes Father Living Status: Still Living Hx Family Cardiac Disorders: Yes Hx Family Cancer: Yes (colon) Internal Medicine - H&P: Meds ALPRAZolam [Xanax 1 MG Tablet] 1 mg PO HS PRN 05/24/18 [History] Metformin HCl 500 mg PO BID #60 tablet 05/24/18 [Rx] Aspirin 81 mg PO DAILY 08/21/18 [History] Atorvastatin Calcium [Lipitor] 80 mg PO HS 09/24/18 [History] Carvedilol [Coreg] 6.25 mg PO BID 09/24/18 [History] Lisinopril 5 mg PO DAILY 09/24/18 [History] Nitroglycerin [Nitrostat] 0.4 mg SL PRN PRN 09/24/18 [History] Ticagrelor [Brilinta] 90 mg PO BID 09/24/18 [History] Ciprofloxacin [Cipro] 500 mg PO BID 7 Days #14 tablet 02/12/19 [Rx] OxyCODONE/APAP 5/325 [Percocet 5/325 MG] 1 each PO Q12H PRN 5 Days #10 tablet 02/12/19 [Rx] Ciprofloxacin [Cipro] 500 mg PO BID 3 Days #6 tablet 02/17/19 [Rx] Oxybutynin [Ditropan] 5 mg PO TID PRN 7 Days #20 tablet 02/17/19 [Rx] Oxycodone HCl/Acetaminophen [Percocet 5-325 mg Tablet] 1 each PO Q4-6H PRN 3 Days #10 tablet 02/17/19 [Rx] Tamsulosin [Flomax] 0.4 mg PO DAILY 10 Days #10 cap.er.24h 02/17/19 [Rx] Allergy/AdvReac Type Severity Reaction Status Date / Time Amoxicillin [From Augmentin] Allergy Rash Verified 02/23/19 08:08 clavulanic acid Allergy Rash Verified 02/23/19 08:08 [From Augmentin] Penicillins [PCN] AdvReac Gastrointestinal Verified 02/23/19 08:08 Upset/nausea/vomiting All Systems PM: A 10-system review of systems was performed and is negative for pertinent findings except as documented above in the HPI. Review of systems: REVIEW OF SYSTEMS: CONSTITUTIONAL: No weight loss, fever, chills, weakness or fatigue. HEENT: Eyes: No visual loss, blurred vision, double vision or yellow sclerae. Ears, Nose, Throat: No hearing loss, sneezing, congestion, runny nose or sore throat. SKIN: No rash or itching. CARDIOVASCULAR: No chest pain, chest pressure or chest discomfort. No palpitations or edema. RESPIRATORY: No shortness of breath, cough or sputum. GASTROINTESTINAL: No anorexia, nausea, vomiting or diarrhea. No abdominal pain or blood. GENITOURINARY: see HPI. NEUROLOGICAL: No headache, dizziness, syncope, paralysis, ataxia, numbness or tingling in the extremities. No change in bowel or bladder control. MUSCULOSKELETAL: No muscle, back pain, joint pain or stiffness. HEMATOLOGIC: No anemia, bleeding or bruising. LYMPHATICS: No enlarged nodes. No history of splenectomy. PSYCHIATRIC: No history of depression or anxiety. ENDOCRINOLOGIC: No reports of sweating, cold or heat intolerance. No polyuria or polydipsia. - Constitutional Vitals: Temp Pulse Resp BP Pulse Ox 97.8 F 78 18 100/71 99 02/23/19 08:06 02/23/19 11:30 02/23/19 11:30 02/23/19 11:30 02/23/19 11:30 General appearance: Present: A&O X 3 Exam: PHYSICAL EXAMINATION: GENERAL APPEARANCE: The patient is alert, oriented and in no acute distress. HEENT: Head is normocephalic. The sinuses are nontender. Pupils are equal and reactive. The nares are patent. Oropharynx clear without lesions. NECK: Supple without lymphadenopathy. HEART: Regular rate and rhythm. LUNGS: No crackles or wheezes are heard. ABDOMEN: Soft, nontender, nondistended with good bowel sounds heard. Inguinal area is normal. EXTREMITIES: Without cyanosis, clubbing or edema. NEUROLOGICAL: Gross nonfocal. SKIN: Warm and dry without any rash. Internal Med - H&P Results - Labs CBC & Chem 7: 02/23/19 08:30 02/23/19 08:30 Labs: Short CBC 02/23/19 Range/Units 08:30 WBC 8.4 (4.3-11.1) K/mcL Hgb 9.8 L (11.5-15.4) g/dL Hct 30.0 L (35.3-44.9) % Plt Count 350 (140-400) K/mcL Neutrophils # 6.3 (1.6-8.9) K/mcL BMP 02/23/19 08:30 Sodium 139 Potassium 3.5 Chloride 103 Carbon Dioxide 24 BUN 19 Creatinine 0.98 Glucose 134 H Calcium 8.6 Cardiac Enzymes 02/23/19 Range/Units 08:30 Troponin I < 0.03 (< 0.04) ng/mL Urine 02/23/19 Range/Units 08:26 Urine Color Yellow (Yellow) Urine Clarity Cloudy A (Clear) Urine pH 5.5 (5.0-8.0) pH Units Ur Specific [place] 1.019 (1.010-1.025) Urine Protein 100 H (Neg-Trace) mg/dL Urine Glucose (UA) Normal (Normal) mg/dL - Impressions ITS Impressions Chest X-Ray 02/23/19 08:43 IMPRESSION: No evidence for acute cardiopulmonary process. Bilateral renal stones. Right ureteral stent. D/ / Gilbert Bueno MD / Gilbert Bueno MD Interpreting Provider: Gilbert Bueno MD - Assessment and Plan (1) Fatigue Current Visit: Yes Status: Acute Assessment and plan: She recently was hospitalized because of bilateral nephrolithiasis, status post right ureteral stent placement, she also had UTI and was placed on oral antibiotics since 02/09. She reported taking significant amount of pain medicine due to renal colic. At this point, the etiology is likely physical deconditioning due to recent illness and pain medication usage. UA showed a large amount of WBC and RBC, this is likely secondary to recent urological procedures and ureteral stent placement, patient also has been on oral antibiotics for almost 2 weeks, therefore the infection is less likely, patient received 1 dose of Rocephin, discontinue IV antibiotics, follow urine culture. Urology consult, appreciate help. Qualifiers: Fatigue type: unspecified Qualified Code(s): R53.83 - Other fatigue (2) Chest pain Current Visit: Yes Status: Acute Assessment and plan: 48-year-old female with history of CAD status post stent placement 6 months ago presented with left-sided chest pressure. She takes aspirin and Brilinta at home. Set of troponin was negative. We will continue cycling, telemetry monitoring, EKG as needed. Echocardiogram was unremarkable. Stress test was ordered. Cardiology consult, appreciate help. Qualifiers: Chest pain type: chest pain due to myocardial ischemia Ischemic chest pain type: stable angina pectoris Qualified Code(s): I20.8 - Other forms of angina pectoris (3) Diabetes mellitus Current Visit: No Status: Chronic Assessment and plan: Hold oral agent, started patient on insulin sliding scale. Qualifiers: Diabetes mellitus type: type 2 Diabetes mellitus complication status: with circulatory complication Qualified Code(s): E11.51 - Type 2 diabetes mellitus with diabetic peripheral angiopathy without gangrene; Z79.4 - FPC (current) use of insulin (4) Hypertension Current Visit: No Status: Chronic Assessment and plan: BP was soft, will hold lisinopril for now, continue carvedilol. Continue monitoring blood pressure. Qualifiers: Hypertension type: unspecified Qualified Code(s): I10 - Essential (primary) hypertension (5) CAD (coronary artery disease) Current Visit: No Status: Acute Assessment and plan: We will continue aspirin and Brilinta. Echo was unremarkable. Stress test was ordered. Cardiology following, appreciate help. Qualifiers: Coronary Disease-Associated Artery/Lesion type: hoh artery [place] vs. transplanted heart: hoh heart Associated angina: angina presence unspecified Qualified Code(s): I25.10 - Atherosclerotic heart disease of hoh coronary artery without angina pectoris (6) Nephrolithiasis Current Visit: No Status: Acute Assessment and plan: Recent lithotripsy with right-sided ureteral stent placement. She requested urology consult, we will accommodate. (7) DVT prophylaxis Current Visit: No Status: Acute Assessment and plan: Heparin subcutaneous. - Time Spent With Patient Total time spent is greater than 50% in coordination of care (as documented) at patient's floor/unit and/or counseling patient: Greater than 35 minutes
[2019-02-23] MEDS ORDERED: D5% in Water 1,000 ML IVC PRN (11:42)
[2019-02-23] MEDS ORDERED: Dextrose Gel 15 GM/37.5 ML TUBE PO PRN ×2 (11:42)
[2019-02-23] MEDS ORDERED: *HR* Dextrose 50 % in Water (Syg) 50 ML SYRINGE IVP PRN (11:42)
[2019-02-23] MEDS ORDERED: cefTRIAXone 2,000 MG in 0.9 % Sodium Chloride Mini Bag 100 ML IVPB SCH (12:00)
[2019-02-23] MEDS: Insulin LISPRO 300 UNITS/3 ML VIAL SQ SCH (17:43)
[2019-02-23] MEDS: *HR* Heparin 5,000 UNIT/ML VIAL SQ SCH (17:45)
[2019-02-23] MEDS ORDERED: Insulin LISPRO 300 UNITS/3 ML VIAL SQ SCH (21:00)
[2019-02-23] MEDS: *HR* Ticagrelor 90 MG TABLET PO SCH (21:09)
--- NOTE | 2019-02-23 23:37 | Electrocardiograph Report ---
[place] [facility] Test Date: 2019-02-23 Pat Name: Autumn Harrington Department: EXAM2 Room: 2A39 Gender: F Director College: : 1970 Requested By: Harjinder Lpoez Order Number: [id number] Reading MD: Leopoldo Rice Measurements Intervals [place] Rate: 64 P: 63 NH: 140 QRS: 46 QRSD: 95 T: 56 QT: 408 QTc: 421 Interpretive Statements Sinus rhythm Electronically Signed On 02-23-2019 23:35:31 EDT by Leopoldo Rice
[2019-02-24] MEDS: *HR* Heparin 5,000 UNIT/ML VIAL SQ SCH (05:17)
[2019-02-24 05:56] LABS: Hematocrit 28.9 % (35.3-44.9); Hemoglobin 9.4 g/dL (11.5-15.4); Mean Corpuscular HGB Conc 32.5 g/dL (31.6-35.5); Mean Corpuscular Hemoglobin 29.3 pg (28.0-33.3); Mean Platelet Volume 9.6 fL (9.4-12.4); Platelet Count 340 K/mcL (140-400); Red Blood Count 3.21 M/mcL (3.82-4.97); Red Cell Distribution Width 12.8 % (11.5-14.5); White Blood Count 7.6 K/mcL (4.3-11.1)
[2019-02-24 06:18] LABS: Alanine Aminotransferase 4 Units/L (7-52); Albumin/Globulin Ratio 1.1 (1.1-2.2); Alkaline Phosphatase 60 Units/L (34-104); Aspartate Amino Transferase 8 Units/L (13-39); BUN/Creatinine Ratio 16 (6-26); Bilirubin,Total 0.3 mg/dL (0.3-1.0); Blood Urea Nitrogen 15 mg/dL (6-20); Calcium 8.2 mg/dL (8.6-10.3); Carbon Dioxide 24 mEq/L (23-29); Chloride 105 mEq/L (98-107); Chol/HDL Ratio 3.5 (0-4.9); Cholesterol 88 mg/dL (< 200); Globulin 2.7 g/dL (2.4-3.5); Glucose 240 mg/dL (70-105); HDL Cholesterol 25 mg/dL (40-59); LDL Cholesterol,Calculated 45 mg/dL (0-99); Magnesium 1.4 mg/dL (1.6-2.6); Osmolality,Calculated 297 (280-300); Phosphorous 2.8 mg/dL (2.7-4.5); Potassium 3.5 mEq/L (3.5-5.1); Sodium 139 mEq/L (136-145); Total Protein 5.7 g/dL (6.4-8.9); Triglycerides 90 mg/dL (< 150); eGFR For African Americans > 60 (> 60); eGFR For Non-African Americans > 60 (> 60)
[2019-02-24 06:27] LABS: Thyroid Stimulating Hormone 0.824 mcIU/mL (0.340-5.600)
[2019-02-24] MEDS ORDERED: Aspirin 81 MG TAB.CHEW PO SCH (09:00)
[2019-02-24] MEDS: *HR* Ticagrelor 90 MG TABLET PO SCH (10:11)
[2019-02-24] MEDS: Insulin LISPRO 300 UNITS/3 ML VIAL SQ SCH ×2 (10:11→13:00)
--- NOTE | 2019-02-24 11:19 | Urology - Consult Note ---
Date of Encounter: 02/24/19 Time of Encounter: 11:17 - Assessment and Plan (1) Bilateral kidney stones Current Visit: Yes Status: Acute Assessment and plan: Patient status post right ureteroscopic stone extraction. Scheduled next week for stent removal. Patient will discuss with Dr. Guillen possible treatment or observation of left-sided stones. Not causing issues at this time. Please call with any questions. (2) Urinary frequency Current Visit: Yes Status: Acute Assessment and plan: From stent in place. Recommend to hold Flomax at this time as this could cause lower blood pressure. (3) Dysuria Current Visit: Yes Status: Acute Assessment and plan: Urine culture negative. No indication for infection. No need for continued a ntibiotics from urology standpoint. (4) Fatigue Current Visit: Yes Status: Acute Assessment and plan: Unsure of etiology. Could be related to chronic discomfort from stent. Stent scheduled to be removed next week. Qualifiers: Fatigue type: unspecified Qualified Code(s): R53.83 - Other fatigue Urology CN:HPI Consult date: 02/24/19 Reason for consult Urology: Gross Hematuria Requesting physician: Armida Ramos History of present illness: Luc is a 48-year-old female known to the urology service for recent right ureteroscopic stone extraction by Dr. Guillen. Patient also with UTI at that time. Patient with right ureteral stent in place at this time. Patient also with left-sided kidney stones. No significant left flank pain. Patient has been having some urinary urgency and this was initially controlled with Flomax. Patient states he does have some dysuria but this is mild at this time. No current nausea or vomiting. Patient with some hematuria off and on. Patient scheduled for stent removal next week. Past Med Surg Social Fam HX - Past Medical History Medical history: coronary artery disease, diabetes, hyperlipidemia, hypertension, kidney stones, myocardial infarction Additional medical history: diabetes type 2, x 2. Psychiatric history: anxiety - Past Surgical History Surgical History: angioplasty/stent, , SANDRA/BSO Additional surgical history: TMJ sx. ureteral stent placement - Social History Smoking Status: Former smoker Smokeless Tobacco Status: No Alcohol use: rarely Drug use: none - Family History Mother Living Status: Still Living Hx Family Cardiac Disorders: Yes Hx Family Respiratory Disorders: No Hx Family Cancer: No Hx Family GI Disorders: No Hx Family Endocrine Disorder: No Hx Family Neuromuscular Disorders: No Hx Family Neurologic Disorders: No Hx Family HEENT Disorders: No Hx Family Autoimmune Disorders: No Brother Hx Family Cardiac Disorders: Yes Father Adopted: No Living Status: Still Living Hx Family Cardiac Disorders: Yes Hx Family Respiratory Disorders: No Hx Family Cancer: Yes (colon) Medications and Allergies ALPRAZolam [Xanax 1 MG Tablet] 1 mg PO HS PRN 05/24/18 [History] Metformin HCl 500 mg PO BID #60 tablet 05/24/18 [Rx] Aspirin 81 mg PO DAILY 08/21/18 [History] Atorvastatin Calcium [Lipitor] 80 mg PO HS 09/24/18 [History] Carvedilol [Coreg] 6.25 mg PO BID 09/24/18 [History] Lisinopril 5 mg PO DAILY 09/24/18 [History] Nitroglycerin [Nitrostat] 0.4 mg SL PRN PRN 09/24/18 [History] Ticagrelor [Brilinta] 90 mg PO BID 09/24/18 [History] Oxybutynin [Ditropan] 5 mg PO TID PRN 7 Days #20 tablet 02/17/19 [Rx] Tamsulosin [Flomax] 0.4 mg PO DAILY 10 Days #10 cap.er.24h 02/17/19 [Rx] Allergy/AdvReac Type Severity Reaction Status Date / Time Amoxicillin [From Augmentin] Allergy Rash Verified 02/24/19 09:16 clavulanic acid Allergy Rash Verified 02/24/19 09:16 [From Augmentin] Penicillins [PCN] AdvReac Gastrointestinal Verified 02/24/19 09:16 Upset/nausea/vomiting Review of Systems - Constitutional no chills, no fever(s) - EENT Nose, mouth and throat: no dizziness - Cardiovascular no chest pain - Respiratory no cough - Gastrointestinal no abdominal pain, no nausea, no vomiting - Genitourinary Genitourinary: as per HPI - Musculoskeletal no back pain - Integumentary no erythema - Neurological no confusion, no sensory deficit - Psychiatric no confusion - Hematologic/Lymphatic no lymphadenopathy Exam Initial Vital Signs Temp Pulse Resp BP Pulse Ox 97.8 F 70 16 104/66 99 02/23/19 08:06 02/23/19 08:06 02/23/19 08:06 02/23/19 08:06 02/23/19 08:06 General/Neuological: alert and oriented x 3 Eyes: normal pupils, non-icteric Neck: no lymphadenopathy noted, supple to touch Cardiovascular: RRR, no murmurs, no JVD Respiratory: normal respiratory effort, clear bilaterally ABD: soft, nontender, no masses palpated, good bowel sounds Back: no pain on percussion bilaterally Skin: no rashes noted Musculoskeletal: normal gait, FROMx4 Urology Results - Labs 02/24/19 04:27 02/24/19 04:27 Abnormal lab results RBC 3.21 M/mcL (3.82-4.97) L 02/24/19 04:27 Hgb 9.4 g/dL (11.5-15.4) L 02/24/19 04:27 Hct 28.9 % (35.3-44.9) L 02/24/19 04:27 MPV 9.2 fL (9.4-12.4) L 02/23/19 08:30 Glucose 240 mg/dL (70-105) H 02/24/19 04:27 POC Glucose 155 mg/dL (70-99) H 02/23/19 17:03 Calcium 8.2 mg/dL (8.6-10.3) L 02/24/19 04:27 Magnesium 1.4 mg/dL (1.6-2.6) L 02/24/19 04:27 AST 8 Units/L (13-39) L 02/24/19 04:27 ALT 4 Units/L (7-52) L 02/24/19 04:27 Serum Total Protein 5.7 g/dL (6.4-8.9) L 02/24/19 04:27 Albumin 3.0 g/dL (3.5-5.7) L 02/24/19 04:27 HDL Cholesterol 25 mg/dL (40-59) L 02/24/19 04:27 Urine Clarity Cloudy (Clear) A 02/23/19 08:26 Urine Protein 100 mg/dL (Neg-Trace) H 02/23/19 08:26 Urine Blood Large (Negative) H 02/23/19 08:26 Ur Leukocyte Esterase Large (Negative) H 02/23/19 08:26 Urine Microscopic RBC TNTC per hpf (0-3) H 02/23/19 08:26 Urine Microscopic WBC TNTC per hpf (0-3) H 02/23/19 08:26 Ur Squamous Epith Cells Many per lpf (None-Few) H 02/23/19 08:26 Ur Culture Indicated? YES (NO) A 02/23/19 08:26 Diabetes panel 02/24/19 Range/Units 04:27 Sodium 139 (136-145) mEq/L Potassium 3.5 (3.5-5.1) mEq/L Chloride 105 (98-107) mEq/L Carbon Dioxide 24 (23-29) mEq/L BUN 15 (6-20) mg/dL Creatinine 0.91 (0.60-1.20) mg/dL Glucose 240 H (70-105) mg/dL Calcium 8.2 L (8.6-10.3) mg/dL AST 8 L (13-39) Units/L ALT 4 L (7-52) Units/L Alkaline Phosphatase 60 (34-104) Units/L Albumin 3.0 L (3.5-5.7) g/dL Triglycerides 90 (< 150) mg/dL HDL Cholesterol 25 L (40-59) mg/dL Thyroid panel 02/24/19 Range/Units 04:27 TSH 0.824 (0.340-5.600) mcIU/mL Calcium panel 02/24/19 Range/Units 04:27 Calcium 8.2 L (8.6-10.3) mg/dL Phosphorus 2.8 (2.7-4.5) mg/dL Albumin 3.0 L (3.5-5.7) g/dL Pituitary panel 02/24/19 02/24/19 Range/Units 04:27 04:27 Sodium 139 (136-145) mEq/L Potassium 3.5 (3.5-5.1) mEq/L Chloride 105 (98-107) mEq/L Carbon Dioxide 24 (23-29) mEq/L BUN 15 (6-20) mg/dL Creatinine 0.91 (0.60-1.20) mg/dL Glucose 240 H (70-105) mg/dL Calcium 8.2 L (8.6-10.3) mg/dL TSH 0.824 (0.340-5.600) mcIU/mL Adrenal panel 02/24/19 Range/Units 04:27 Sodium 139 (136-145) mEq/L Potassium 3.5 (3.5-5.1) mEq/L Chloride 105 (98-107) mEq/L Carbon Dioxide 24 (23-29) mEq/L BUN 15 (6-20) mg/dL Creatinine 0.91 (0.60-1.20) mg/dL Glucose 240 H (70-105) mg/dL Calcium 8.2 L (8.6-10.3) mg/dL Total Bilirubin 0.3 (0.3-1.0) mg/dL AST 8 L (13-39) Units/L ALT 4 L (7-52) Units/L Alkaline Phosphatase 60 (34-104) Units/L Albumin 3.0 L (3.5-5.7) g/dL All other labs normal. Consult Discharge Plan - Plan Referrals: Jai Clarke Jr, MD [Primary Care Provider] -
[2019-02-24 11:36] VITALS: BP 119/73
--- NOTE | 2019-02-24 14:33 | Discharge Summary ---
- NOTES TO OUTPATIENT PROVIDER Notes to Outpatient Provider: Pt was hospitalized for chest pain adn wekness. Pt has urology eval done. No antibiotic recommended. Hold flomax due to low BP. Echo and stress test normal. Hold Carvedilol and continue Lisinopril. F/u with cardiology outpatient. F/u with urology outpatient in 1 week. Date of Encounter: 02/24/19 Time of Encounter: 14:32 - Discharge Diagnosis (1) Chest pain Priority: Secondary Status: Acute Qualifiers: Chest pain type: chest pain due to myocardial ischemia Ischemic chest pain type: stable angina pectoris Qualified Code(s): I20.8 - Other forms of angina pectoris (2) DVT prophylaxis Priority: Secondary Status: Acute (3) Diabetes mellitus Priority: Secondary Status: Chronic Qualifiers: Diabetes mellitus type: type 2 Diabetes mellitus complication status: with circulatory complication Qualified Code(s): E11.51 - Type 2 diabetes mellitus with diabetic peripheral angiopathy without gangrene; Z79.4 - [facility] (current) use of insulin (4) Hypertension Priority: Secondary Status: Chronic Qualifiers: Hypertension type: unspecified Qualified Code(s): I10 - Essential (primary) hypertension (5) CAD (coronary artery disease) Priority: Secondary Status: Acute Qualifiers: Coronary Disease-Associated Artery/Lesion type: [place] artery [place] vs. transplanted heart: [place] heart Associated angina: angina presence unspecified Qualified Code(s): I25.10 - Atherosclerotic heart disease of [place] coronary artery without angina pectoris (6) Nephrolithiasis Priority: Secondary Status: Acute (7) Fatigue Priority: Primary Status: Acute Qualifiers: Fatigue type: unspecified Qualified Code(s): R53.83 - Other fatigue Hospital course: Ms. Harrington is a 48 year old female was hospitalized for chest pain and wekness. Pt has urology eval done. No antibiotic recommended. Hold flomax due to low BP. Echo and stress test was normal. Hold Carvedilol and continue Lisinopril. F/u with cardiology outpatient. F/u with urology outpatient in 1 week. Hold carvedilol until cardiology appt. Hold Flomax until urology appointment - Time Spent with Patient Total time spent providing and/or coordinating discharge services:35 Time spent: Greater than 30 minutes - Discharge Medications Prescriptions: Continued ALPRAZolam [Xanax 1 MG Tablet] 1 mg PO HS PRN PRN Reason: Anxiety Metformin HCl 500 mg PO BID #60 tablet Aspirin 81 mg PO DAILY Ticagrelor [Brilinta] 90 mg PO BID Lisinopril 5 mg PO DAILY Atorvastatin Calcium [Lipitor] 80 mg PO HS Nitroglycerin [Nitrostat] 0.4 mg SL PRN PRN PRN Reason: Angina Oxybutynin [Ditropan] 5 mg PO TID PRN 7 Days #20 tablet PRN Reason: Bladder/Stent irritation Discontinued Carvedilol [Coreg] 6.25 mg PO BID Tamsulosin [Flomax] 0.4 mg PO DAILY 10 Days #10 cap.er.24h Home Medications: ALPRAZolam [Xanax 1 MG Tablet] 1 mg PO HS PRN 05/24/18 [History] Metformin HCl 500 mg PO BID #60 tablet 05/24/18 [Rx] Aspirin 81 mg PO DAILY 08/21/18 [History] Atorvastatin Calcium [Lipitor] 80 mg PO HS 09/24/18 [History] Lisinopril 5 mg PO DAILY 09/24/18 [History] Nitroglycerin [Nitrostat] 0.4 mg SL PRN PRN 09/24/18 [History] Ticagrelor [Brilinta] 90 mg PO BID 09/24/18 [History] Oxybutynin [Ditropan] 5 mg PO TID PRN 7 Days #20 tablet 02/17/19 [Rx] Allergies/Adverse Reactions: Allergy/AdvReac Type Severity Reaction Status Date / Time Amoxicillin [From Augmentin] Allergy Rash Verified 02/24/19 09:16 clavulanic acid Allergy Rash Verified 02/24/19 09:16 [From Augmentin] Penicillins [PCN] AdvReac Gastrointestinal Verified 02/24/19 09:16 Upset/nausea/vomiting Date of admission: 02/23/19 10:42 Primary care physician: Jai Clarke Jr, MD Consults: 02/23/19 14:57 Consult to Cardiology [CONS] Routine Comment: Consulting Provider: Cardiology Tiffany Reason for Consult: kidnesy stone Call Completed: Yes Consult to Urology [CONS] Routine Consulting Provider: Urology Muse Reason for Consult: recent stent placment. CP Call Completed: Yes Discharging clinician: Zeeshan R Antonio - Constitutional Vitals: Temp Pulse Resp BP Pulse Ox 98.6 F 69 18 119/73 97 02/24/19 11:33 02/24/19 11:33 02/24/19 11:33 02/24/19 11:33 02/24/19 11:33 General appearance: Present: cooperative, A&O X 3 Exam: PHYSICAL EXAMINATION: GENERAL APPEARANCE: The patient is alert, oriented and in no acute distress. HEENT: Head is normocephalic. The sinuses are nontender. Pupils are equal and reactive. The nares are patent. Oropharynx clear without lesions. NECK: Supple without lymphadenopathy. HEART: Regular rate and rhythm. LUNGS: No crackles or wheezes are heard. ABDOMEN: Soft, nontender, nondistended with good bowel sounds heard. Inguinal area is normal. EXTREMITIES: Without cyanosis, clubbing or edema. NEUROLOGICAL: Gross nonfocal. SKIN: Warm and dry without any rash. - Patient Status Disposition: Home, Self-Care Condition: Good Overall status at discharge: patient is progressing back to baseline - Discharge Instructions Follow Up With: Jai Clarke Jr, MD [Primary Care Provider] - Additional Instructions: Hold carvedilol until see cardiology outpatient. Hold flomax until you see urology outpatient. - Diet and Activity Activity: increase activity as tolerated Diet: diabetic diet, low salt diet
== END 2019-02-24 16:10 | disposition home or self-care (01) ==
LOC: EMEROOARM 08:04 → 2ANU 08:04 → SUATTDRO 10:42 → 2ANU 11:50
PROVIDERS: ADMIT Internal Medicine Nephrology; ATTEND Family Medicine

== ENCOUNTER 2019-08-11 15:40 | Observation (INO) ==
[2019-08-11 16:59] LABS: Basophils % 0.6 %; Eosinophils # 0.2 K/mcL (0.0-0.6); Eosinophils % 2.9 %; Hemoglobin 12.4 g/dL (11.5-15.4); Immature Granulocytes % 0.3 % (0-4); Lymphocytes # 1.4 K/mcL (0.6-4.6); Lymphocytes % 19.2 %; Mean Corpuscular HGB Conc 33.5 g/dL (31.6-35.5); Mean Corpuscular Hemoglobin 30.5 pg (28.0-33.3); Mean Corpuscular Volume 91.1 fL (83.0-100.0); Mean Platelet Volume 9.6 fL (9.4-12.4); Monocytes # 0.6 K/mcL (0.0-1.3); Monocytes % 8.2 %; Platelet Count 285 K/mcL (140-400); Red Blood Count 4.06 M/mcL (3.82-4.97); Red Cell Distribution Width 13.3 % (11.5-14.5); Segmented Neutrophils % 68.8 %; White Blood Count 7.2 K/mcL (4.3-11.1)
[2019-08-11 17:08] LABS: BUN/Creatinine Ratio 20 (6-26); Blood Urea Nitrogen 18 mg/dL (6-20); Calcium 8.8 mg/dL (8.6-10.3); Carbon Dioxide 24 mEq/L (23-29); Chloride 106 mEq/L (98-107); Glucose 159 mg/dL (70-105); Osmolality,Calculated 291 (280-300); Potassium 4.1 mEq/L (3.5-5.1); Sodium 138 mEq/L (136-145); Troponin I < 0.03 ng/mL (< 0.04); eGFR For African Americans > 60 (> 60); eGFR For Non-African Americans > 60 (> 60)
[2019-08-11] MEDS ORDERED: ALPRAZolam 1 MG TABLET PO PRN (17:46)
[2019-08-11] MEDS ORDERED: *HR* Dextrose 50 % in Water (Syg) 50 ML SYRINGE IVP PRN (18:04)
[2019-08-11] MEDS ORDERED: D5% in Water 1,000 ML IVC PRN (18:04)
[2019-08-11] MEDS ORDERED: Dextrose Gel 15 GM/37.5 ML TUBE PO PRN ×2 (18:04)
[2019-08-11] MEDS ORDERED: Insulin LISPRO 300 UNITS/3 ML VIAL SQ SCH (21:00)
[2019-08-12 05:34] LABS: Basophils # 0.1 K/mcL (0.0-0.2); Basophils % 0.8 %; Eosinophils # 0.3 K/mcL (0.0-0.6); Eosinophils % 5.4 %; Hematocrit 35.4 % (35.3-44.9); Immature Granulocytes % 0.3 % (0-4); Lymphocytes # 1.6 K/mcL (0.6-4.6); Lymphocytes % 25.8 %; Mean Corpuscular HGB Conc 33.9 g/dL (31.6-35.5); Mean Corpuscular Hemoglobin 29.6 pg (28.0-33.3); Mean Corpuscular Volume 87.4 fL (83.0-100.0); Mean Platelet Volume 9.7 fL (9.4-12.4); Monocytes # 0.7 K/mcL (0.0-1.3); Monocytes % 11.5 %; Neutrophils # 3.4 K/mcL (1.6-8.9); Platelet Count 274 K/mcL (140-400); Red Blood Count 4.05 M/mcL (3.82-4.97); Red Cell Distribution Width 13.4 % (11.5-14.5); Segmented Neutrophils % 56.2 %; White Blood Count 6.1 K/mcL (4.3-11.1)
[2019-08-12 05:44] LABS: Prothrombin Time 11.8 Seconds (9.4-12.1)
[2019-08-12 06:13] LABS: Alanine Aminotransferase 7 Units/L (7-52); Albumin 3.3 g/dL (3.5-5.7); Albumin/Globulin Ratio 1.5 (1.1-2.2); Alkaline Phosphatase 53 Units/L (34-104); Aspartate Amino Transferase 11 Units/L (13-39); BUN/Creatinine Ratio 20 (6-26); Bilirubin,Total 0.7 mg/dL (0.3-1.0); Blood Urea Nitrogen 16 mg/dL (6-20); Calcium 8.8 mg/dL (8.6-10.3); Carbon Dioxide 24 mEq/L (23-29); Chloride 107 mEq/L (98-107); Globulin 2.2 g/dL (2.4-3.5); Glucose 186 mg/dL (70-105); Magnesium 1.5 mg/dL (1.6-2.6); Osmolality,Calculated 290 (280-300); Potassium 3.6 mEq/L (3.5-5.1); Sodium 137 mEq/L (136-145); Total Protein 5.5 g/dL (6.4-8.9); eGFR For African Americans > 60 (> 60); eGFR For Non-African Americans > 60 (> 60)
[2019-08-12 06:43] VITALS: BP 122/75
[2019-08-12] MEDS ORDERED: Insulin LISPRO 300 UNITS/3 ML VIAL SQ SCH (07:30)
[2019-08-12] MEDS ORDERED: Aspirin 81 MG TAB.CHEW PO SCH (09:00)
== END 2019-08-12 10:56 | disposition home or self-care (01) ==
LOC: 3BNU 15:40 → EMEROOARM 15:40 → SUATTDRO 17:25 → 3BNU 18:07
PROVIDERS: ADMIT Family Medicine; ATTEND Family Medicine

== ENCOUNTER 2021-09-26 15:32 | Observation (INO) ==
[2021-09-26] MEDS ORDERED: Aspirin 325 MG TABLET PO ONE (16:29)
[2021-09-26] MEDS ORDERED: Aspirin 81 MG TAB.CHEW PO ONE (16:40)
[2021-09-26 16:58] LABS: Basophils # 0.1 K/mcL (0.0-0.2); Basophils % 0.8 %; Eosinophils # 0.2 K/mcL (0.0-0.6); Eosinophils % 2.9 %; Hematocrit 37.7 % (35.3-44.9); Hemoglobin 12.3 g/dL (11.5-15.4); Immature Granulocytes % 0.4 % (0-4); Lymphocytes # 1.7 K/mcL (0.6-4.6); Lymphocytes % 23.7 %; Mean Corpuscular HGB Conc 32.6 g/dL (31.6-35.5); Mean Corpuscular Hemoglobin 30.4 pg (28.0-33.3); Mean Corpuscular Volume 93.1 fL (83.0-100.0); Mean Platelet Volume 10.2 fL (9.4-12.4); Monocytes # 0.8 K/mcL (0.0-1.3); Monocytes % 10.5 %; Neutrophils # 4.5 K/mcL (1.6-8.9); Platelet Count 282 K/mcL (140-400); Red Blood Count 4.05 M/mcL (3.82-4.97); Red Cell Distribution Width 12.5 % (11.5-14.5); Segmented Neutrophils % 61.7 %; White Blood Count 7.4 K/mcL (4.3-11.1)
[2021-09-26 17:19] LABS: Alanine Aminotransferase 6 Units/L (7-52); Albumin 3.8 g/dL (3.5-5.7); Albumin/Globulin Ratio 1.9 (1.1-2.2); Alkaline Phosphatase 55 Units/L (34-104); Aspartate Amino Transferase 11 Units/L (13-39); BUN/Creatinine Ratio 25 (6-26); Bilirubin,Direct 0.1 mg/dL (0.0-0.2); Bilirubin,Indirect 0.5 mg/dL (0.0-1.0); Bilirubin,Total 0.6 mg/dL (0.3-1.0); Blood Urea Nitrogen 22 mg/dL (6-20); Calcium 8.7 mg/dL (8.6-10.3); Carbon Dioxide 25 mEq/L (23-29); Chloride 103 mEq/L (98-107); Glucose 127 mg/dL (70-105); Lipase 82 Units/L (11-82); Osmolality,Calculated 289 (280-300); Potassium 3.8 mEq/L (3.5-5.1); Sodium 137 mEq/L (136-145); Total Protein 5.8 g/dL (6.4-8.9); Troponin I < 0.03 ng/mL (< 0.04); eGFR For African Americans > 60 (> 60); eGFR For Non-African Americans > 60 (> 60)
[2021-09-26] MEDS ORDERED: Naloxone 0.4 MG/ML INJ IVP PRN (18:02)
[2021-09-26] MEDS ORDERED: Melatonin 3 MG TABLET PO PRN (18:02)
[2021-09-26] MEDS ORDERED: Acetaminophen 325 MG TABLET PO PRN (18:02)
[2021-09-26] MEDS ORDERED: Ondansetron ODT 4 MG TAB.RAPDIS SL PRN (18:02)
[2021-09-26] MEDS ORDERED: Perflutren Lipid Microsphere 1.3 ML in 0.9 % Sodium Chloride 8.7 ML IVP PRN (18:05)
[2021-09-26] MEDS ORDERED: *HR* Dextrose 50 % in Water (Syg) 50 ML SYRINGE IVP PRN (18:07)
[2021-09-26] MEDS ORDERED: D5% in Water 1,000 ML IVC PRN (18:07)
[2021-09-26] MEDS ORDERED: Dextrose 4 GM Chewable Tablets PO PRN ×2 (18:07)
[2021-09-26] MEDS ORDERED: ALPRAZolam 1 MG TABLET PO PRN (18:08)
[2021-09-26] MEDS ORDERED: Nitroglycerin 0.4 MG TAB.SUBL SL PRN (18:08)
[2021-09-26 23:10] VITALS: O2SAT 98
[2021-09-27 01:28] LABS: Hematocrit 32.1 % (35.3-44.9); Mean Corpuscular HGB Conc 34.3 g/dL (31.6-35.5); Mean Corpuscular Hemoglobin 31.3 pg (28.0-33.3); Mean Corpuscular Volume 91.2 fL (83.0-100.0); Mean Platelet Volume 10.4 fL (9.4-12.4); Platelet Count 242 K/mcL (140-400); Red Blood Count 3.52 M/mcL (3.82-4.97); Red Cell Distribution Width 12.5 % (11.5-14.5)
[2021-09-27 01:38] LABS: Estimated Average Glucose 186 mg/dl; Hemoglobin A1C 8.1 %
[2021-09-27 01:43] LABS: BUN/Creatinine Ratio 26 (6-26); Blood Urea Nitrogen 25 mg/dL (6-20); Calcium 8.4 mg/dL (8.6-10.3); Carbon Dioxide 25 mEq/L (23-29); Chloride 103 mEq/L (98-107); Chol/HDL Ratio 2.6 (0-4.9); Cholesterol 97 mg/dL (< 200); Glucose 285 mg/dL (70-105); HDL Cholesterol 38 mg/dL (40-59); LDL Cholesterol,Calculated 44 mg/dL (< 100); Osmolality,Calculated 293 (280-300); Potassium 3.9 mEq/L (3.5-5.1); Sodium 134 mEq/L (136-145); Triglycerides 74 mg/dL (< 150); Troponin I < 0.03 ng/mL (< 0.04); eGFR For African Americans > 60 (> 60); eGFR For Non-African Americans > 60 (> 60)
[2021-09-27] MEDS ORDERED: Regadenoson 0.4 MG/5 ML SYRINGE IVP ONE (06:28)
[2021-09-27 07:14] VITALS: TEMP 98
[2021-09-27] MEDS ORDERED: Insulin LISPRO 300 UNITS/3 ML VIAL SUBQ SCH (07:30)
[2021-09-27] MEDS ORDERED: lisinopriL 5 MG TABLET PO SCH (09:00)
[2021-09-27] MEDS ORDERED: Isosorbide MONOnitrate (24 HR) 30 MG TAB.ER.24H PO SCH (09:00)
[2021-09-27] MEDS ORDERED: Aspirin 81 MG TAB.CHEW PO SCH (09:00)
[2021-09-27 10:23] VITALS: BP 130/77; PULSE 66
== END 2021-09-27 14:14 | disposition home or self-care (01) ==
LOC: EMEROOARM 15:32 → 3BNU 15:32
PROVIDERS: ADMIT Internal Medicine; ATTEND Internal Medicine